=== PATIENT | male | born 1940 | race Caucasian/White ===

== ENCOUNTER 2023-10-26 13:21 | Inpatient (IN) | payer MEDICARE ==
[~2023-10-26] VITALS: Ht 175.3 cm; Wt 83.9 kg
[2023-10-26] MEDS ORDERED: ASPI81CH33 PO (14:01)
[2023-10-26 14:33] LABS: BASO # 0.1 10^3/uL (0.0-0.2); BASO % 0.4 % (0.0-1.0); EOS # 0.1 10^3/uL (0.0-0.5); EOS % 0.2 % (0.0-3.0); HEMATOCRIT 41.9 % (42.0-52.0); HEMOGLOBIN 12.4 g/dl (13.5-17.5); LYMPH # 0.6 10^3/uL (1.5-5.0); LYMPH % 1.9 % (24.0-44.0); MEAN CORPUSCULAR HEMOGLOBIN 26.9 pg (27.0-33.0); MEAN CORPUSCULAR HGB CONC 29.6 g/dl (32.0-36.5); MEAN CORPUSCULAR VOLUME 90.9 fl (80.0-96.0); MONO # 1.2 10^3/uL (0.0-0.8); MONO % 4.1 % (2.0-8.0); NEUTROPHILS # 26.3 10^3/uL (1.5-8.5); NEUTROPHILS % 92.3 % (36.0-66.0); PLATELET COUNT, AUTOMATED 371 10^3/uL (150-450); RED BLOOD COUNT 4.61 10^6/uL (4.30-6.10); WHITE BLOOD COUNT 28.5 10^3/uL (4.0-10.0)
[2023-10-26] MEDS ORDERED: methylPREDNISolone 125MG 2ML VIAL IV ONE (14:35)
[2023-10-26] MEDS ORDERED: NS 1,000 ML IV ONE (14:35)
[2023-10-26] MEDS: COMBIVENT RESPIMAT 100-20MCG INHALER 4GM INH SCH ×3 (14:35→16:05)
[2023-10-26 15:01] LABS: VENOUS BASE EXCESS 5.6 (-2.0-2.0); VENOUS HCO3 32.9 MMOL/L (23.0-27.0); VENOUS O2 SATURATION 74.2 % (60.0-80.0); VENOUS PARTIAL PRESSURE CO2 60.6 mmHg (38.0-50.0); VENOUS PARTIAL PRESSURE O2 41.1 mmHg (30.0-50.0); VENOUS PH 7.353 UNITS (7.330-7.430); VENOUS TOTAL CO2 34.8 MMOL/L (24.0-28.0)
[2023-10-26 15:04] LABS: ALBUMIN 2.5 G/DL (3.2-5.2); ALKALINE PHOSPHATASE 107 U/L (46-116); ALT/SGPT < 9 U/L (7.0-40); AST/SGOT 14 U/L (<34); BILIRUBIN,DIRECT 0.1 MG/DL (<0.4); BILIRUBIN,TOTAL 0.3 MG/DL (0.3-1.2); BLOOD UREA NITROGEN 36 MG/DL (9-23); CALCIUM LEVEL 8.6 MG/DL (8.3-10.6); CARBON DIOXIDE LEVEL 32 MMOL/L (20-31); CHLORIDE LEVEL 99 MMOL/L (98-107); CREATININE FOR GFR 1.87 MG/DL (0.70-1.30); GLUCOSE, FASTING 173 MG/DL (74-106); POTASSIUM SERUM 5.4 MMOL/L (3.5-5.1); SODIUM LEVEL 135 MMOL/L (136-145); TOTAL PROTEIN 6.7 G/DL (5.7-8.2)
[2023-10-26 15:05] LABS: RSV AMPLIFICATION NEGATIVE (NEGATIVE)
[2023-10-26 15:28] LABS: CK-MB VALUE MASS < 1.0 NG/ML (<3.6)
[2023-10-26 15:29] LABS: CPK CREATINE PHOSPHOKINASE 19 U/L (46-171); MB/CK RELATIVE INDEX 5.26 (< OR =4)
[2023-10-26] MEDS ORDERED: cefTRIAXone SOD 1 GM in D5W MINI-BAG PLUS 50 ML IV ONE (16:00)
[2023-10-26] MEDS ORDERED: TORS20TA2 PO (17:11)
[2023-10-26] MEDS ORDERED: GABA-1171 PO (17:15)
[2023-10-26] MEDS ORDERED: FLOM0.4C39 PO (17:15)
[2023-10-26] MEDS ORDERED: METO1TAB32 PO (17:15)
[2023-10-26] MEDS ORDERED: med rec comment (17:22)
[2023-10-26] MEDS ORDERED: HOME MED LIST COMPLETE! XX SCH (17:25)
[2023-10-26] MEDS ORDERED: SODIUM CHLORIDE 0.9% 1000ML IV STA (17:47)
[2023-10-26] MEDS: DOXYCYCLINE HYCLATE 100 MG in D5W MINI-BAG PLUS 100 ML IV SCH (18:56)
[2023-10-26] MEDS: PIPERACILLIN/TAZOBACTAM SOD 3.375 GM in D5W MINI-BAG PLUS 50 ML IV SCH (19:53)
[2023-10-26] MEDS ORDERED: DEXTROSE 50% 50ML SYRINGE IV PRN (20:15)
[2023-10-26] MEDS ORDERED: GLUCOSE 4GM CHEW TABLET PO PRN (20:15)
[2023-10-26] MEDS ORDERED: GLUCAGON INJ 1MG VIAL SC PRN (20:15)
[2023-10-26] MEDS: INSULIN LISPRO (NovoLOG) PER UNIT SC SCH (20:33)
[2023-10-26 21:57] VITALS: BP 139/58; TEMP 97.5; O2SAT 91
[2023-10-27] MEDS: ACETAMINOPHEN 500 MG TAB PO PRN ×3 (00:54→18:35)
[2023-10-27] MEDS ORDERED: GABAPENTIN 400MG CAP PO ONE ×2 (01:00→20:35)
[2023-10-27] MEDS: PIPERACILLIN/TAZOBACTAM SOD 3.375 GM in D5W MINI-BAG PLUS 50 ML IV SCH ×4 (01:08→20:11)
[2023-10-27 06:00] VITALS: BP 153/61; TEMP 97.2; O2SAT 96
[2023-10-27] MEDS: DOXYCYCLINE HYCLATE 100 MG in D5W MINI-BAG PLUS 100 ML IV SCH ×2 (06:07→18:35)
[2023-10-27 06:09] LABS: HEMATOCRIT 36.5 % (42.0-52.0); MEAN CORPUSCULAR HEMOGLOBIN 27.1 pg (27.0-33.0); MEAN CORPUSCULAR HGB CONC 30.1 g/dl (32.0-36.5); MEAN CORPUSCULAR VOLUME 89.9 fl (80.0-96.0); PLATELET COUNT, AUTOMATED 356 10^3/uL (150-450); RED BLOOD COUNT 4.06 10^6/uL (4.30-6.10); WHITE BLOOD COUNT 21.1 10^3/uL (4.0-10.0)
[2023-10-27 06:44] LABS: CALCIUM LEVEL 8.1 MG/DL (8.3-10.6); CREATININE FOR GFR 1.66 MG/DL (0.70-1.30); GLOMERULAR FILTRATION RATE 42.4 (>35); MAGNESIUM LEVEL 2.4 MG/DL (1.8-2.4); POTASSIUM SERUM 5.1 MMOL/L (3.5-5.1)
[2023-10-27] MEDS ORDERED: BISACODYL 5MG TAB PO PRN (09:15)
[2023-10-27] MEDS: ASPIRIN 81MG CHEW TABLET PO SCH (09:29)
[2023-10-27] MEDS: TAMSULOSIN 0.4 MG CAP PO SCH (09:29)
[2023-10-27] MEDS: GABAPENTIN 100 MG CAP PO SCH (09:29)
[2023-10-27] MEDS: METOPROLOL SUCC *XL* 25MG TAB (TopROL *XL*) PO SCH (09:29)
[2023-10-27] MEDS: ENOXAPARIN 40MG/0.4ML SYRINGE (J1650 PER 10MG) SC SCH (09:30)
[2023-10-27] MEDS: INSULIN LISPRO (NovoLOG) PER UNIT SC SCH ×5 (09:41→21:25)
[2023-10-27] MEDS: MIRALAX *UNIT DOSE* 17GM PACKET PO SCH (09:48)
[2023-10-27] MEDS: SENOKOT S TAB PO SCH ×2 (09:48→20:14)
[2023-10-27] MEDS ORDERED: PILL CUTTER 1 EACH XX ONE (10:48)
[2023-10-27] MEDS: MORPHINE 30 MG TAB **MSIR PO PRN ×2 (10:54→20:12)
[2023-10-27 12:37] LABS: IMMUNOGLOBULIN A 344.8 MG/DL (40-350); IMMUNOGLOBULIN G 1697 MG/DL (650-1600)
[2023-10-27 12:51] LABS: IMMUNOGLOBULIN E 12.9 IU/ML (0-378)
[2023-10-27 14:00] VITALS: BP 126/54; TEMP 97.7; O2SAT 97
[2023-10-27] MEDS ORDERED: FINASTERIDE 5MG TAB PO SCH (21:00)
[2023-10-27 22:00] VITALS: BP 148/89; TEMP 97.5; O2SAT 93
[2023-10-27 22:05] VITALS: BP 148/89; TEMP 97.5; O2SAT 93
[2023-10-27] MEDS ORDERED: RAMELTEON 8 MG TAB (ROZEREM) PO PRN (23:15)
[2023-10-28] MEDS: PIPERACILLIN/TAZOBACTAM SOD 3.375 GM in D5W MINI-BAG PLUS 50 ML IV SCH ×3 (02:47→14:11)
[2023-10-28 06:00] VITALS: BP 147/66; TEMP 97.7; O2SAT 96
[2023-10-28] MEDS: DOXYCYCLINE HYCLATE 100 MG in D5W MINI-BAG PLUS 100 ML IV SCH (06:10)
[2023-10-28 06:38] LABS: BASO # 0.1 10^3/uL (0.0-0.2); BASO % 0.3 % (0.0-1.0); EOS # 0.3 10^3/uL (0.0-0.5); EOS % 1.9 % (0.0-3.0); HEMATOCRIT 35.5 % (42.0-52.0); HEMOGLOBIN 10.6 g/dl (13.5-17.5); LYMPH # 1.6 10^3/uL (1.5-5.0); LYMPH % 9.3 % (24.0-44.0); MEAN CORPUSCULAR HEMOGLOBIN 27.2 pg (27.0-33.0); MEAN CORPUSCULAR HGB CONC 29.9 g/dl (32.0-36.5); MEAN CORPUSCULAR VOLUME 91.3 fl (80.0-96.0); MONO # 1.1 10^3/uL (0.0-0.8); MONO % 6.3 % (2.0-8.0); NEUTROPHILS # 13.5 10^3/uL (1.5-8.5); NEUTROPHILS % 81.7 % (36.0-66.0); PLATELET COUNT, AUTOMATED 366 10^3/uL (150-450); RED BLOOD COUNT 3.89 10^6/uL (4.30-6.10); WHITE BLOOD COUNT 16.6 10^3/uL (4.0-10.0)
[2023-10-28 07:03] LABS: C REACTIVE PROTEIN QUANTITATIV 9.7 MG/DL (<1.0)
[2023-10-28 07:05] LABS: CALCIUM LEVEL 8.4 MG/DL (8.3-10.6); CREATININE FOR GFR 1.55 MG/DL (0.70-1.30); GLOMERULAR FILTRATION RATE 45.9 (>35); MAGNESIUM LEVEL 2.3 MG/DL (1.8-2.4)
[2023-10-28] MEDS ORDERED: METR-265 PO (08:35)
[2023-10-28] MEDS ORDERED: DOXY100C3 PO (08:35)
[2023-10-28] MEDS ORDERED: LEVO1TAB40 PO (08:35)
[2023-10-28] MEDS ORDERED: PROBCAP2 PO (08:35)
[2023-10-28] MEDS: ENOXAPARIN 40MG/0.4ML SYRINGE (J1650 PER 10MG) SC SCH (09:00)
[2023-10-28] MEDS: MIRALAX *UNIT DOSE* 17GM PACKET PO SCH (09:10)
[2023-10-28] MEDS: GABAPENTIN 100 MG CAP PO SCH (09:11)
[2023-10-28] MEDS: SENOKOT S TAB PO SCH (09:11)
[2023-10-28] MEDS: ASPIRIN 81MG CHEW TABLET PO SCH (09:11)
[2023-10-28] MEDS: TAMSULOSIN 0.4 MG CAP PO SCH (09:11)
[2023-10-28 09:17] VITALS: BP 154/60
[2023-10-28] MEDS: METOPROLOL SUCC *XL* 25MG TAB (TopROL *XL*) PO SCH (09:17)
[2023-10-28] MEDS: INSULIN LISPRO (NovoLOG) PER UNIT SC SCH ×2 (09:20→13:06)
[2023-10-28] MEDS ORDERED: LACT20EL PO (10:12)
[2023-10-28] MEDS ORDERED: DOCU8.6T PO (10:12)
[2023-10-28] MEDS ORDERED: POLY17PO18 PO (10:12)
[2023-10-28] MEDS: ACETAMINOPHEN 500 MG TAB PO PRN (11:29)
[2023-10-28 14:00] VITALS: BP 150/58; TEMP 97.5; O2SAT 92
[2023-10-28] MEDS ORDERED: DOXYCYCLINE HYCLATE 100MG TABLET PO SCH (21:00)
[2023-10-29 15:12] LABS: BODY FLUID CULTURE Not indicated. (.); LEGIONELLA ANTIGEN URINE Negative (Negative); ORGANISM ID Not indicated. (.); SPECIMEN SOURCE Urine (.); URINE STREP PNEUMONIAE ANTIGEN Negative (Negative)
== END 2023-10-28 15:58 | disposition home or self-care (01) | DRG 871 ==
LOC: EDBD 13:21 → EDSEX 13:21 → M ED 13:21 → M ED INP 17:39 → M MSPAV 21:56
PROVIDERS: ADMIT Internal Medicine; ATTEND Internal Medicine
DX: A41.9 Sepsis, unspecified organism (principal); J18.9 Pneumonia, unspecified organism; J96.01 Acute respiratory failure with hypoxia; N17.0 Acute kidney failure with tubular necrosis; I50.32 Chronic diastolic (congestive) heart failure; I13.0 Hypertensive heart and chronic kidney disease with heart failure and stage 1 through stage 4 chronic kidney disease, or unspecified chronic kidney disease; E78.5 Hyperlipidemia, unspecified; I25.10 Atherosclerotic heart disease of native coronary artery without angina pectoris; G89.29 Other chronic pain; E11.40 Type 2 diabetes mellitus with diabetic neuropathy, unspecified; N40.1 Benign prostatic hyperplasia with lower urinary tract symptoms; R33.9 Retention of urine, unspecified; E11.51 Type 2 diabetes mellitus with diabetic peripheral angiopathy without gangrene; J47.9 Bronchiectasis, uncomplicated; K59.09 Other constipation; K21.9 Gastro-esophageal reflux disease without esophagitis; I44.7 Left bundle-branch block, unspecified; E11.22 Type 2 diabetes mellitus with diabetic chronic kidney disease; N18.30 Chronic kidney disease, stage 3 unspecified; K55.20 Angiodysplasia of colon without hemorrhage; Z95.5 Presence of coronary angioplasty implant and graft; Z89.422 Acquired absence of other left toe(s); Z99.81 Dependence on supplemental oxygen; Z79.82 Long term (current) use of aspirin; Z79.899 Other long term (current) drug therapy; E11.65 Type 2 diabetes mellitus with hyperglycemia

== ENCOUNTER 2023-10-31 18:24 | Emergency (ER) | payer MEDICARE ==
[~2023-10-31] VITALS: Ht 175.3 cm; Wt 83.9 kg
[~2023-10-31 18:24] MED LIST: ASPI81CH33 PO; DOCU8.6T PO; DOXY100C3 PO; FLOM0.4C39 PO; GABA-1171 PO; LACT20EL PO; LEVO1TAB40 PO; METO1TAB32 PO; METR-265 PO; POLY17PO18 PO; PROBCAP2 PO; TORS20TA2 PO; med rec comment
[2023-10-31 18:38] VITALS: TEMP 97.5
[2023-10-31] MEDS ORDERED: NS 500 ML IV ONE (18:40)
[2023-10-31 19:03] LABS: BASO # 0.1 10^3/uL (0.0-0.2); BASO % 0.8 % (0.0-1.0); EOS # 0.4 10^3/uL (0.0-0.5); EOS % 3.7 % (0.0-3.0); HEMOGLOBIN 12.4 g/dl (13.5-17.5); LYMPH # 1.1 10^3/uL (1.5-5.0); LYMPH % 10.4 % (24.0-44.0); MEAN CORPUSCULAR HEMOGLOBIN 27.1 pg (27.0-33.0); MEAN CORPUSCULAR HGB CONC 30.2 g/dl (32.0-36.5); MEAN CORPUSCULAR VOLUME 89.7 fl (80.0-96.0); MONO # 0.7 10^3/uL (0.0-0.8); MONO % 6.4 % (2.0-8.0); NEUTROPHILS # 7.9 10^3/uL (1.5-8.5); NEUTROPHILS % 77.5 % (36.0-66.0); PLATELET COUNT, AUTOMATED 416 10^3/uL (150-450); RED BLOOD COUNT 4.57 10^6/uL (4.30-6.10); WHITE BLOOD COUNT 10.1 10^3/uL (4.0-10.0)
[2023-10-31 19:32] LABS: ALBUMIN 2.4 G/DL (3.2-5.2); ALKALINE PHOSPHATASE 86 U/L (46-116); ALT/SGPT < 9 U/L (7.0-40); AST/SGOT < 8 U/L (<34); BILIRUBIN,DIRECT 0.2 MG/DL (<0.4); BILIRUBIN,TOTAL 0.3 MG/DL (0.3-1.2); BLOOD UREA NITROGEN 21 MG/DL (9-23); CALCIUM LEVEL 8.9 MG/DL (8.3-10.6); CARBON DIOXIDE LEVEL 28 MMOL/L (20-31); CHLORIDE LEVEL 105 MMOL/L (98-107); CK-MB VALUE MASS < 1.0 NG/ML (<3.6); CPK CREATINE PHOSPHOKINASE 25 U/L (46-171); CREATININE FOR GFR 1.06 MG/DL (0.70-1.30); GLOMERULAR FILTRATION RATE > 60.0 (>35); GLUCOSE, FASTING 152 MG/DL (74-106); POTASSIUM SERUM 5.2 MMOL/L (3.5-5.1); SODIUM LEVEL 135 MMOL/L (136-145); TOTAL PROTEIN 6.3 G/DL (5.7-8.2)
[2023-10-31 19:34] LABS: THYROXINE (T4) 7.9 UG/DL (4.5-10.9)
[2023-10-31 19:35] LABS: THYROID STIMULATING HORMONE 0.973 uIU/ML (0.55-4.78)
[2023-10-31 20:12] LABS: PROCALCITONIN 0.11 ng/ml
[2023-10-31 20:21] LABS: CK-MB VALUE MASS < 1.0 NG/ML (<3.6)
[2023-10-31 20:24] LABS: CPK CREATINE PHOSPHOKINASE 18 U/L (46-171); MB/CK RELATIVE INDEX 5.55 (< OR =4)
[2023-10-31 21:20] VITALS: O2SAT 92
[2023-10-31 22:31] VITALS: BP 169/95; O2SAT 94
== END 2023-10-31 22:38 | disposition home or self-care (01) ==
LOC: EDBD 18:24 → M ED 18:24
DX: I50.9 Heart failure, unspecified (principal); R53.1 Weakness; I25.10 Atherosclerotic heart disease of native coronary artery without angina pectoris; E11.9 Type 2 diabetes mellitus without complications; I10 Essential (primary) hypertension; K21.9 Gastro-esophageal reflux disease without esophagitis; F17.200 Nicotine dependence, unspecified, uncomplicated; Z79.82 Long term (current) use of aspirin; Z79.899 Other long term (current) drug therapy

== ENCOUNTER 2023-11-05 12:04 | Inpatient (IN) | payer MEDICARE ==
[~2023-11-05] VITALS: Ht 175.3 cm; Wt 84.1 kg
[2023-11-05 12:56] LABS: BASO # 0.1 10^3/uL (0.0-0.2); BASO % 0.4 % (0.0-1.0); EOS # 0.2 10^3/uL (0.0-0.5); EOS % 1.1 % (0.0-3.0); HEMATOCRIT 40.9 % (42.0-52.0); HEMOGLOBIN 12.2 g/dl (13.5-17.5); LYMPH # 0.7 10^3/uL (1.5-5.0); LYMPH % 3.8 % (24.0-44.0); MEAN CORPUSCULAR HEMOGLOBIN 26.9 pg (27.0-33.0); MEAN CORPUSCULAR HGB CONC 29.8 g/dl (32.0-36.5); MEAN CORPUSCULAR VOLUME 90.3 fl (80.0-96.0); MONO # 1.2 10^3/uL (0.0-0.8); MONO % 6.7 % (2.0-8.0); NEUTROPHILS % 87.2 % (36.0-66.0); PLATELET COUNT, AUTOMATED 346 10^3/uL (150-450); RED BLOOD COUNT 4.53 10^6/uL (4.30-6.10); WHITE BLOOD COUNT 18.4 10^3/uL (4.0-10.0)
[2023-11-05] MEDS ORDERED: NS 1,000 ML IV SCH (13:05)
[2023-11-05] MEDS ORDERED: NS 500 ML IV ONE (13:05)
[2023-11-05 13:24] LABS: BLOOD UREA NITROGEN 39 MG/DL (9-23); CALCIUM LEVEL 8.5 MG/DL (8.3-10.6); CARBON DIOXIDE LEVEL 30 MMOL/L (20-31); CHLORIDE LEVEL 98 MMOL/L (98-107); CK-MB VALUE MASS < 1.0 NG/ML (<3.6); CPK CREATINE PHOSPHOKINASE < 15 U/L (46-171); CREATININE FOR GFR 2.19 MG/DL (0.70-1.30); GLOMERULAR FILTRATION RATE 30.8 (>35); GLUCOSE, FASTING 141 MG/DL (74-106); POTASSIUM SERUM 4.1 MMOL/L (3.5-5.1); SODIUM LEVEL 133 MMOL/L (136-145)
[2023-11-05 13:26] LABS: THYROID STIMULATING HORMONE 1.375 uIU/ML (0.55-4.78)
[2023-11-05 13:27] LABS: FREE T4 1.14 NG/DL (0.89-1.76)
[2023-11-05 13:45] LABS: RSV AMPLIFICATION NEGATIVE (NEGATIVE)
[2023-11-05] MEDS ORDERED: cefTRIAXone SOD 2 GM in D5W MINI-BAG PLUS 50 ML IV ONE (14:05)
[2023-11-05] MEDS ORDERED: AZITHROMYCIN INJ 500 MG, VIAL MATE ADAPTER 1 EACH in D5W 250 ML IV ONE (14:05)
[2023-11-05 14:25] LABS: CK-MB VALUE MASS < 1.0 NG/ML (<3.6)
[2023-11-05 14:29] LABS: CPK CREATINE PHOSPHOKINASE < 15 U/L (46-171)
[2023-11-05] MEDS ORDERED: GOOD8.6T2 PO (14:41)
[2023-11-05] MEDS ORDERED: METR-265 PO (14:41)
[2023-11-05] MEDS ORDERED: GABA-284 PO (14:41)
[2023-11-05] MEDS ORDERED: BACI1CAP PO (14:41)
[2023-11-05] MEDS ORDERED: LEVO750T14 PO (14:41)
[2023-11-05] MEDS ORDERED: DOXY100T PO (14:41)
[2023-11-05] MEDS ORDERED: HOME MED LIST COMPLETE! XX SCH (14:45)
[2023-11-05] MEDS ORDERED: IPRATROPIUM 0.5MG/ALBUTEROL 2.5MG INH SOL UD 3ML (DUONEB) NEB PRN (14:50)
[2023-11-05 16:06] LABS: COMPLEMENT C3 89.4 MG/DL (90.0-170.0); COMPLEMENT C4 17.1 MG/DL (12-36); IMMUNOGLOBULIN A 305.3 MG/DL (40-350); IMMUNOGLOBULIN G 1384 MG/DL (650-1600)
[2023-11-05] MEDS: IPRATROPIUM 0.5MG/ALBUTEROL 2.5MG INH SOL UD 3ML (DUONEB) NEB SCH ×2 (16:19→19:49)
[2023-11-05] MEDS ORDERED: SENOKOT S TAB PO PRN (17:00)
[2023-11-05] MEDS: PANTOPRAZOLE 40MG TAB (PROTONIX) PO SCH (18:33)
[2023-11-05] MEDS: LACTOBACILLUS ACIDOPHILUS CAP (BACID) PO SCH ×2 (18:34→20:10)
[2023-11-05] MEDS ORDERED: D5W/0.9% SODIUM CHLORIDE 1,000 ML IV SCH (19:25)
[2023-11-05 19:35] LABS: CK-MB VALUE MASS < 1.0 NG/ML (<3.6)
[2023-11-05 19:38] LABS: CPK CREATINE PHOSPHOKINASE 17 U/L (46-171); MB/CK RELATIVE INDEX 5.88 (< OR =4)
[2023-11-05 20:04] LABS: HIV 1&2 SCREEN NEGATIVE (NEGATIVE)
[2023-11-05 20:13] LABS: HEPATITIS C VIRUS ABY INDEX 0.32 INDEX (<0.8)
[2023-11-05] MEDS: PIPERACILLIN/TAZOBACTAM SOD 3.375 GM in D5W MINI-BAG PLUS 50 ML IV SCH (20:15)
[2023-11-05] MEDS ORDERED: DOXYCYCLINE HYCLATE 100 MG in D5W MINI-BAG PLUS 100 ML IV SCH (21:00)
[2023-11-06 01:00] LABS: CK-MB VALUE MASS < 1.0 NG/ML (<3.6)
[2023-11-06 01:02] LABS: CPK CREATINE PHOSPHOKINASE 15 U/L (46-171); MB/CK RELATIVE INDEX 6.66 (< OR =4)
[2023-11-06] MEDS: PIPERACILLIN/TAZOBACTAM SOD 3.375 GM in D5W MINI-BAG PLUS 50 ML IV SCH ×4 (03:03→20:19)
[2023-11-06 06:14] LABS: BASO # 0.1 10^3/uL (0.0-0.2); BASO % 0.4 % (0.0-1.0); EOS # 0.6 10^3/uL (0.0-0.5); HEMATOCRIT 34.8 % (42.0-52.0); HEMOGLOBIN 10.6 g/dl (13.5-17.5); LYMPH % 8.4 % (24.0-44.0); MEAN CORPUSCULAR HEMOGLOBIN 27.1 pg (27.0-33.0); MEAN CORPUSCULAR HGB CONC 30.5 g/dl (32.0-36.5); MONO # 1.2 10^3/uL (0.0-0.8); MONO % 10.1 % (2.0-8.0); NEUTROPHILS % 75.6 % (36.0-66.0); PLATELET COUNT, AUTOMATED 320 10^3/uL (150-450); RED BLOOD COUNT 3.91 10^6/uL (4.30-6.10); WHITE BLOOD COUNT 11.8 10^3/uL (4.0-10.0)
[2023-11-06 06:37] LABS: CK-MB VALUE MASS < 1.0 NG/ML (<3.6)
[2023-11-06 06:39] LABS: BLOOD UREA NITROGEN 34 MG/DL (9-23); CALCIUM LEVEL 7.8 MG/DL (8.3-10.6); CARBON DIOXIDE LEVEL 29 MMOL/L (20-31); CHLORIDE LEVEL 104 MMOL/L (98-107); CPK CREATINE PHOSPHOKINASE 18 U/L (46-171); GLOMERULAR FILTRATION RATE 38.6 (>35); GLUCOSE, FASTING 158 MG/DL (74-106); MAGNESIUM LEVEL 1.8 MG/DL (1.8-2.4); MB/CK RELATIVE INDEX 5.55 (< OR =4); POTASSIUM SERUM 4.2 MMOL/L (3.5-5.1); SODIUM LEVEL 139 MMOL/L (136-145)
[2023-11-06] MEDS: LACTOBACILLUS ACIDOPHILUS CAP (BACID) PO SCH ×4 (08:00→20:14)
[2023-11-06] MEDS: IPRATROPIUM 0.5MG/ALBUTEROL 2.5MG INH SOL UD 3ML (DUONEB) NEB SCH ×4 (08:29→19:04)
[2023-11-06] MEDS: PANTOPRAZOLE 40MG TAB (PROTONIX) PO SCH (08:51)
[2023-11-06] MEDS: ASPIRIN 81MG CHEW TABLET PO SCH (08:51)
[2023-11-06] MEDS: GABAPENTIN 400MG CAP PO SCH (08:51)
[2023-11-06] MEDS: TAMSULOSIN 0.4 MG CAP PO SCH (08:52)
[2023-11-06] MEDS: METOPROLOL SUCC *XL* 25MG TAB (TopROL *XL*) PO SCH (08:52)
[2023-11-06 09:00] VITALS: BP 168/71; O2SAT 99
[2023-11-06 09:30] VITALS: TEMP 97.3
[2023-11-06] MEDS ORDERED: ACETAMINOPHEN *IV* 1,000 MG in IV 1 EA IV ONE (10:15)
[2023-11-06] MEDS ORDERED: CETACAINE SPRAY 5GM As Ordered ONE (12:50)
[2023-11-06] MEDS ORDERED: SUGAMMADEX SODIUM 500 MG/5 ML VIAL (BRIDION) As Ordered ONE (13:23)
[2023-11-06] MEDS ORDERED: fentaNYL 100 MCG/2 ML INJECTION As Ordered ONE (13:23)
[2023-11-06] MEDS ORDERED: MIDAZOLAM INJ 2MG/2ML VIAL As Ordered ONE (13:23)
[2023-11-06] MEDS ORDERED: ROCURONIUM BROMIDE 50MG/5ML VIAL As Ordered ONE (13:23)
[2023-11-06] MEDS ORDERED: ONDANSETRON 4MG 2ML VIAL As Ordered ONE (13:23)
[2023-11-06] MEDS ORDERED: LIDOCAINE 2% 100MG/5ML SDV (FOR ANES.) As Ordered ONE (13:23)
[2023-11-06] MEDS ORDERED: propofoL 200 MG/20 ML VIAL As Ordered ONE (13:23)
[2023-11-06] MEDS ORDERED: ePHEDrine SULFATE 25 MG/5 ML(5MG/ML) SYRINGE As Ordered ONE (13:28)
[2023-11-06] MEDS ORDERED: cefTRIAXone SOD 2 GM in D5W MINI-BAG PLUS 50 ML IV SCH (14:00)
[2023-11-06 14:42] VITALS: BP 130/73; TEMP 97.3; O2SAT 96
[2023-11-06] MEDS ORDERED: MORPHINE 30 MG TAB **MSIR PO SCH (17:35)
[2023-11-06] MEDS ORDERED: PILL CUTTER 1 EACH XX PRN (17:45)
[2023-11-06] MEDS: INSULIN LISPRO (NovoLOG) PER UNIT SC SCH ×2 (18:12→21:18)
[2023-11-06] MEDS: MORPHINE 30 MG TAB **MSIR PO SCH (20:14)
[2023-11-06] MEDS: RAMELTEON 8 MG TAB (ROZEREM) PO SCH (21:00)
[2023-11-06 21:31] VITALS: BP 138/60; TEMP 97.4; O2SAT 99
[2023-11-06] MEDS ORDERED: MAALOX 30 ML SUSP *UDC PO PRN (21:50)
[2023-11-07] MEDS: PIPERACILLIN/TAZOBACTAM SOD 3.375 GM in D5W MINI-BAG PLUS 50 ML IV SCH ×4 (02:43→20:14)
[2023-11-07 05:33] VITALS: BP 154/69; TEMP 97.3; O2SAT 96
[2023-11-07 06:22] LABS: BASO % 0.3 % (0.0-1.0); EOS % 0.2 % (0.0-3.0); HEMATOCRIT 34.6 % (42.0-52.0); HEMOGLOBIN 10.7 g/dl (13.5-17.5); LYMPH # 0.5 10^3/uL (1.5-5.0); LYMPH % 4.5 % (24.0-44.0); MEAN CORPUSCULAR HEMOGLOBIN 27.6 pg (27.0-33.0); MEAN CORPUSCULAR HGB CONC 30.9 g/dl (32.0-36.5); MEAN CORPUSCULAR VOLUME 89.2 fl (80.0-96.0); MONO # 0.6 10^3/uL (0.0-0.8); MONO % 5.7 % (2.0-8.0); NEUTROPHILS # 10.1 10^3/uL (1.5-8.5); NEUTROPHILS % 88.8 % (36.0-66.0); PLATELET COUNT, AUTOMATED 342 10^3/uL (150-450); RED BLOOD COUNT 3.88 10^6/uL (4.30-6.10); WHITE BLOOD COUNT 11.3 10^3/uL (4.0-10.0)
[2023-11-07 06:50] LABS: CALCIUM LEVEL 8.6 MG/DL (8.3-10.6); CREATININE FOR GFR 1.53 MG/DL (0.70-1.30); GLOMERULAR FILTRATION RATE 46.6 (>35); MAGNESIUM LEVEL 2.1 MG/DL (1.8-2.4); POTASSIUM SERUM 4.6 MMOL/L (3.5-5.1)
[2023-11-07] MEDS: IPRATROPIUM 0.5MG/ALBUTEROL 2.5MG INH SOL UD 3ML (DUONEB) NEB SCH ×4 (07:04→20:00)
[2023-11-07] MEDS: GABAPENTIN 400MG CAP PO SCH (08:08)
[2023-11-07] MEDS: INSULIN LISPRO (NovoLOG) PER UNIT SC SCH ×4 (08:08→20:19)
[2023-11-07] MEDS: ASPIRIN 81MG CHEW TABLET PO SCH (08:09)
[2023-11-07] MEDS: LACTOBACILLUS ACIDOPHILUS CAP (BACID) PO SCH ×4 (08:09→20:14)
[2023-11-07] MEDS: PANTOPRAZOLE 40MG TAB (PROTONIX) PO SCH (08:09)
[2023-11-07] MEDS: TAMSULOSIN 0.4 MG CAP PO SCH (08:09)
[2023-11-07] MEDS: METOPROLOL SUCC *XL* 25MG TAB (TopROL *XL*) PO SCH (08:13)
[2023-11-07] MEDS: MORPHINE 30 MG TAB **MSIR PO SCH ×2 (08:15→20:15)
[2023-11-07] MEDS: SENOKOT S TAB PO SCH ×2 (09:00→20:16)
[2023-11-07] MEDS: NS 0.45% 1,000 ML IV SCH (10:54)
[2023-11-07 13:44] VITALS: BP 149/69; TEMP 97.5; O2SAT 10; O2SAT 100
[2023-11-07] MEDS: RAMELTEON 8 MG TAB (ROZEREM) PO SCH (20:19)
[2023-11-07 21:03] VITALS: BP 164/68; TEMP 97.6; O2SAT 99
[2023-11-07] MEDS ORDERED: TIMO0.5S39 OU (21:38)
[2023-11-07] MEDS ORDERED: INSU100V19 SC (21:38)
[2023-11-07] MEDS ORDERED: BRIM0.2S13 OU (21:38)
[2023-11-07] MEDS ORDERED: HUMU1INJ2 SC (21:38)
[2023-11-07] MEDS: LEVEMIR (INSULIN DETEMIR) 1 UNITS/0.01ML SC SCH (22:23)
[2023-11-08] MEDS: PIPERACILLIN/TAZOBACTAM SOD 3.375 GM in D5W MINI-BAG PLUS 50 ML IV SCH ×4 (03:36→22:06)
[2023-11-08] MEDS: NS 0.45% 1,000 ML IV SCH ×2 (03:36→11:21)
[2023-11-08 05:34] VITALS: BP 159/66; TEMP 98.3; O2SAT 91
[2023-11-08 06:14] LABS: BASO # 0.1 10^3/uL (0.0-0.2); BASO % 0.7 % (0.0-1.0); EOS # 0.7 10^3/uL (0.0-0.5); EOS % 6.8 % (0.0-3.0); HEMATOCRIT 34.6 % (42.0-52.0); HEMOGLOBIN 10.5 g/dl (13.5-17.5); LYMPH # 1.9 10^3/uL (1.5-5.0); LYMPH % 18.7 % (24.0-44.0); MEAN CORPUSCULAR HEMOGLOBIN 27.4 pg (27.0-33.0); MEAN CORPUSCULAR HGB CONC 30.3 g/dl (32.0-36.5); MEAN CORPUSCULAR VOLUME 90.3 fl (80.0-96.0); MONO # 0.9 10^3/uL (0.0-0.8); NEUTROPHILS # 6.5 10^3/uL (1.5-8.5); NEUTROPHILS % 64.5 % (36.0-66.0); PLATELET COUNT, AUTOMATED 369 10^3/uL (150-450); RED BLOOD COUNT 3.83 10^6/uL (4.30-6.10); WHITE BLOOD COUNT 10.1 10^3/uL (4.0-10.0)
[2023-11-08 06:43] LABS: CALCIUM LEVEL 8.9 MG/DL (8.3-10.6); CREATININE FOR GFR 1.47 MG/DL (0.70-1.30); GLOMERULAR FILTRATION RATE 48.8 (>35); POTASSIUM SERUM 4.6 MMOL/L (3.5-5.1)
[2023-11-08] MEDS: IPRATROPIUM 0.5MG/ALBUTEROL 2.5MG INH SOL UD 3ML (DUONEB) NEB SCH ×4 (07:09→21:05)
[2023-11-08] MEDS: HumuLIN N INSULIN (NovoLIN N) PER UNIT SC SCH ×2 (08:00→18:00)
[2023-11-08] MEDS ORDERED: BRIMONIDINE TARTRATE 0.2% OU SCH (09:00)
[2023-11-08] MEDS ORDERED: TIMOLOL MALEATE 0.5% OPHTH SOLN 5 ML OU SCH (09:00)
[2023-11-08] MEDS: LEVEMIR (INSULIN DETEMIR) 1 UNITS/0.01ML SC SCH (09:00)
[2023-11-08] MEDS: INSULIN LISPRO (NovoLOG) PER UNIT SC SCH ×4 (09:28→20:29)
[2023-11-08] MEDS: ASPIRIN 81MG CHEW TABLET PO SCH (09:28)
[2023-11-08] MEDS: PANTOPRAZOLE 40MG TAB (PROTONIX) PO SCH (09:29)
[2023-11-08] MEDS: LACTOBACILLUS ACIDOPHILUS CAP (BACID) PO SCH ×4 (09:29→22:02)
[2023-11-08] MEDS: TAMSULOSIN 0.4 MG CAP PO SCH (09:29)
[2023-11-08] MEDS: SENOKOT S TAB PO SCH ×2 (09:29→22:02)
[2023-11-08] MEDS: GABAPENTIN 400MG CAP PO SCH (09:29)
[2023-11-08] MEDS: MORPHINE 30 MG TAB **MSIR PO SCH ×2 (09:31→22:05)
[2023-11-08] MEDS: METOPROLOL SUCC *XL* 25MG TAB (TopROL *XL*) PO SCH (09:33)
[2023-11-08] MEDS ORDERED: TORS20TA2 PO (10:09)
[2023-11-08] MEDS: TIMOLOL MALEATE 0.5% OPHTH SOLN 5 ML OU SCH ×2 (10:53→22:06)
[2023-11-08] MEDS: BRIMONIDINE 0.1% OPHTH SOLN 5ML OU SCH ×2 (10:54→22:06)
[2023-11-08] MEDS: ACETAMINOPHEN TAB 650MG DOSE (2X325MG) PO PRN (11:29)
[2023-11-08 14:00] VITALS: BP 161/66; TEMP 97.5; O2SAT 100
[2023-11-08 19:53] LABS: BLOOD UREA NITROGEN 19 MG/DL (9-23); CALCIUM LEVEL 8.7 MG/DL (8.3-10.6); CARBON DIOXIDE LEVEL 29 MMOL/L (20-31); CHLORIDE LEVEL 105 MMOL/L (98-107); CREATININE FOR GFR 1.22 MG/DL (0.70-1.30); GLOMERULAR FILTRATION RATE > 60.0 (>35); GLUCOSE, FASTING 207 MG/DL (74-106); POTASSIUM SERUM 4.4 MMOL/L (3.5-5.1); SODIUM LEVEL 137 MMOL/L (136-145)
[2023-11-08 20:06] VITALS: BP 165/72; TEMP 97.5; O2SAT 93
[2023-11-08] MEDS: RAMELTEON 8 MG TAB (ROZEREM) PO SCH (22:03)
[2023-11-09] MEDS: PIPERACILLIN/TAZOBACTAM SOD 3.375 GM in D5W MINI-BAG PLUS 50 ML IV SCH ×4 (03:02→20:51)
[2023-11-09] MEDS: ACETAMINOPHEN TAB 650MG DOSE (2X325MG) PO PRN (03:33)
[2023-11-09 05:06] VITALS: BP 160/66; TEMP 97.3; O2SAT 97
[2023-11-09 06:24] LABS: BASO # 0.1 10^3/uL (0.0-0.2); EOS # 0.8 10^3/uL (0.0-0.5); EOS % 8.4 % (0.0-3.0); HEMATOCRIT 35.1 % (42.0-52.0); HEMOGLOBIN 10.4 g/dl (13.5-17.5); LYMPH # 1.6 10^3/uL (1.5-5.0); LYMPH % 17.3 % (24.0-44.0); MEAN CORPUSCULAR HEMOGLOBIN 26.9 pg (27.0-33.0); MEAN CORPUSCULAR HGB CONC 29.6 g/dl (32.0-36.5); MEAN CORPUSCULAR VOLUME 90.7 fl (80.0-96.0); MONO % 10.6 % (2.0-8.0); NEUTROPHILS # 5.9 10^3/uL (1.5-8.5); NEUTROPHILS % 62.4 % (36.0-66.0); PLATELET COUNT, AUTOMATED 323 10^3/uL (150-450); RED BLOOD COUNT 3.87 10^6/uL (4.30-6.10); WHITE BLOOD COUNT 9.5 10^3/uL (4.0-10.0)
[2023-11-09 06:58] LABS: BLOOD UREA NITROGEN 17 MG/DL (9-23); CALCIUM LEVEL 9.3 MG/DL (8.3-10.6); CARBON DIOXIDE LEVEL 30 MMOL/L (20-31); CHLORIDE LEVEL 104 MMOL/L (98-107); CREATININE FOR GFR 1.16 MG/DL (0.70-1.30); GLOMERULAR FILTRATION RATE > 60.0 (>35); GLUCOSE, FASTING 202 MG/DL (74-106); MAGNESIUM LEVEL 1.9 MG/DL (1.8-2.4); POTASSIUM SERUM 4.4 MMOL/L (3.5-5.1); SODIUM LEVEL 137 MMOL/L (136-145)
[2023-11-09] MEDS: IPRATROPIUM 0.5MG/ALBUTEROL 2.5MG INH SOL UD 3ML (DUONEB) NEB SCH ×4 (07:32→19:17)
[2023-11-09] MEDS: LACTOBACILLUS ACIDOPHILUS CAP (BACID) PO SCH ×4 (07:34→20:51)
[2023-11-09] MEDS: INSULIN LISPRO (NovoLOG) PER UNIT SC SCH ×4 (07:35→20:55)
[2023-11-09] MEDS: HumuLIN N INSULIN (NovoLIN N) PER UNIT SC SCH ×2 (08:00→18:00)
[2023-11-09] MEDS: METOPROLOL SUCC *XL* 25MG TAB (TopROL *XL*) PO SCH (09:00)
[2023-11-09] MEDS ORDERED: LEVEMIR (INSULIN DETEMIR) 1 UNITS/0.01ML SC SCH (09:00)
[2023-11-09] MEDS: PANTOPRAZOLE 40MG TAB (PROTONIX) PO SCH (09:28)
[2023-11-09] MEDS: GABAPENTIN 400MG CAP PO SCH (09:28)
[2023-11-09] MEDS: ASPIRIN 81MG CHEW TABLET PO SCH (09:28)
[2023-11-09] MEDS: SENOKOT S TAB PO SCH ×2 (09:28→20:51)
[2023-11-09] MEDS: TAMSULOSIN 0.4 MG CAP PO SCH (09:29)
[2023-11-09] MEDS: TIMOLOL MALEATE 0.5% OPHTH SOLN 5 ML OU SCH ×2 (09:32→20:57)
[2023-11-09] MEDS: BRIMONIDINE 0.1% OPHTH SOLN 5ML OU SCH ×2 (09:32→20:58)
[2023-11-09] MEDS: MORPHINE 30 MG TAB **MSIR PO SCH ×2 (09:58→20:55)
[2023-11-09] MEDS: NS 0.45% 1,000 ML IV SCH (11:00)
[2023-11-09 14:00] VITALS: BP 166/72; TEMP 97.3; O2SAT 91
[2023-11-09 20:14] VITALS: BP 142/119; TEMP 97.5; O2SAT 99
[2023-11-09 20:24] VITALS: BP 146/52
[2023-11-09] MEDS: RAMELTEON 8 MG TAB (ROZEREM) PO SCH (20:51)
[2023-11-09] MEDS ORDERED: DEXTROSE 50% 50ML SYRINGE IV PRN (22:00)
[2023-11-09] MEDS ORDERED: GLUCAGON INJ 1MG VIAL SC PRN (22:00)
[2023-11-09] MEDS ORDERED: GLUCOSE 4GM CHEW TABLET PO PRN (22:00)
[2023-11-10] MEDS ORDERED: LIDOCAINE 5% (LIDODERM) PATCH TD ONE
[2023-11-10] MEDS: PIPERACILLIN/TAZOBACTAM SOD 3.375 GM in D5W MINI-BAG PLUS 50 ML IV SCH ×3 (03:56→14:37)
[2023-11-10 05:14] VITALS: BP 185/60; TEMP 97.5; O2SAT 95
[2023-11-10 06:32] LABS: BASO # 0.1 10^3/uL (0.0-0.2); EOS # 0.7 10^3/uL (0.0-0.5); EOS % 7.5 % (0.0-3.0); HEMATOCRIT 38.1 % (42.0-52.0); HEMOGLOBIN 11.5 g/dl (13.5-17.5); LYMPH # 1.3 10^3/uL (1.5-5.0); LYMPH % 13.8 % (24.0-44.0); MEAN CORPUSCULAR HEMOGLOBIN 27.4 pg (27.0-33.0); MEAN CORPUSCULAR HGB CONC 30.2 g/dl (32.0-36.5); MEAN CORPUSCULAR VOLUME 90.9 fl (80.0-96.0); MONO # 0.9 10^3/uL (0.0-0.8); MONO % 9.1 % (2.0-8.0); NEUTROPHILS # 6.6 10^3/uL (1.5-8.5); PLATELET COUNT, AUTOMATED 344 10^3/uL (150-450); RED BLOOD COUNT 4.19 10^6/uL (4.30-6.10); WHITE BLOOD COUNT 9.7 10^3/uL (4.0-10.0)
[2023-11-10 06:49] LABS: BLOOD UREA NITROGEN 15 MG/DL (9-23); CALCIUM LEVEL 9.5 MG/DL (8.3-10.6); CARBON DIOXIDE LEVEL 29 MMOL/L (20-31); CHLORIDE LEVEL 104 MMOL/L (98-107); CREATININE FOR GFR 1.13 MG/DL (0.70-1.30); GLOMERULAR FILTRATION RATE > 60.0 (>35); GLUCOSE, FASTING 192 MG/DL (74-106); MAGNESIUM LEVEL 1.9 MG/DL (1.8-2.4); POTASSIUM SERUM 4.5 MMOL/L (3.5-5.1); SODIUM LEVEL 135 MMOL/L (136-145)
[2023-11-10 07:04] VITALS: BP 152/78
[2023-11-10] MEDS: IPRATROPIUM 0.5MG/ALBUTEROL 2.5MG INH SOL UD 3ML (DUONEB) NEB SCH ×3 (07:36→16:00)
[2023-11-10] MEDS: INSULIN LISPRO (NovoLOG) PER UNIT SC SCH ×4 (08:05→17:30)
[2023-11-10] MEDS: ASPIRIN 81MG CHEW TABLET PO SCH (08:08)
[2023-11-10] MEDS: GABAPENTIN 400MG CAP PO SCH (08:08)
[2023-11-10] MEDS: HumuLIN N INSULIN (NovoLIN N) PER UNIT SC SCH ×2 (08:08→17:30)
[2023-11-10] MEDS: MORPHINE 30 MG TAB **MSIR PO SCH (08:09)
[2023-11-10] MEDS: METOPROLOL SUCC *XL* 25MG TAB (TopROL *XL*) PO SCH (08:11)
[2023-11-10] MEDS: SENOKOT S TAB PO SCH (08:11)
[2023-11-10] MEDS: LACTOBACILLUS ACIDOPHILUS CAP (BACID) PO SCH ×3 (08:11→17:25)
[2023-11-10] MEDS: PANTOPRAZOLE 40MG TAB (PROTONIX) PO SCH (08:11)
[2023-11-10] MEDS: BRIMONIDINE 0.1% OPHTH SOLN 5ML OU SCH (08:12)
[2023-11-10] MEDS: TAMSULOSIN 0.4 MG CAP PO SCH (08:12)
[2023-11-10] MEDS: TIMOLOL MALEATE 0.5% OPHTH SOLN 5 ML OU SCH (08:16)
[2023-11-10 13:23] VITALS: BP 162/71; TEMP 98.1; O2SAT 95
[2023-11-10] MEDS ORDERED: amLODIPine 5 MG TAB PO ONE (16:10)
[2023-11-10] MEDS ORDERED: FUROSEMIDE 40MG/4ML VIAL IV ONE (16:10)
[2023-11-10] MEDS ORDERED: TORS20TA2 PO (16:22)
[2023-11-10 17:29] VITALS: BP 168/54
[2023-11-11] MEDS ORDERED: TORSEMIDE 20 MG TAB PO SCH (09:00)
[2023-11-11 18:09] LABS: ASPERGILLUS FLAVUS ABY Negative (Neg:<1:1); ASPERGILLUS FUMIGATUS ABY Negative (Neg:<1:1); ASPERGILLUS GALACTOMANNAN AG 0.07 Index (0.00-0.49); ASPERGILLUS NIGER ABY Negative (Neg:<1:1); CRYPTOCOCCUS ANTIBODY SERUM Negative (Neg:<1:2); CRYPTOCOCCUS ANTIGEN SER Negative (Negative); HEPATITIS B CORE ANTIBODY IGG Negative (Negative)
[2023-11-13 20:08] LABS: COMPLEMENT C5 16 mg/dL (7-20); COMPLEMENT TOTAL (CH50) > 60 U/mL (>41)
== END 2023-11-10 18:20 | disposition home or self-care (01) | DRG 194 ==
LOC: EDBD 12:04 → M ED 12:04 → M ED INP 14:47 → M MS5PR 11-06 14:35
PROVIDERS: ADMIT General Practice; ATTEND General Practice
PROC: 0B9C8ZX Drainage of Right Upper Lung Lobe, Via Natural or Artificial Opening Endoscopic, Diagnostic (ICD-10-PCS; principal; 2023-11-06 16:00)
PROC: B246ZZZ Ultrasonography of Right and Left Heart (ICD-10-PCS; 2023-11-07)
DX: J18.9 Pneumonia, unspecified organism (principal); I50.32 Chronic diastolic (congestive) heart failure; N17.9 Acute kidney failure, unspecified; I25.10 Atherosclerotic heart disease of native coronary artery without angina pectoris; I44.7 Left bundle-branch block, unspecified; N40.1 Benign prostatic hyperplasia with lower urinary tract symptoms; E11.51 Type 2 diabetes mellitus with diabetic peripheral angiopathy without gangrene; E11.22 Type 2 diabetes mellitus with diabetic chronic kidney disease; N39.8 Other specified disorders of urinary system; R29.6 Repeated falls; R53.1 Weakness; I95.9 Hypotension, unspecified; N18.30 Chronic kidney disease, stage 3 unspecified; K59.09 Other constipation; K21.9 Gastro-esophageal reflux disease without esophagitis; Z89.422 Acquired absence of other left toe(s); Z98.49 Cataract extraction status, unspecified eye; Z95.5 Presence of coronary angioplasty implant and graft; Z90.49 Acquired absence of other specified parts of digestive tract; Z79.82 Long term (current) use of aspirin; Z79.899 Other long term (current) drug therapy

== ENCOUNTER 2023-11-13 10:14 | Inpatient (IN) | payer MEDICARE ==
[2023-11-13] VITALS (13 sets, daily range): BP systolic 86–153; BP diastolic 43–67; TEMP 97.9–98.8; O2SAT 93–98
[~2023-11-13] VITALS: Ht 175.3 cm; Wt 83.1 kg
[~2023-11-13 10:14] MED LIST changes: +BACI1CAP PO; +BRIM0.2S13 OU; +DOXY100T PO; +GABA-284 PO; +GOOD8.6T2 PO; +HUMU1INJ2 SC; +INSU100V19 SC; +LEVO750T14 PO; +TIMO0.5S39 OU
[2023-11-13 12:00] LABS: VENOUS BASE EXCESS 3.3 (-2.0-2.0); VENOUS HCO3 28.8 MMOL/L (23.0-27.0); VENOUS O2 SATURATION 89.2 % (60.0-80.0); VENOUS PARTIAL PRESSURE CO2 47.2 mmHg (38.0-50.0); VENOUS PARTIAL PRESSURE O2 54.4 mmHg (30.0-50.0); VENOUS PH 7.403 UNITS (7.330-7.430); VENOUS STANDARD HCO3 27.2 MMOL/L; VENOUS TOTAL CO2 30.2 MMOL/L (24.0-28.0)
[2023-11-13 12:02] LABS: BASO # 0.1 10^3/uL (0.0-0.2); BASO % 0.4 % (0.0-1.0); EOS # 0.4 10^3/uL (0.0-0.5); EOS % 2.1 % (0.0-3.0); HEMATOCRIT 38.3 % (42.0-52.0); HEMOGLOBIN 11.8 g/dl (13.5-17.5); LYMPH # 0.5 10^3/uL (1.5-5.0); LYMPH % 2.6 % (24.0-44.0); MEAN CORPUSCULAR HEMOGLOBIN 27.3 pg (27.0-33.0); MEAN CORPUSCULAR HGB CONC 30.8 g/dl (32.0-36.5); MEAN CORPUSCULAR VOLUME 88.5 fl (80.0-96.0); MONO # 0.8 10^3/uL (0.0-0.8); MONO % 4.4 % (2.0-8.0); NEUTROPHILS # 16.1 10^3/uL (1.5-8.5); NEUTROPHILS % 89.8 % (36.0-66.0); PLATELET COUNT, AUTOMATED 329 10^3/uL (150-450); RED BLOOD COUNT 4.33 10^6/uL (4.30-6.10); WHITE BLOOD COUNT 17.9 10^3/uL (4.0-10.0)
[2023-11-13 12:23] LABS: INR 1.21; PROTHROMBIN TIME 14.9 SECONDS (12.5-14.5)
[2023-11-13 12:33] LABS: ALBUMIN 2.2 G/DL (3.2-5.2); ALKALINE PHOSPHATASE 70 U/L (46-116); ALT/SGPT < 9 U/L (7.0-40); AST/SGOT 12 U/L (<34); BILIRUBIN,DIRECT 0.2 MG/DL (<0.4); BILIRUBIN,TOTAL 0.4 MG/DL (0.3-1.2); BLOOD UREA NITROGEN 23 MG/DL (9-23); CALCIUM LEVEL 8.8 MG/DL (8.3-10.6); CARBON DIOXIDE LEVEL 31 MMOL/L (20-31); CHLORIDE LEVEL 104 MMOL/L (98-107); CREATININE FOR GFR 1.48 MG/DL (0.70-1.30); GLOMERULAR FILTRATION RATE 48.4 (>35); GLUCOSE, FASTING 156 MG/DL (74-106); MAGNESIUM LEVEL 1.6 MG/DL (1.8-2.4); POTASSIUM SERUM 4.3 MMOL/L (3.5-5.1); SODIUM LEVEL 141 MMOL/L (136-145); TOTAL PROTEIN 5.6 G/DL (5.7-8.2)
[2023-11-13 12:35] LABS: THYROID STIMULATING HORMONE 0.841 uIU/ML (0.55-4.78)
[2023-11-13] MEDS ORDERED: ISOVUE-370 76% 100ML VIAL As Ordered ONE (13:07)
[2023-11-13] MEDS ORDERED: DOXYCYCLINE HYCLATE 100MG TABLET PO ONE (14:10)
[2023-11-13] MEDS ORDERED: PIPERACILLIN/TAZOBACTAM SOD 4.5 GM in D5W MINI-BAG PLUS 50 ML IV ONE (14:10)
[2023-11-13] MEDS ORDERED: MED REC IN PROGRESS XX SCH (14:20)
[2023-11-13] MEDS ORDERED: GLUCAGON INJ 1MG VIAL SC PRN (15:10)
[2023-11-13] MEDS ORDERED: GLUCOSE 4GM CHEW TABLET PO PRN (15:10)
[2023-11-13] MEDS ORDERED: DEXTROSE 50% 50ML SYRINGE IV PRN (15:10)
[2023-11-13] MEDS: guaiFENesin 200 MG TAB PO SCH ×3 (15:30→20:04)
[2023-11-13] MEDS: MAG SULF 1GM/100ML (MAG RUN) 100 ML IV SCH ×2 (16:13→17:20)
[2023-11-13 16:33] LABS: ERYTHROCYTE SEDIMENTATION RATE 56 mm/hr (0-20)
[2023-11-13 16:42] LABS: PROCALCITONIN 0.29 ng/ml
[2023-11-13] MEDS: INSULIN LISPRO (NovoLOG) PER UNIT SC SCH ×2 (17:20→20:05)
[2023-11-13] MEDS: LACTOBACILLUS ACIDOPHILUS CAP (BACID) PO SCH ×2 (17:20→20:04)
[2023-11-13] MEDS: NS 1,000 ML IV SCH (17:59)
[2023-11-13] MEDS ORDERED: SIMV20TA22 PO (18:26)
[2023-11-13] MEDS ORDERED: PANT40TA29 PO (18:26)
[2023-11-13] MEDS ORDERED: RA C PO (18:28)
[2023-11-13] MEDS ORDERED: NALO25TA PO (18:29)
[2023-11-13] MEDS ORDERED: TORS20TA2 PO (18:29)
[2023-11-13] MEDS ORDERED: DOCU100C16 PO (18:33)
[2023-11-13] MEDS ORDERED: FINA5TAB2 PO (18:33)
[2023-11-13] MEDS ORDERED: MORP15TA2 PO (18:33)
[2023-11-13] MEDS ORDERED: HOME MED LIST COMPLETE! XX SCH (18:35)
[2023-11-13] MEDS ORDERED: PILL CUTTER 1 EACH XX PRN (19:15)
[2023-11-13] MEDS: SIMVASTATIN 20 MG TAB PO SCH (20:04)
[2023-11-13] MEDS: GABAPENTIN 400MG CAP PO SCH (20:04)
[2023-11-13] MEDS: MORPHINE 30 MG TAB **MSIR PO SCH (20:05)
[2023-11-13] MEDS: SENOKOT S TAB PO SCH (20:05)
[2023-11-13] MEDS ORDERED: CEFEPIME HCL 2 GM in D5W MINI-BAG PLUS 50 ML IV SCH (21:00)
[2023-11-13] MEDS ORDERED: AZITHROMYCIN 250MG TABLET PO SCH (21:00)
[2023-11-13] MEDS: HEPARIN SOD (PORCINE) 5000UNITS/ML 1ML VIAL/SYRINGE SC SCH (21:21)
[2023-11-14] VITALS (32 sets, daily range): BP systolic 127–186; BP diastolic 63–77; TEMP 96.8–97.9; O2SAT 91–100
[2023-11-14 06:15] LABS: BASO # 0.1 10^3/uL (0.0-0.2); BASO % 0.4 % (0.0-1.0); EOS # 0.7 10^3/uL (0.0-0.5); EOS % 3.6 % (0.0-3.0); HEMATOCRIT 31.4 % (42.0-52.0); HEMOGLOBIN 9.9 g/dl (13.5-17.5); LYMPH # 1.6 10^3/uL (1.5-5.0); LYMPH % 8.5 % (24.0-44.0); MEAN CORPUSCULAR HEMOGLOBIN 27.7 pg (27.0-33.0); MEAN CORPUSCULAR HGB CONC 31.5 g/dl (32.0-36.5); MEAN CORPUSCULAR VOLUME 87.7 fl (80.0-96.0); MONO % 5.6 % (2.0-8.0); NEUTROPHILS # 14.8 10^3/uL (1.5-8.5); NEUTROPHILS % 81.2 % (36.0-66.0); PLATELET COUNT, AUTOMATED 307 10^3/uL (150-450); RED BLOOD COUNT 3.58 10^6/uL (4.30-6.10); WHITE BLOOD COUNT 18.3 10^3/uL (4.0-10.0)
[2023-11-14 06:43] LABS: CALCIUM LEVEL 8.2 MG/DL (8.3-10.6); CREATININE FOR GFR 1.43 MG/DL (0.70-1.30); GLOMERULAR FILTRATION RATE 50.4 (>35); MAGNESIUM LEVEL 2.2 MG/DL (1.8-2.4); POTASSIUM SERUM 4.4 MMOL/L (3.5-5.1)
[2023-11-14 08:11] LABS: C REACTIVE PROTEIN QUANTITATIV 11.9 MG/DL (<1.0)
[2023-11-14] MEDS: METOPROLOL SUCC *XL* 25MG TAB (TopROL *XL*) PO SCH (08:28)
[2023-11-14] MEDS: INSULIN LISPRO (NovoLOG) PER UNIT SC SCH ×4 (08:40→20:13)
[2023-11-14] MEDS: guaiFENesin 200 MG TAB PO SCH ×3 (08:40→20:14)
[2023-11-14] MEDS: MORPHINE 30 MG TAB **MSIR PO SCH ×2 (08:40→20:15)
[2023-11-14] MEDS: LACTOBACILLUS ACIDOPHILUS CAP (BACID) PO SCH ×4 (08:41→20:14)
[2023-11-14] MEDS: predniSONE 20 MG TAB PO SCH (08:41)
[2023-11-14] MEDS: ASPIRIN 81MG CHEW TABLET PO SCH (08:41)
[2023-11-14] MEDS: FINASTERIDE 5MG TAB PO SCH (08:41)
[2023-11-14] MEDS: SENOKOT S TAB PO SCH ×2 (08:41→20:14)
[2023-11-14] MEDS: PANTOPRAZOLE 40MG TAB (PROTONIX) PO SCH (08:41)
[2023-11-14] MEDS ORDERED: DOXYCYCLINE HYCLATE 100MG TABLET PO SCH (09:00)
[2023-11-14] MEDS: MOVANTIK 25 MG PO SCH (09:00)
[2023-11-14] MEDS ORDERED: PIPERACILLIN/TAZOBACTAM SOD 3.375 GM in D5W MINI-BAG PLUS 50 ML IV SCH (09:10)
[2023-11-14] MEDS: NS 1,000 ML IV SCH (10:23)
[2023-11-14] MEDS: HEPARIN SOD (PORCINE) 5000UNITS/ML 1ML VIAL/SYRINGE SC SCH ×2 (10:26→21:00)
[2023-11-14] MEDS: ACETAMINOPHEN TAB 650MG DOSE (2X325MG) PO PRN (10:26)
[2023-11-14] MEDS: CO-ENZYME Q10 50 MG CAP PO SCH ×2 (12:50→20:14)
[2023-11-14] MEDS: TIMOLOL MALEATE 0.5% OPHTH SOLN 5 ML OU SCH ×3 (13:00→20:15)
[2023-11-14] MEDS: BRIMONIDINE 0.1% OPHTH SOLN 5ML OU SCH ×3 (13:00→20:15)
[2023-11-14] MEDS: SIMVASTATIN 20 MG TAB PO SCH (20:15)
[2023-11-14] MEDS: GABAPENTIN 400MG CAP PO SCH (20:15)
[2023-11-14] MEDS ORDERED: LEVEMIR (INSULIN DETEMIR) 1 UNITS/0.01ML SC SCH (21:00)
[2023-11-14] MEDS: RAMELTEON 8 MG TAB (ROZEREM) PO PRN (23:49)
[2023-11-15] VITALS (33 sets, daily range): BP systolic 125–190; BP diastolic 50–92; TEMP 96.5–97.8; O2SAT 92–100
[2023-11-15 05:23] LABS: BASO % 0.1 % (0.0-1.0); HEMATOCRIT 31.7 % (42.0-52.0); HEMOGLOBIN 9.9 g/dl (13.5-17.5); LYMPH # 0.6 10^3/uL (1.5-5.0); LYMPH % 4.1 % (24.0-44.0); MEAN CORPUSCULAR HGB CONC 31.2 g/dl (32.0-36.5); MEAN CORPUSCULAR VOLUME 89.5 fl (80.0-96.0); MONO # 0.9 10^3/uL (0.0-0.8); MONO % 6.2 % (2.0-8.0); NEUTROPHILS # 12.7 10^3/uL (1.5-8.5); NEUTROPHILS % 88.8 % (36.0-66.0); PLATELET COUNT, AUTOMATED 304 10^3/uL (150-450); RED BLOOD COUNT 3.54 10^6/uL (4.30-6.10); WHITE BLOOD COUNT 14.3 10^3/uL (4.0-10.0)
[2023-11-15 05:49] LABS: CALCIUM LEVEL 8.6 MG/DL (8.3-10.6); CREATININE FOR GFR 1.25 MG/DL (0.70-1.30); GLOMERULAR FILTRATION RATE 58.9 (>35); MAGNESIUM LEVEL 2.4 MG/DL (1.8-2.4); POTASSIUM SERUM 4.5 MMOL/L (3.5-5.1)
[2023-11-15 06:01] LABS: PROCALCITONIN 0.89 ng/ml
[2023-11-15 07:29] LABS: C REACTIVE PROTEIN QUANTITATIV 12.3 MG/DL (<1.0)
[2023-11-15] MEDS ORDERED: hydrALAZINE 20MG/ML 1ML VIAL IV PRN (07:55)
[2023-11-15] MEDS: METOPROLOL SUCC *XL* 25MG TAB (TopROL *XL*) PO SCH (09:00)
[2023-11-15] MEDS: SENOKOT S TAB PO SCH ×2 (09:00→20:48)
[2023-11-15] MEDS: guaiFENesin 200 MG TAB PO SCH ×3 (09:09→20:47)
[2023-11-15] MEDS: CO-ENZYME Q10 50 MG CAP PO SCH ×2 (09:09→20:47)
[2023-11-15] MEDS: HEPARIN SOD (PORCINE) 5000UNITS/ML 1ML VIAL/SYRINGE SC SCH ×2 (09:09→21:29)
[2023-11-15] MEDS: ASPIRIN 81MG CHEW TABLET PO SCH (09:10)
[2023-11-15] MEDS: LACTOBACILLUS ACIDOPHILUS CAP (BACID) PO SCH ×4 (09:10→20:48)
[2023-11-15] MEDS: PANTOPRAZOLE 40MG TAB (PROTONIX) PO SCH (09:10)
[2023-11-15] MEDS: predniSONE 20 MG TAB PO SCH (09:10)
[2023-11-15] MEDS: FINASTERIDE 5MG TAB PO SCH (09:10)
[2023-11-15] MEDS: INSULIN LISPRO (NovoLOG) PER UNIT SC SCH ×4 (09:11→20:48)
[2023-11-15] MEDS: LEVEMIR (INSULIN DETEMIR) 1 UNITS/0.01ML SC SCH ×2 (09:11→20:49)
[2023-11-15] MEDS: TIMOLOL MALEATE 0.5% OPHTH SOLN 5 ML OU SCH ×2 (09:11→20:47)
[2023-11-15] MEDS: BRIMONIDINE 0.1% OPHTH SOLN 5ML OU SCH ×2 (09:12→20:47)
[2023-11-15] MEDS: MORPHINE 30 MG TAB **MSIR PO SCH ×2 (09:18→20:48)
[2023-11-15] MEDS: MOVANTIK 25 MG PO SCH (11:17)
[2023-11-15] MEDS: ACETAMINOPHEN TAB 650MG DOSE (2X325MG) PO PRN (13:33)
[2023-11-15] MEDS: amLODIPine 5 MG TAB PO SCH (16:11)
[2023-11-15] MEDS: GABAPENTIN 400MG CAP PO SCH (20:48)
[2023-11-15] MEDS: SIMVASTATIN 20 MG TAB PO SCH (20:48)
[2023-11-15] MEDS: RAMELTEON 8 MG TAB (ROZEREM) PO PRN (21:29)
[2023-11-16] VITALS (12 sets, daily range): BP systolic 120–172; BP diastolic 60–74; TEMP 97.2–97.9; O2SAT 90–100
[2023-11-16 05:00] LABS: BASO % 0.1 % (0.0-1.0); HEMATOCRIT 31.3 % (42.0-52.0); HEMOGLOBIN 9.6 g/dl (13.5-17.5); LYMPH # 0.6 10^3/uL (1.5-5.0); LYMPH % 4.4 % (24.0-44.0); MEAN CORPUSCULAR HEMOGLOBIN 27.3 pg (27.0-33.0); MEAN CORPUSCULAR HGB CONC 30.7 g/dl (32.0-36.5); MEAN CORPUSCULAR VOLUME 88.9 fl (80.0-96.0); MONO # 0.8 10^3/uL (0.0-0.8); MONO % 5.8 % (2.0-8.0); NEUTROPHILS # 12.4 10^3/uL (1.5-8.5); PLATELET COUNT, AUTOMATED 335 10^3/uL (150-450); RED BLOOD COUNT 3.52 10^6/uL (4.30-6.10); WHITE BLOOD COUNT 13.9 10^3/uL (4.0-10.0)
[2023-11-16 05:25] LABS: BLOOD UREA NITROGEN 33 MG/DL (9-23); CALCIUM LEVEL 8.6 MG/DL (8.3-10.6); CARBON DIOXIDE LEVEL 28 MMOL/L (20-31); CHLORIDE LEVEL 102 MMOL/L (98-107); CREATININE FOR GFR 1.15 MG/DL (0.70-1.30); GLOMERULAR FILTRATION RATE > 60.0 (>35); GLUCOSE, FASTING 221 MG/DL (74-106); MAGNESIUM LEVEL 2.4 MG/DL (1.8-2.4); POTASSIUM SERUM 4.5 MMOL/L (3.5-5.1); SODIUM LEVEL 135 MMOL/L (136-145)
[2023-11-16] MEDS: LEVEMIR (INSULIN DETEMIR) 1 UNITS/0.01ML SC SCH (08:22)
[2023-11-16] MEDS: BRIMONIDINE 0.1% OPHTH SOLN 5ML OU SCH (08:22)
[2023-11-16] MEDS: HEPARIN SOD (PORCINE) 5000UNITS/ML 1ML VIAL/SYRINGE SC SCH (08:22)
[2023-11-16] MEDS: TIMOLOL MALEATE 0.5% OPHTH SOLN 5 ML OU SCH (08:22)
[2023-11-16] MEDS: ASPIRIN 81MG CHEW TABLET PO SCH (08:23)
[2023-11-16] MEDS: guaiFENesin 200 MG TAB PO SCH ×2 (08:23→16:21)
[2023-11-16] MEDS: CO-ENZYME Q10 50 MG CAP PO SCH (08:23)
[2023-11-16] MEDS: MORPHINE 30 MG TAB **MSIR PO SCH (08:23)
[2023-11-16] MEDS: amLODIPine 5 MG TAB PO SCH (08:24)
[2023-11-16] MEDS: PANTOPRAZOLE 40MG TAB (PROTONIX) PO SCH (08:24)
[2023-11-16] MEDS: SENOKOT S TAB PO SCH (08:24)
[2023-11-16] MEDS: predniSONE 20 MG TAB PO SCH (08:24)
[2023-11-16] MEDS: LACTOBACILLUS ACIDOPHILUS CAP (BACID) PO SCH ×2 (08:24→12:30)
[2023-11-16] MEDS: FINASTERIDE 5MG TAB PO SCH (08:24)
[2023-11-16] MEDS: MOVANTIK 25 MG PO SCH (08:25)
[2023-11-16] MEDS: METOPROLOL SUCC *XL* 25MG TAB (TopROL *XL*) PO SCH (08:30)
[2023-11-16] MEDS: INSULIN LISPRO (NovoLOG) PER UNIT SC SCH ×2 (10:47→12:52)
[2023-11-16] MEDS ORDERED: AMLO1TAB24 PO (11:52)
[2023-11-16] MEDS ORDERED: INSU100I48 SQ (14:51)
[2023-11-16] MEDS ORDERED: PRED20TA PO (14:51)
[2023-11-16] MEDS ORDERED: BACT800T5 PO (14:51)
== END 2023-11-16 18:00 | disposition home health service (06) | DRG 196 ==
LOC: M ED 10:14 → M ED INP 14:54 → ENRESERV 15:58 → M PCU 16:25
PROVIDERS: ADMIT Internal Medicine; ATTEND Internal Medicine
DX: J84.89 Other specified interstitial pulmonary diseases (principal); J96.21 Acute and chronic respiratory failure with hypoxia; I50.32 Chronic diastolic (congestive) heart failure; I13.0 Hypertensive heart and chronic kidney disease with heart failure and stage 1 through stage 4 chronic kidney disease, or unspecified chronic kidney disease; I25.10 Atherosclerotic heart disease of native coronary artery without angina pectoris; E11.22 Type 2 diabetes mellitus with diabetic chronic kidney disease; N40.1 Benign prostatic hyperplasia with lower urinary tract symptoms; E11.40 Type 2 diabetes mellitus with diabetic neuropathy, unspecified; K21.9 Gastro-esophageal reflux disease without esophagitis; E11.51 Type 2 diabetes mellitus with diabetic peripheral angiopathy without gangrene; N18.30 Chronic kidney disease, stage 3 unspecified; K59.09 Other constipation; G31.84 Mild cognitive impairment of uncertain or unknown etiology; E78.5 Hyperlipidemia, unspecified; I44.7 Left bundle-branch block, unspecified; I95.1 Orthostatic hypotension; E83.42 Hypomagnesemia; E11.65 Type 2 diabetes mellitus with hyperglycemia; R53.1 Weakness; R00.1 Bradycardia, unspecified; Z99.81 Dependence on supplemental oxygen; Z95.5 Presence of coronary angioplasty implant and graft; Z89.422 Acquired absence of other left toe(s); Z98.49 Cataract extraction status, unspecified eye; Z90.49 Acquired absence of other specified parts of digestive tract; Z79.82 Long term (current) use of aspirin; Z79.4 Long term (current) use of insulin; Z79.899 Other long term (current) drug therapy

== ENCOUNTER 2023-11-26 16:55 | Inpatient (IN) | payer MEDICARE ==
[~2023-11-26] VITALS: Ht 175.3 cm; Wt 84.8 kg
[~2023-11-26 16:55] MED LIST changes: +AMLO1TAB24 PO; +BACT800T5 PO; +DOCU100C16 PO; +FINA5TAB2 PO; +INSU100I48 SQ; +MORP15TA2 PO; +NALO25TA PO; +PANT40TA29 PO; +PRED20TA PO; +RA C PO; +SIMV20TA22 PO
[2023-11-26] MEDS ORDERED: RA M500C PO (17:17)
[2023-11-26] MEDS ORDERED: FLOM0.4C39 PO (17:17)
[2023-11-26] MEDS ORDERED: DULC5TAB PO (17:17)
[2023-11-26] MEDS ORDERED: NOXI1TAB PO (17:17)
[2023-11-26] MEDS ORDERED: PRED20TA PO ×2 (17:17→22:38)
[2023-11-26 17:54] LABS: BASO % 0.2 % (0.0-1.0); EOS # 0.1 10^3/uL (0.0-0.5); EOS % 0.3 % (0.0-3.0); HEMOGLOBIN 11.5 g/dl (13.5-17.5); LYMPH # 0.8 10^3/uL (1.5-5.0); MEAN CORPUSCULAR HEMOGLOBIN 28.4 pg (27.0-33.0); MEAN CORPUSCULAR HGB CONC 31.1 g/dl (32.0-36.5); MEAN CORPUSCULAR VOLUME 91.4 fl (80.0-96.0); MONO # 1.5 10^3/uL (0.0-0.8); MONO % 5.9 % (2.0-8.0); NEUTROPHILS # 22.3 10^3/uL (1.5-8.5); NEUTROPHILS % 89.2 % (36.0-66.0); PLATELET COUNT, AUTOMATED 358 10^3/uL (150-450); RED BLOOD COUNT 4.05 10^6/uL (4.30-6.10)
[2023-11-26 18:18] LABS: LIPASE 17 U/L (12-53)
[2023-11-26 18:22] LABS: THYROID STIMULATING HORMONE 2.036 uIU/ML (0.55-4.78)
[2023-11-26 18:29] LABS: RSV AMPLIFICATION NEGATIVE (NEGATIVE)
[2023-11-26 18:36] LABS: ALBUMIN 2.3 G/DL (3.2-5.2); ALKALINE PHOSPHATASE 90 U/L (46-116); ALT/SGPT 81 U/L (7.0-40); AST/SGOT 44 U/L (<34); BILIRUBIN,DIRECT 0.2 MG/DL (<0.4); BILIRUBIN,TOTAL 0.3 MG/DL (0.3-1.2); BLOOD UREA NITROGEN 31 MG/DL (9-23); CALCIUM LEVEL 7.9 MG/DL (8.3-10.6); CARBON DIOXIDE LEVEL 29 MMOL/L (20-31); CHLORIDE LEVEL 105 MMOL/L (98-107); CREATININE FOR GFR 1.05 MG/DL (0.70-1.30); GLOMERULAR FILTRATION RATE > 60.0 (>35); GLUCOSE, FASTING 148 MG/DL (74-106); MAGNESIUM LEVEL 2.5 MG/DL (1.8-2.4); POTASSIUM SERUM 6.2 MMOL/L (3.5-5.1); SODIUM LEVEL 135 MMOL/L (136-145); TOTAL PROTEIN 5.6 G/DL (5.7-8.2)
[2023-11-26] MEDS ORDERED: VANCOMYCIN HCL IV ONE (19:05)
[2023-11-26] MEDS ORDERED: FLUID PLACE HOLDER IV ONE (19:05)
[2023-11-26] MEDS: DEXTROSE 50% 50ML SYRINGE IV ONE (19:39)
[2023-11-26] MEDS: CALCIUM CHLORIDE 10% 1 GM/10 ML SYR IV ONE (19:39)
[2023-11-26] MEDS: PATIROMER SORBITEX CALCIUM 8.4 GM POWDER PACKET (VELTASSA) PO ONE (19:39)
[2023-11-26] MEDS: HumuLIN R (REGULAR) INSULIN (NovoLIN R) **100U/ML** PER UNIT IV ONE (19:40)
[2023-11-26] MEDS: cefTRIAXone SOD 2 GM in D5W MINI-BAG PLUS 50 ML IV ONE (19:40)
[2023-11-26] MEDS: FUROSEMIDE 40MG/4ML VIAL IV ONE ×2 (19:41→23:09)
[2023-11-26] MEDS: VANCOMYCIN HCL 1,000 MG, VIAL MATE ADAPTER 1 EACH in D5W 250 ML IV ONE ×2 (19:57→20:59)
[2023-11-26 19:59] LABS: CK-MB VALUE MASS 1.2 NG/ML (<3.6)
[2023-11-26 20:09] LABS: PROCALCITONIN 0.14 ng/ml
[2023-11-26 20:16] LABS: CPK CREATINE PHOSPHOKINASE 26 U/L (46-171); MB/CK RELATIVE INDEX 4.61 (< OR =4)
[2023-11-26] MEDS: DOCUSATE SODIUM 100MG CAPSULE PO SCH (21:00)
[2023-11-26 21:11] LABS: CK-MB VALUE MASS 1.2 NG/ML (<3.6)
[2023-11-26 21:13] LABS: CPK CREATINE PHOSPHOKINASE 25 U/L (46-171)
[2023-11-26] MEDS: NITROGLYCERIN 0.4MG SUBL TABLET SL STA (21:20)
[2023-11-26] MEDS ORDERED: MORP15TA2 PO ×2 (22:34)
[2023-11-26] MEDS ORDERED: GLUCOSE 4GM CHEW TABLET PO PRN (22:35)
[2023-11-26] MEDS ORDERED: DEXTROSE 50% 50ML SYRINGE IV PRN (22:35)
[2023-11-26] MEDS ORDERED: GLUCAGON INJ 1MG VIAL SC PRN (22:35)
[2023-11-26] MEDS ORDERED: HOME MED LIST COMPLETE! XX SCH (22:45)
[2023-11-26] MEDS ORDERED: ISOVUE-370 76% 100ML VIAL As Ordered ONE (23:10)
[2023-11-26] MEDS ORDERED: PILL CUTTER 1 EACH XX PRN (23:35)
[2023-11-26 23:44] LABS: BLOOD UREA NITROGEN 30 MG/DL (9-23); CALCIUM LEVEL 8.4 MG/DL (8.3-10.6); CARBON DIOXIDE LEVEL 29 MMOL/L (20-31); CHLORIDE LEVEL 105 MMOL/L (98-107); CREATININE FOR GFR 1.05 MG/DL (0.70-1.30); GLOMERULAR FILTRATION RATE > 60.0 (>35); GLUCOSE, FASTING 65 MG/DL (74-106); POTASSIUM SERUM 5.7 MMOL/L (3.5-5.1); SODIUM LEVEL 136 MMOL/L (136-145)
[2023-11-27] VITALS (19 sets, daily range): BP systolic 141–188; BP diastolic 63–78; TEMP 97.4–97.9; O2SAT 88–97
[2023-11-27] MEDS: AZITHROMYCIN 250MG TABLET PO ONE (00:01)
[2023-11-27] MEDS: ALBUTEROL SULFATE 2.5MG/0.5ML INH NEB SOLN NEB ONE ×2 (00:03→09:25)
[2023-11-27] MEDS: MORPHINE 30 MG TAB **MSIR PO SCH (00:13)
[2023-11-27] MEDS: SENOKOT S TAB PO SCH ×2 (00:37→21:24)
[2023-11-27] MEDS: GABAPENTIN 400MG CAP PO SCH (00:37)
[2023-11-27] MEDS: SIMVASTATIN 20 MG TAB PO SCH (00:38)
[2023-11-27] MEDS: ACETAMINOPHEN TAB 650MG DOSE (2X325MG) PO ONE (01:51)
[2023-11-27] MEDS: amLODIPine 5 MG TAB PO ONE (01:52)
[2023-11-27] MEDS: hydrALAZINE 20MG/ML 1ML VIAL IV PRN (01:52)
[2023-11-27] MEDS: GABAPENTIN 300 MG CAP PO ONE (04:26)
[2023-11-27 07:07] LABS: HEMATOCRIT 38.7 % (42.0-52.0); HEMOGLOBIN 12.2 g/dl (13.5-17.5); MEAN CORPUSCULAR HEMOGLOBIN 28.4 pg (27.0-33.0); MEAN CORPUSCULAR HGB CONC 31.5 g/dl (32.0-36.5); PLATELET COUNT, AUTOMATED 340 10^3/uL (150-450); WHITE BLOOD COUNT 28.9 10^3/uL (4.0-10.0)
[2023-11-27 07:36] LABS: BLOOD UREA NITROGEN 32 MG/DL (9-23); CALCIUM LEVEL 8.2 MG/DL (8.3-10.6); CARBON DIOXIDE LEVEL 30 MMOL/L (20-31); CHLORIDE LEVEL 102 MMOL/L (98-107); CREATININE FOR GFR 1.18 MG/DL (0.70-1.30); GLOMERULAR FILTRATION RATE > 60.0 (>35); GLUCOSE, FASTING 119 MG/DL (74-106); MAGNESIUM LEVEL 2.2 MG/DL (1.8-2.4); POTASSIUM SERUM 6.1 MMOL/L (3.5-5.1); SODIUM LEVEL 136 MMOL/L (136-145)
[2023-11-27] MEDS: INSULIN LISPRO (NovoLOG) PER UNIT SC SCH ×3 (07:45→21:00)
[2023-11-27] MEDS: TIMOLOL MALEATE 0.5% OPHTH SOLN 5 ML OU SCH (08:31)
[2023-11-27] MEDS: FUROSEMIDE 40MG/4ML VIAL IV SCH ×2 (08:31→15:34)
[2023-11-27] MEDS: ENOXAPARIN 40MG/0.4ML SYRINGE (J1650 PER 10MG) SC SCH (08:31)
[2023-11-27] MEDS: ASPIRIN 81MG CHEW TABLET PO SCH (08:32)
[2023-11-27] MEDS: predniSONE 20 MG TAB PO SCH (08:32)
[2023-11-27] MEDS: BISACODYL 5MG TAB PO SCH (08:33)
[2023-11-27] MEDS: FINASTERIDE 5MG TAB PO SCH (08:33)
[2023-11-27] MEDS: amLODIPine 5 MG TAB PO SCH (08:33)
[2023-11-27] MEDS: PANTOPRAZOLE 40MG TAB (PROTONIX) PO SCH (08:33)
[2023-11-27] MEDS ORDERED: BACTRIM 160MG/800MG DS TAB PO SCH (09:00)
[2023-11-27] MEDS: CALCIUM GLUCONATE 1,000 MG in D5W MINI-BAG PLUS 100 ML IV ONE (09:12)
[2023-11-27] MEDS: HumuLIN R (REGULAR) INSULIN (NovoLIN R) **100U/ML** PER UNIT IV STA (09:12)
[2023-11-27] MEDS: DEXTROSE 50% 50ML SYRINGE IV STA (09:13)
[2023-11-27] MEDS: KETOROLAC 30 MG/ML 1ML VIAL IV ONE (13:02)
[2023-11-27] MEDS: GABAPENTIN 300 MG CAP PO SCH (15:34)
[2023-11-27] MEDS: ALPRAZolam 0.5 MG TAB PO ONE (15:34)
[2023-11-27] MEDS: PATIROMER SORBITEX CALCIUM 8.4 GM POWDER PACKET (VELTASSA) PO ONE (17:26)
[2023-11-27] MEDS ORDERED: LEVEMIR (INSULIN DETEMIR) 1 UNITS/0.01ML SC SCH (21:00)
[2023-11-27] MEDS ORDERED: INSULIN LISPRO (NovoLOG) PER UNIT SC SCH (21:00)
[2023-11-27] MEDS: QUEtiapine FUMARATE 25 MG TAB PO SCH (21:24)
[2023-11-27] MEDS: LEVEMIR (INSULIN DETEMIR) 1 UNITS/0.01ML SC SCH (21:25)
[2023-11-27] MEDS: MORPHINE 30 MG TAB **MSIR PO PRN ×2 (23:42)
[2023-11-28] VITALS (16 sets, daily range): BP systolic 141–190; BP diastolic 62–74; TEMP 96.8–97.9; O2SAT 89–98
[2023-11-28 05:41] LABS: BASO % 0.1 % (0.0-1.0); EOS # 0.1 10^3/uL (0.0-0.5); EOS % 0.3 % (0.0-3.0); HEMATOCRIT 33.6 % (42.0-52.0); HEMOGLOBIN 10.7 g/dl (13.5-17.5); LYMPH # 0.8 10^3/uL (1.5-5.0); MEAN CORPUSCULAR HEMOGLOBIN 28.2 pg (27.0-33.0); MEAN CORPUSCULAR HGB CONC 31.8 g/dl (32.0-36.5); MEAN CORPUSCULAR VOLUME 88.4 fl (80.0-96.0); MONO % 6.8 % (2.0-8.0); NEUTROPHILS # 13.3 10^3/uL (1.5-8.5); NEUTROPHILS % 86.8 % (36.0-66.0); PLATELET COUNT, AUTOMATED 274 10^3/uL (150-450); WHITE BLOOD COUNT 15.3 10^3/uL (4.0-10.0)
[2023-11-28 06:02] LABS: CALCIUM LEVEL 8.1 MG/DL (8.3-10.6); CREATININE FOR GFR 1.35 MG/DL (0.70-1.30); GLOMERULAR FILTRATION RATE 53.9 (>35); POTASSIUM SERUM 5.5 MMOL/L (3.5-5.1)
[2023-11-28 07:25] LABS: ERYTHROCYTE SEDIMENTATION RATE 36 mm/hr (0-20)
[2023-11-28] MEDS: TORSEMIDE 20 MG TAB PO SCH (08:10)
[2023-11-28] MEDS: LEVEMIR (INSULIN DETEMIR) 1 UNITS/0.01ML SC SCH ×2 (08:12→20:36)
[2023-11-28] MEDS: UNRESOLVED PATIENT OWN MED ORDER XX SCH (09:56)
[2023-11-28] MEDS: PATIROMER SORBITEX CALCIUM 8.4 GM POWDER PACKET (VELTASSA) PO SCH (12:42)
[2023-11-28] MEDS: INSULIN LISPRO (NovoLOG) PER UNIT SC SCH (18:06)
[2023-11-28] MEDS: MOVANTIK 25MG PO SCH (18:19)
[2023-11-28] MEDS: MORPHINE 30 MG TAB **MSIR PO PRN (20:38)
[2023-11-28] MEDS: ALPRAZolam 0.5 MG TAB PO PRN (21:50)
[2023-11-29] VITALS: O2SAT 98
[2023-11-29] MEDS: hydrALAZINE 20MG/ML 1ML VIAL IV PRN
[2023-11-29 04:16] VITALS: BP 174/62; TEMP 97.4; O2SAT 95
[2023-11-29] MEDS: hydrALAZINE 20MG/ML 1ML VIAL IV ONE (05:07)
[2023-11-29 07:19] LABS: BASO % 0.1 % (0.0-1.0); EOS # 0.1 10^3/uL (0.0-0.5); EOS % 0.9 % (0.0-3.0); HEMATOCRIT 33.9 % (42.0-52.0); HEMOGLOBIN 10.8 g/dl (13.5-17.5); LYMPH # 1.3 10^3/uL (1.5-5.0); LYMPH % 10.4 % (24.0-44.0); MEAN CORPUSCULAR HGB CONC 31.9 g/dl (32.0-36.5); MEAN CORPUSCULAR VOLUME 87.8 fl (80.0-96.0); MONO # 1.1 10^3/uL (0.0-0.8); MONO % 8.4 % (2.0-8.0); NEUTROPHILS % 79.4 % (36.0-66.0); PLATELET COUNT, AUTOMATED 295 10^3/uL (150-450); RED BLOOD COUNT 3.86 10^6/uL (4.30-6.10); WHITE BLOOD COUNT 12.6 10^3/uL (4.0-10.0)
[2023-11-29 07:27] VITALS: BP 145/64; TEMP 98; O2SAT 91
[2023-11-29] MEDS: INSULIN LISPRO (NovoLOG) PER UNIT SC SCH (07:30)
[2023-11-29 07:36] LABS: CALCIUM LEVEL 8.4 MG/DL (8.3-10.6); CREATININE FOR GFR 1.29 MG/DL (0.70-1.30); GLOMERULAR FILTRATION RATE 56.8 (>35); POTASSIUM SERUM 4.5 MMOL/L (3.5-5.1)
[2023-11-29] MEDS: BRIMONIDINE 0.15% OPHTH SOLN 5 ML OU SCH (09:16)
[2023-11-29] MEDS: LEVEMIR (INSULIN DETEMIR) 1 UNITS/0.01ML SC SCH (09:17)
[2023-11-29 11:41] VITALS: BP 159/73; TEMP 97.2; O2SAT 90
[2023-11-29] MEDS ORDERED: AMLO1TAB24 PO (12:02)
[2023-11-29] MEDS ORDERED: TORS20TA2 PO (12:02)
[2023-11-29] MEDS ORDERED: XANA0.25 PO (12:08)
[2023-11-29 13:12] VITALS: BP 140/68
[2023-11-29] MEDS: **hydrALAZINE HCL** 25 MG TAB PO SCH (13:12)
== END 2023-11-29 15:09 | disposition home or self-care (01) | DRG 291 ==
LOC: M ED 16:55 → M ED INP 22:35 → M PCU 11-27 01:27
PROVIDERS: ADMIT Internal Medicine; ATTEND Internal Medicine Nephrology
DX: I13.0 Hypertensive heart and chronic kidney disease with heart failure and stage 1 through stage 4 chronic kidney disease, or unspecified chronic kidney disease (principal); J96.21 Acute and chronic respiratory failure with hypoxia; I50.33 Acute on chronic diastolic (congestive) heart failure; J82.81 Chronic eosinophilic pneumonia; J84.116 Cryptogenic organizing pneumonia; J84.113 Idiopathic non-specific interstitial pneumonitis; E87.5 Hyperkalemia; I25.10 Atherosclerotic heart disease of native coronary artery without angina pectoris; I44.7 Left bundle-branch block, unspecified; I16.0 Hypertensive urgency; E78.5 Hyperlipidemia, unspecified; E11.51 Type 2 diabetes mellitus with diabetic peripheral angiopathy without gangrene; N40.1 Benign prostatic hyperplasia with lower urinary tract symptoms; G89.29 Other chronic pain; N18.30 Chronic kidney disease, stage 3 unspecified; I95.1 Orthostatic hypotension; E11.22 Type 2 diabetes mellitus with diabetic chronic kidney disease; M54.9 Dorsalgia, unspecified; E11.40 Type 2 diabetes mellitus with diabetic neuropathy, unspecified; G31.84 Mild cognitive impairment of uncertain or unknown etiology; E11.65 Type 2 diabetes mellitus with hyperglycemia; K21.9 Gastro-esophageal reflux disease without esophagitis; K59.09 Other constipation; E83.41 Hypermagnesemia; Z95.5 Presence of coronary angioplasty implant and graft; Z79.4 Long term (current) use of insulin; Z79.82 Long term (current) use of aspirin; Z79.891 Long term (current) use of opiate analgesic; Z79.52 Long term (current) use of systemic steroids; Z79.899 Other long term (current) drug therapy; Z99.81 Dependence on supplemental oxygen; Z89.422 Acquired absence of other left toe(s); Z87.891 Personal history of nicotine dependence

== ENCOUNTER → 2023-12-01 | Outpatient (CLI) | payer MEDICARE ==
[~2023-12-01] MED LIST changes: +DULC5TAB PO; +NOXI1TAB PO; +RA M500C PO; +XANA0.25 PO
== END ==
LOC: M RAD 12:37
PROVIDERS: ATTEND Internal Medicine Cardiovascular Disease
DX: J18.9 Pneumonia, unspecified organism (principal)

== ENCOUNTER → 2023-12-14 | Outpatient (CLI) | payer MEDICARE ==
[~2023-12-14] MED LIST changes: +ASPI-615 PO; +ATOV5SUS PO; +CHOL62.52 PO; +INSUDET SC; +MAGN500T12 PO; +RISATAB3 PO
[2023-12-14 12:57] LABS: BASO % 0.3 % (0.0-1.0); EOS # 0.2 10^3/uL (0.0-0.5); EOS % 0.9 % (0.0-3.0); HEMATOCRIT 38.3 % (42.0-52.0); HEMOGLOBIN 11.5 g/dl (13.5-17.5); LYMPH # 0.4 10^3/uL (1.5-5.0); LYMPH % 2.3 % (24.0-44.0); MEAN CORPUSCULAR HEMOGLOBIN 28.5 pg (27.0-33.0); MEAN CORPUSCULAR VOLUME 94.8 fl (80.0-96.0); MONO # 0.7 10^3/uL (0.0-0.8); MONO % 4.5 % (2.0-8.0); NEUTROPHILS # 14.2 10^3/uL (1.5-8.5); NEUTROPHILS % 89.7 % (36.0-66.0); PLATELET COUNT, AUTOMATED 282 10^3/uL (150-450); RED BLOOD COUNT 4.04 10^6/uL (4.30-6.10); WHITE BLOOD COUNT 15.8 10^3/uL (4.0-10.0)
== END ==
LOC: M WUC 10:52
PROVIDERS: ATTEND Physician Assistant
DX: D64.9 Anemia, unspecified (principal)

== ENCOUNTER → 2023-12-14 | Outpatient (CLI) | payer MEDICARE ==
[2023-12-14 13:40] LABS: CALCIUM LEVEL 7.7 MG/DL (8.3-10.6); CREATININE FOR GFR 1.31 MG/DL (0.70-1.30); GLOMERULAR FILTRATION RATE 55.8 (>35); POTASSIUM SERUM 4.5 MMOL/L (3.5-5.1)
== END ==
LOC: M WUC 10:54
PROVIDERS: ATTEND Internal Medicine Cardiovascular Disease
DX: I50.23 Acute on chronic systolic (congestive) heart failure (principal)

== ENCOUNTER 2023-12-15 16:28 | Emergency (ER) | payer MEDICARE ==
[~2023-12-15] VITALS: Ht 175.3 cm; Wt 84.0 kg
[~2023-12-15 16:28] MED LIST changes: -ASPI-615 PO; -ATOV5SUS PO; -CHOL62.52 PO; -INSUDET SC; -MAGN500T12 PO; -RISATAB3 PO
[2023-12-15 17:46] LABS: RSV AMPLIFICATION NEGATIVE (NEGATIVE)
[2023-12-15 20:19] LABS: BASO % 0.2 % (0.0-1.0); EOS # 0.1 10^3/uL (0.0-0.5); EOS % 0.6 % (0.0-3.0); HEMATOCRIT 38.4 % (42.0-52.0); LYMPH # 0.3 10^3/uL (1.5-5.0); LYMPH % 2.3 % (24.0-44.0); MEAN CORPUSCULAR HEMOGLOBIN 29.3 pg (27.0-33.0); MEAN CORPUSCULAR HGB CONC 31.3 g/dl (32.0-36.5); MEAN CORPUSCULAR VOLUME 93.9 fl (80.0-96.0); MONO # 0.5 10^3/uL (0.0-0.8); MONO % 3.7 % (2.0-8.0); NEUTROPHILS % 89.5 % (36.0-66.0); PLATELET COUNT, AUTOMATED 255 10^3/uL (150-450); RED BLOOD COUNT 4.09 10^6/uL (4.30-6.10); WHITE BLOOD COUNT 13.4 10^3/uL (4.0-10.0)
[2023-12-15 20:52] LABS: ALBUMIN 2.3 G/DL (3.2-5.2); ALKALINE PHOSPHATASE 87 U/L (46-116); ALT/SGPT 44 U/L (7.0-40); AST/SGOT 27 U/L (<34); BILIRUBIN,DIRECT < 0.1 MG/DL (<0.4); BILIRUBIN,TOTAL 0.2 MG/DL (0.3-1.2); BLOOD UREA NITROGEN 41 MG/DL (9-23); CALCIUM LEVEL 7.6 MG/DL (8.3-10.6); CARBON DIOXIDE LEVEL 34 MMOL/L (20-31); CHLORIDE LEVEL 106 MMOL/L (98-107); CREATININE FOR GFR 1.12 MG/DL (0.70-1.30); GLOMERULAR FILTRATION RATE > 60.0 (>35); GLUCOSE, FASTING 124 MG/DL (74-106); POTASSIUM SERUM 4.7 MMOL/L (3.5-5.1); SODIUM LEVEL 142 MMOL/L (136-145); TOTAL PROTEIN 5.5 G/DL (5.7-8.2)
[2023-12-15 21:17] LABS: INR 0.99; PROTHROMBIN TIME 12.8 SECONDS (12.5-14.5)
[2023-12-15] MEDS: FUROSEMIDE 40MG/4ML VIAL IV ONE (21:24)
[2023-12-15 21:30] LABS: CK-MB VALUE MASS 1.5 NG/ML (<3.6)
[2023-12-15 21:34] LABS: FREE T4 0.88 NG/DL (0.89-1.76); THYROID STIMULATING HORMONE 0.444 uIU/ML (0.55-4.78)
[2023-12-15 21:40] LABS: MB/CK RELATIVE INDEX 5.17 (< OR =4)
[2023-12-15 22:25] LABS: CK-MB VALUE MASS 1.8 NG/ML (<3.6)
[2023-12-15 22:29] LABS: MB/CK RELATIVE INDEX 5.8 (< OR =4)
[2023-12-15] MEDS ORDERED: ISOVUE-370 76% 100ML VIAL As Ordered ONE (23:29)
[2023-12-15] MEDS ORDERED: ATOV5SUS PO (23:33)
[2023-12-15] MEDS ORDERED: MAGN500T12 PO (23:33)
[2023-12-15] MEDS ORDERED: ASPI-615 PO (23:33)
[2023-12-15] MEDS ORDERED: RISATAB3 PO (23:33)
[2023-12-15] MEDS ORDERED: AMLO1TAB24 PO ×2 (23:33)
[2023-12-15] MEDS ORDERED: INSUDET SC (23:33)
[2023-12-15] MEDS ORDERED: CHOL62.52 PO (23:33)
[2023-12-15] MEDS ORDERED: TORS20TA2 PO (23:33)
[2023-12-15] MEDS ORDERED: HOME MED LIST COMPLETE! XX SCH (23:35)
[2023-12-16 00:15] LABS: CK-MB VALUE MASS 1.5 NG/ML (<3.6)
[2023-12-16 00:19] LABS: MB/CK RELATIVE INDEX 4.16 (< OR =4)
[2023-12-16 01:50] VITALS: BP 146/68; TEMP 98; O2SAT 95
== END 2023-12-16 01:52 | disposition home or self-care (01) ==
LOC: M ED 16:28
DX: J84.111 Idiopathic interstitial pneumonia, not otherwise specified (principal); E11.9 Type 2 diabetes mellitus without complications; I11.0 Hypertensive heart disease with heart failure; I50.22 Chronic systolic (congestive) heart failure; I44.7 Left bundle-branch block, unspecified; Z79.899 Other long term (current) drug therapy; Z79.4 Long term (current) use of insulin; Z79.52 Long term (current) use of systemic steroids
CPT/HCPCS: 71046; 71275; 80048; 80076; 82550; 82553; 83605; 83690; 83880; 84439; 84443; 84484; 85025; 85610; 85730; 87486; 87581; 87631; 87633; 87798; 93005; 96374; 99284; J1940; Q9967

== ENCOUNTER 2023-12-20 17:43 | Emergency (ER) | payer MEDICARE ==
[~2023-12-20] VITALS: Ht 175.3 cm; Wt 83.0 kg
[~2023-12-20 17:43] MED LIST changes: +ASPI-615 PO; +ATOV5SUS PO; +CHOL62.52 PO; +INSUDET SC; +MAGN500T12 PO; +RISATAB3 PO
[2023-12-20 18:47] LABS: BASO % 0.2 % (0.0-1.0); EOS # 0.1 10^3/uL (0.0-0.5); EOS % 0.6 % (0.0-3.0); HEMATOCRIT 40.4 % (42.0-52.0); HEMOGLOBIN 12.7 g/dl (13.5-17.5); LYMPH # 0.5 10^3/uL (1.5-5.0); LYMPH % 3.6 % (24.0-44.0); MEAN CORPUSCULAR HEMOGLOBIN 29.1 pg (27.0-33.0); MEAN CORPUSCULAR HGB CONC 31.4 g/dl (32.0-36.5); MEAN CORPUSCULAR VOLUME 92.7 fl (80.0-96.0); MONO # 0.3 10^3/uL (0.0-0.8); MONO % 1.8 % (2.0-8.0); NEUTROPHILS # 12.7 10^3/uL (1.5-8.5); NEUTROPHILS % 91.3 % (36.0-66.0); PLATELET COUNT, AUTOMATED 258 10^3/uL (150-450); RED BLOOD COUNT 4.36 10^6/uL (4.30-6.10); WHITE BLOOD COUNT 13.9 10^3/uL (4.0-10.0)
[2023-12-20 18:56] LABS: ALBUMIN 2.2 G/DL (3.2-5.2); ALKALINE PHOSPHATASE 104 U/L (46-116); ALT/SGPT 33 U/L (7.0-40); AST/SGOT 18 U/L (<34); BILIRUBIN,DIRECT 0.1 MG/DL (<0.4); BILIRUBIN,TOTAL 0.4 MG/DL (0.3-1.2); BLOOD UREA NITROGEN 40 MG/DL (9-23); CALCIUM LEVEL 7.5 MG/DL (8.3-10.6); CARBON DIOXIDE LEVEL 35 MMOL/L (20-31); CHLORIDE LEVEL 99 MMOL/L (98-107); CREATININE FOR GFR 1.12 MG/DL (0.70-1.30); GLOMERULAR FILTRATION RATE > 60.0 (>35); GLUCOSE, FASTING 322 MG/DL (74-106); POTASSIUM SERUM 4.4 MMOL/L (3.5-5.1); SODIUM LEVEL 138 MMOL/L (136-145); TOTAL PROTEIN 5.8 G/DL (5.7-8.2)
[2023-12-20 19:04] LABS: RSV AMPLIFICATION NEGATIVE (NEGATIVE)
[2023-12-20] MEDS: FUROSEMIDE 40MG/4ML VIAL IV ONE (19:45)
[2023-12-20 19:58] LABS: CK-MB VALUE MASS 2.2 NG/ML (<3.6)
[2023-12-20 20:07] LABS: PROCALCITONIN 0.15 ng/ml
[2023-12-20 20:11] LABS: CPK CREATINE PHOSPHOKINASE 26 U/L (46-171); MB/CK RELATIVE INDEX 8.46 (< OR =4)
[2023-12-20 20:59] LABS: CK-MB VALUE MASS 2.3 NG/ML (<3.6)
[2023-12-20 21:01] LABS: MB/CK RELATIVE INDEX 8.21 (< OR =4)
[2023-12-20] MEDS: MORPHINE 4 MG/ML 1ML VIAL IV ONE (21:26)
[2023-12-20 22:06] LABS: CK-MB VALUE MASS 2.3 NG/ML (<3.6)
[2023-12-20 22:09] LABS: MB/CK RELATIVE INDEX 8.51 (< OR =4)
[2023-12-20] MEDS: NITROGLYCERIN 0.4MG SUBL TABLET SL PRN (22:32)
[2023-12-20 23:16] VITALS: BP 189/81; TEMP 97.6; O2SAT 94
== END 2023-12-21 00:07 | disposition home or self-care (01) ==
LOC: M ED 17:43 → EDBD 17:43 → M ED 12-21 00:07
DX: I50.22 Chronic systolic (congestive) heart failure (principal); I44.4 Left anterior fascicular block; E11.9 Type 2 diabetes mellitus without complications; I10 Essential (primary) hypertension; E78.5 Hyperlipidemia, unspecified; K21.9 Gastro-esophageal reflux disease without esophagitis; N18.30 Chronic kidney disease, stage 3 unspecified; Z79.82 Long term (current) use of aspirin; Z79.891 Long term (current) use of opiate analgesic; Z79.4 Long term (current) use of insulin; Z79.52 Long term (current) use of systemic steroids; Z79.899 Other long term (current) drug therapy

== ENCOUNTER 2023-12-22 19:58 | Inpatient (IN) | payer MEDICARE ==
[~2023-12-22] VITALS: Ht 175.3 cm; Wt 79.7 kg
[2023-12-22 21:24] LABS: BASO # 0.1 10^3/uL (0.0-0.2); BASO % 0.2 % (0.0-1.0); EOS # 0.1 10^3/uL (0.0-0.5); EOS % 0.4 % (0.0-3.0); HEMATOCRIT 39.2 % (42.0-52.0); HEMOGLOBIN 12.2 g/dl (13.5-17.5); LYMPH # 0.4 10^3/uL (1.5-5.0); LYMPH % 1.4 % (24.0-44.0); MEAN CORPUSCULAR HEMOGLOBIN 29.6 pg (27.0-33.0); MEAN CORPUSCULAR HGB CONC 31.1 g/dl (32.0-36.5); MEAN CORPUSCULAR VOLUME 95.1 fl (80.0-96.0); MONO # 0.7 10^3/uL (0.0-0.8); MONO % 2.4 % (2.0-8.0); NEUTROPHILS # 26.9 10^3/uL (1.5-8.5); NEUTROPHILS % 94.9 % (36.0-66.0); PLATELET COUNT, AUTOMATED 239 10^3/uL (150-450); RED BLOOD COUNT 4.12 10^6/uL (4.30-6.10); WHITE BLOOD COUNT 28.3 10^3/uL (4.0-10.0)
[2023-12-22 21:50] LABS: C REACTIVE PROTEIN QUANTITATIV 11.7 MG/DL (<1.0)
[2023-12-22 21:58] LABS: PROCALCITONIN 2.79 ng/ml
[2023-12-22 22:00] LABS: BILIRUBIN,DIRECT 0.2 MG/DL (<0.4); BILIRUBIN,TOTAL 0.4 MG/DL (0.3-1.2); CALCIUM LEVEL 7.5 MG/DL (8.3-10.6); CREATININE FOR GFR 1.67 MG/DL (0.70-1.30); GLOMERULAR FILTRATION RATE 42.1 (>35); POTASSIUM SERUM 5.2 MMOL/L (3.5-5.1); TOTAL PROTEIN 5.2 G/DL (5.7-8.2)
[2023-12-22 22:01] LABS: RSV AMPLIFICATION NEGATIVE (NEGATIVE)
[2023-12-22] MEDS ORDERED: VANCOMYCIN HCL 1,000 MG in IV FLUID PLACE HOLDER 1 EA IV ONE (22:55)
[2023-12-22 23:05] LABS: CK-MB VALUE MASS 1.1 NG/ML (<3.6)
[2023-12-22 23:18] LABS: MB/CK RELATIVE INDEX 6.87 (< OR =4)
[2023-12-22] MEDS: AZITHROMYCIN 250MG TABLET PO ONE (23:31)
[2023-12-22] MEDS: NS 500 ML IV ONE (23:33)
[2023-12-22] MEDS ORDERED: HOME MED LIST COMPLETE! XX SCH (23:45)
[2023-12-22] MEDS: PIPERACILLIN/TAZOBACTAM SOD 4.5 GM in D5W MINI-BAG PLUS 50 ML IV ONE (23:52)
[2023-12-23] VITALS (23 sets, daily range): BP systolic 130–169; BP diastolic 68–79; TEMP 97.1–98.4; O2SAT 85–99
[2023-12-23] MEDS ORDERED: PIPERACILLIN/TAZOBACTAM SOD 4.5 GM in D5W MINI-BAG PLUS 50 ML IV SCH (00:50)
[2023-12-23] MEDS ORDERED: VANCOMYCIN HCL 1,230 MG in IV FLUID PLACE HOLDER 1 EA IV SCH (00:50)
[2023-12-23] MEDS ORDERED: GLUCOSE 4GM CHEW TABLET PO PRN (01:20)
[2023-12-23] MEDS ORDERED: GLUCAGON INJ 1MG VIAL SC PRN (01:20)
[2023-12-23] MEDS ORDERED: DEXTROSE 50% 50ML SYRINGE IV PRN (01:20)
[2023-12-23] MEDS: VANCOMYCIN HCL 1,000 MG, VIAL MATE ADAPTER 1 EACH in D5W 250 ML IV ONE (01:29)
[2023-12-23] MEDS ORDERED: PILL CUTTER 1 EACH XX PRN (01:55)
[2023-12-23] MEDS: LEVEMIR (INSULIN DETEMIR) 1 UNITS/0.01ML SC SCH (03:48)
[2023-12-23] MEDS: INSULIN LISPRO (NovoLOG) PER UNIT SC ONE (04:03)
[2023-12-23] MEDS: amLODIPine 5 MG TAB PO ONE (04:04)
[2023-12-23] MEDS: PIPERACILLIN/TAZOBACTAM SOD 3.375 GM in D5W MINI-BAG PLUS 50 ML IV SCH (06:45)
[2023-12-23 08:16] LABS: BASO % 0.2 % (0.0-1.0); HEMATOCRIT 39.2 % (42.0-52.0); HEMOGLOBIN 12.2 g/dl (13.5-17.5); LYMPH # 0.5 10^3/uL (1.5-5.0); LYMPH % 2.7 % (24.0-44.0); MEAN CORPUSCULAR HEMOGLOBIN 29.5 pg (27.0-33.0); MEAN CORPUSCULAR HGB CONC 31.1 g/dl (32.0-36.5); MEAN CORPUSCULAR VOLUME 94.9 fl (80.0-96.0); MONO # 0.5 10^3/uL (0.0-0.8); MONO % 2.5 % (2.0-8.0); NEUTROPHILS # 19.1 10^3/uL (1.5-8.5); PLATELET COUNT, AUTOMATED 234 10^3/uL (150-450); RED BLOOD COUNT 4.13 10^6/uL (4.30-6.10); WHITE BLOOD COUNT 20.3 10^3/uL (4.0-10.0)
[2023-12-23 08:30] LABS: ERYTHROCYTE SEDIMENTATION RATE 55 mm/hr (0-20)
[2023-12-23 08:34] LABS: C REACTIVE PROTEIN QUANTITATIV 19.5 MG/DL (<1.0)
[2023-12-23] MEDS: ENOXAPARIN 40MG/0.4ML SYRINGE (J1650 PER 10MG) SC SCH (08:34)
[2023-12-23 08:35] LABS: CALCIUM LEVEL 7.7 MG/DL (8.3-10.6); CREATININE FOR GFR 1.65 MG/DL (0.70-1.30); GLOMERULAR FILTRATION RATE 42.7 (>35); POTASSIUM SERUM 4.6 MMOL/L (3.5-5.1)
[2023-12-23] MEDS: INSULIN LISPRO (NovoLOG) PER UNIT SC SCH ×2 (08:35→20:36)
[2023-12-23] MEDS: BRIMONIDINE 0.15% OPHTH SOLN 5 ML OU SCH (08:35)
[2023-12-23] MEDS: VANCOMYCIN HCL 1,000 MG, VIAL MATE ADAPTER 1 EACH in D5W 250 ML IV SCH (08:35)
[2023-12-23] MEDS: TIMOLOL MALEATE 0.5% OPHTH SOLN 5 ML OU SCH (08:36)
[2023-12-23] MEDS: VITAMIN D 1,000 INTERNATIONAL UNITS TABLET PO SCH (08:36)
[2023-12-23] MEDS: predniSONE 20 MG TAB PO SCH (08:36)
[2023-12-23] MEDS: MAGNESIUM OXIDE 400MG TAB (MAG-OX) PO SCH (08:36)
[2023-12-23] MEDS: ASPIRIN 81MG ENTERIC TABLET PO SCH (08:36)
[2023-12-23] MEDS: ISOSORBIDE DIN. (ISORDIL) 20 MG TAB PO SCH (08:37)
[2023-12-23] MEDS: PANTOPRAZOLE 40MG TAB (PROTONIX) PO SCH (08:37)
[2023-12-23] MEDS: BISACODYL 5MG TAB PO SCH (08:37)
[2023-12-23] MEDS: FINASTERIDE 5MG TAB PO SCH (08:37)
[2023-12-23] MEDS: LACTOBACILLUS ACIDOPHILUS CAP (BACID) PO SCH (08:37)
[2023-12-23] MEDS: DOCUSATE SODIUM 100MG CAPSULE PO SCH (08:38)
[2023-12-23] MEDS: TORSEMIDE 20 MG TAB PO SCH (08:38)
[2023-12-23] MEDS: SENOKOT S TAB PO SCH (08:39)
[2023-12-23 08:40] LABS: PROCALCITONIN 2.3 ng/ml
[2023-12-23] MEDS ORDERED: LEVEMIR (INSULIN DETEMIR) 1 UNITS/0.01ML SC SCH (09:00)
[2023-12-23] MEDS: NALOXEGOL 25 MG PO SCH (09:00)
[2023-12-23] MEDS ORDERED: amLODIPine 5 MG TAB PO SCH (09:00)
[2023-12-23] MEDS ORDERED: BRIMONIDINE 0.1% OPHTH SOLN 5ML OU SCH (09:00)
[2023-12-23] MEDS: MORPHINE 30 MG TAB **MSIR PO PRN ×2 (09:08→20:15)
[2023-12-23 09:17] LABS: VANCOMYCIN RANDOM 11.5 UG/ML
[2023-12-23 15:22] LABS: COMPLEMENT C4 28.3 MG/DL (12-36); IMMUNOGLOBULIN G 950 MG/DL (650-1600)
[2023-12-23] MEDS: ACETAMINOPHEN TAB 650MG DOSE (2X325MG) PO PRN (17:22)
[2023-12-23] MEDS: SIMVASTATIN 20 MG TAB PO SCH (20:12)
[2023-12-23] MEDS: GABAPENTIN 400MG CAP PO SCH (20:13)
[2023-12-23] MEDS: AZITHROMYCIN 250MG TABLET PO SCH (20:14)
[2023-12-23] MEDS: RAMELTEON 8 MG TAB (ROZEREM) PO PRN (23:19)
[2023-12-24] VITALS (13 sets, daily range): BP systolic 120–173; BP diastolic 57–77; TEMP 97.4–97.9; O2SAT 89–99
[2023-12-24] MEDS ORDERED: UNRESOLVED PATIENT OWN MED ORDER XX SCH (00:01)
[2023-12-24 05:52] LABS: HEMOGLOBIN 10.4 g/dl (13.5-17.5); MEAN CORPUSCULAR HEMOGLOBIN 29.3 pg (27.0-33.0); MEAN CORPUSCULAR HGB CONC 31.5 g/dl (32.0-36.5); PLATELET COUNT, AUTOMATED 213 10^3/uL (150-450); RED BLOOD COUNT 3.55 10^6/uL (4.30-6.10)
[2023-12-24 06:18] LABS: ALBUMIN 1.8 G/DL (3.2-5.2); BILIRUBIN,TOTAL 0.5 MG/DL (0.3-1.2); CALCIUM LEVEL 7.5 MG/DL (8.3-10.6); CREATININE FOR GFR 1.59 MG/DL (0.70-1.30); GLOMERULAR FILTRATION RATE 44.6 (>35); MAGNESIUM LEVEL 2.3 MG/DL (1.8-2.4); POTASSIUM SERUM 4.5 MMOL/L (3.5-5.1); TOTAL PROTEIN 4.9 G/DL (5.7-8.2)
[2023-12-24 11:59] LABS: HEMOGLOBIN A1c 8.1 % (4.0-6.0)
[2023-12-24] MEDS: INSULIN LISPRO (NovoLOG) PER UNIT SC SCH (14:42)
[2023-12-24] MEDS: LEVEMIR (INSULIN DETEMIR) 1 UNITS/0.01ML SC SCH (21:00)
[2023-12-24] MEDS ORDERED: LEVEMIR (INSULIN DETEMIR) 1 UNITS/0.01ML SC SCH (21:00)
[2023-12-25 04:03] VITALS: BP 175/89; TEMP 98.1; O2SAT 95
[2023-12-25] MEDS: METOPROLOL TART 25 MG TABLET PO ONE (08:00)
[2023-12-25 08:18] LABS: BASO % 0.1 % (0.0-1.0); EOS % 0.1 % (0.0-3.0); HEMATOCRIT 37.9 % (42.0-52.0); LYMPH % 7.4 % (24.0-44.0); MEAN CORPUSCULAR HEMOGLOBIN 29.5 pg (27.0-33.0); MEAN CORPUSCULAR HGB CONC 31.7 g/dl (32.0-36.5); MEAN CORPUSCULAR VOLUME 93.1 fl (80.0-96.0); MONO # 0.5 10^3/uL (0.0-0.8); MONO % 3.9 % (2.0-8.0); NEUTROPHILS % 87.4 % (36.0-66.0); PLATELET COUNT, AUTOMATED 282 10^3/uL (150-450); RED BLOOD COUNT 4.07 10^6/uL (4.30-6.10); WHITE BLOOD COUNT 13.7 10^3/uL (4.0-10.0)
[2023-12-25] MEDS ORDERED: E-Z-PAQUE 96% w/w SUSP 176GM BTL As Ordered ONE (08:20)
[2023-12-25] MEDS ORDERED: E-Z-GAS II EFFERVESCENT PACKET (SODIUM BICARB./CITRIC ACID/SIMETHICONE) As Ordered ONE (08:21)
[2023-12-25] MEDS ORDERED: E-Z-HD 98% w/w 340GM SUSP BTL As Ordered ONE (08:21)
[2023-12-25 08:28] LABS: INR 1.05; PARTIAL THROMBOPLASTIN TIME 24.4 SECONDS (24.8-34.2); PROTHROMBIN TIME 13.4 SECONDS (12.5-14.5)
[2023-12-25 08:50] LABS: CALCIUM LEVEL 8.2 MG/DL (8.3-10.6); CREATININE FOR GFR 1.6 MG/DL (0.70-1.30); GLOMERULAR FILTRATION RATE 44.3 (>35); MAGNESIUM LEVEL 2.4 MG/DL (1.8-2.4); POTASSIUM SERUM 4.8 MMOL/L (3.5-5.1)
[2023-12-25 08:58] LABS: PROCALCITONIN 0.47 ng/ml
[2023-12-25] MEDS ORDERED: LIDOCAINE 1% SDV 30ML VIAL As Ordered ONE (09:26)
[2023-12-25] MEDS ORDERED: THROMBIN 5,000 UNITS VIAL As Ordered ONE (09:26)
[2023-12-25] MEDS ORDERED: CETACAINE SPRAY 5GM As Ordered ONE (09:26)
[2023-12-25] MEDS ORDERED: EPINEPHrine INJ 1 MG/ML 1ML AMP As Ordered ONE (09:27)
[2023-12-25] MEDS ORDERED: LIDOCAINE 4% TOPICAL SOLN 50 ML BTL As Ordered ONE (09:27)
[2023-12-25] MEDS ORDERED: EPINEPHrine 1MG/10ML SYRINGE 1.5IN As Ordered ONE (09:31)
[2023-12-25] MEDS ORDERED: DEXTROSE 50% 50ML SYRINGE IV PRN (10:20)
[2023-12-25] MEDS ORDERED: LR 1,000 ML IV SCH (10:20)
[2023-12-25] MEDS ORDERED: GLUCOSE 4GM CHEW TABLET PO PRN (10:20)
[2023-12-25] MEDS ORDERED: INSULIN LISPRO (NovoLOG) PER UNIT SC PRN (10:20)
[2023-12-25] MEDS ORDERED: GLUCAGON INJ 1MG VIAL SC PRN (10:20)
[2023-12-25] MEDS ORDERED: INSULIN LISPRO (NovoLOG) PER UNIT As Ordered ONE (10:24)
[2023-12-25] MEDS ORDERED: NITROGLYCERIN 2% OINT 1 GM *U/D* PKT TOP ONE (11:00)
[2023-12-25] MEDS ORDERED: PHENYLephrine 500MCG 5ML (100MCG/ML) SYRINGE As Ordered ONE (11:09)
[2023-12-25] MEDS ORDERED: ONDANSETRON 4MG 2ML VIAL As Ordered ONE (11:09)
[2023-12-25] MEDS ORDERED: ROCURONIUM BROMIDE 50MG/5ML VIAL As Ordered ONE (11:09)
[2023-12-25] MEDS ORDERED: MIDAZOLAM INJ 2MG/2ML VIAL As Ordered ONE (11:09)
[2023-12-25] MEDS ORDERED: LIDOCAINE 2% 100MG/5ML SDV (FOR ANES.) As Ordered ONE (11:09)
[2023-12-25] MEDS ORDERED: fentaNYL 100 MCG/2 ML INJECTION As Ordered ONE (11:09)
[2023-12-25] MEDS ORDERED: SUGAMMADEX SODIUM 500 MG/5 ML VIAL (BRIDION) As Ordered ONE (11:09)
[2023-12-25] MEDS ORDERED: diphenhydrAMINE 50MG/ML VIAL IV PRN (11:30)
[2023-12-25] MEDS ORDERED: ALBUTEROL SULFATE 2.5MG/0.5ML INH NEB SOLN INH PRN (11:30)
[2023-12-25] MEDS ORDERED: MEPERIDINE 25 MG/ML 1ML VIAL IV PRN (11:30)
[2023-12-25] MEDS ORDERED: METOCLOPRAMIDE INJ 10MG/2ML VIAL IV PRN (11:30)
[2023-12-25] MEDS ORDERED: ONDANSETRON 4MG 2ML VIAL IV PRN ×2 (11:30→21:55)
[2023-12-25 12:19] VITALS: BP 179/83; TEMP 97.1; O2SAT 98
[2023-12-25] MEDS: TORSEMIDE 20 MG TAB PO SCH (13:18)
[2023-12-25] MEDS: predniSONE 20 MG TAB PO SCH (13:18)
[2023-12-25] MEDS: LEVEMIR (INSULIN DETEMIR) 1 UNITS/0.01ML SC SCH (13:29)
[2023-12-25] MEDS: ALBUTEROL SULFATE 2.5MG/0.5ML INH NEB SOLN NEB SCH (13:40)
[2023-12-25] MEDS: SODIUM CHLORIDE HYPERTONIC 3% 4ML NEB SOL INH SCH (13:40)
[2023-12-25 15:11] VITALS: BP 152/68
[2023-12-25 15:30] VITALS: BP 111/63; TEMP 97.7; O2SAT 88
[2023-12-25] MEDS: LR 1,000 ML IV SCH (15:41)
[2023-12-25] MEDS: ISOSORBIDE MONONITRATE 10MG TABLET PO SCH (15:42)
[2023-12-25 16:08] LABS: ANTINUCLEAR ANTIBODIES DIRECT Negative (Negative); COMPLEMENT TOTAL (CH50) > 60 U/mL (>41)
[2023-12-25] MEDS ORDERED: AMLO1TAB25 PO (17:10)
[2023-12-25] MEDS ORDERED: LEVO1TAB40 PO (17:11)
[2023-12-25 20:00] VITALS: BP 142/65; TEMP 98.4; O2SAT 97
[2023-12-25] MEDS: METOPROLOL TART 25 MG TABLET PO SCH (20:31)
[2023-12-25] MEDS ORDERED: ISOSORBIDE DIN. (ISORDIL) 20 MG TAB PO SCH (21:00)
[2023-12-25] MEDS: PINK BISMUTH SUSP 524MG/30ML ORAL SYRINGE PO PRN (21:25)
[2023-12-26 06:00] VITALS: BP 153/71; TEMP 98; O2SAT 98
[2023-12-26] MEDS ORDERED: ISOS1TAB36 PO (07:04)
[2023-12-26 08:54] VITALS: BP 123/60
[2023-12-26] MEDS: ISOSORBIDE MON. (IMDUR) 60MG XR TAB PO ONE (08:54)
[2023-12-26] MEDS ORDERED: PRED10TA2 PO (10:12)
[2023-12-27] MEDS ORDERED: ISOSORBIDE MON. (IMDUR) 60MG XR TAB PO SCH (09:00)
[2023-12-28 16:08] LABS: BODY FLUID CULTURE Not indicated. (.); LEGIONELLA ANTIGEN URINE Negative (Negative); ORGANISM ID Not indicated. (.); SPECIMEN SOURCE Urine (.); URINE STREP PNEUMONIAE ANTIGEN Negative (Negative)
== END 2023-12-26 13:34 | disposition home or self-care (01) | DRG 166 ==
LOC: M ED 19:58 → M ED INP 12-23 00:48 → ENRESERV 12-23 02:02 → M PCU 12-23 02:55 → M MSPAV 12-25 15:16
PROVIDERS: ADMIT Internal Medicine; ATTEND General Practice
PROC: 0BBD8ZX Excision of Right Middle Lung Lobe, Via Natural or Artificial Opening Endoscopic, Diagnostic (ICD-10-PCS; 2023-12-25)
PROC: 0BC38ZZ Extirpation of Matter from Right Main Bronchus, Via Natural or Artificial Opening Endoscopic (ICD-10-PCS; 2023-12-25)
PROC: 0BBF8ZX Excision of Right Lower Lung Lobe, Via Natural or Artificial Opening Endoscopic, Diagnostic (ICD-10-PCS; principal; 2023-12-25 09:30)
DX: J15.69 Pneumonia due to other Gram-negative bacteria (principal); J96.21 Acute and chronic respiratory failure with hypoxia; I50.32 Chronic diastolic (congestive) heart failure; N17.9 Acute kidney failure, unspecified; I13.0 Hypertensive heart and chronic kidney disease with heart failure and stage 1 through stage 4 chronic kidney disease, or unspecified chronic kidney disease; I25.10 Atherosclerotic heart disease of native coronary artery without angina pectoris; E11.51 Type 2 diabetes mellitus with diabetic peripheral angiopathy without gangrene; E78.5 Hyperlipidemia, unspecified; E11.40 Type 2 diabetes mellitus with diabetic neuropathy, unspecified; K21.9 Gastro-esophageal reflux disease without esophagitis; I44.7 Left bundle-branch block, unspecified; I16.0 Hypertensive urgency; E11.65 Type 2 diabetes mellitus with hyperglycemia; E87.5 Hyperkalemia; G89.29 Other chronic pain; E11.22 Type 2 diabetes mellitus with diabetic chronic kidney disease; K59.09 Other constipation; H91.93 Unspecified hearing loss, bilateral; N18.30 Chronic kidney disease, stage 3 unspecified; N40.0 Benign prostatic hyperplasia without lower urinary tract symptoms; M10.9 Gout, unspecified; M54.9 Dorsalgia, unspecified; Z99.81 Dependence on supplemental oxygen; Z95.5 Presence of coronary angioplasty implant and graft; Z79.82 Long term (current) use of aspirin; Z79.4 Long term (current) use of insulin; Z79.899 Other long term (current) drug therapy; Z79.52 Long term (current) use of systemic steroids; Z89.422 Acquired absence of other left toe(s); Z96.659 Presence of unspecified artificial knee joint

== ENCOUNTER → 2023-12-31 | Outpatient (REF) | payer MEDICARE ==
[~2023-12-31] MED LIST changes: +AMLO1TAB25 PO; +ISOS1TAB36 PO; +PRED10TA2 PO
[2023-12-31 17:02] LABS: HEMATOCRIT 36.9 % (42.0-52.0); HEMOGLOBIN 11.4 g/dl (13.5-17.5); MEAN CORPUSCULAR HEMOGLOBIN 29.9 pg (27.0-33.0); MEAN CORPUSCULAR HGB CONC 30.9 g/dl (32.0-36.5); MEAN CORPUSCULAR VOLUME 96.9 fl (80.0-96.0); PLATELET COUNT, AUTOMATED 337 10^3/uL (150-450); RED BLOOD COUNT 3.81 10^6/uL (4.30-6.10); WHITE BLOOD COUNT 18.2 10^3/uL (4.0-10.0)
[2023-12-31 17:27] LABS: ALBUMIN 2.2 G/DL (3.2-5.2); ALKALINE PHOSPHATASE 71 U/L (46-116); ALT/SGPT < 9 U/L (7.0-40); AST/SGOT 17 U/L (<34); BILIRUBIN,TOTAL 0.3 MG/DL (0.3-1.2); BLOOD UREA NITROGEN 48 MG/DL (9-23); CARBON DIOXIDE LEVEL 34 MMOL/L (20-31); CHLORIDE LEVEL 98 MMOL/L (98-107); CREATININE FOR GFR 1.68 MG/DL (0.70-1.30); GLOMERULAR FILTRATION RATE 41.9 (>35); GLUCOSE, FASTING 216 MG/DL (74-106); POTASSIUM SERUM 4.6 MMOL/L (3.5-5.1); SODIUM LEVEL 135 MMOL/L (136-145); TOTAL PROTEIN 5.3 G/DL (5.7-8.2)
== END ==
LOC: M LABWUC 16:20 → M LAB REF 16:20
PROVIDERS: ATTEND Physician Assistant
DX: I50.9 Heart failure, unspecified (principal); I25.10 Atherosclerotic heart disease of native coronary artery without angina pectoris

== ENCOUNTER → 2024-01-21 | Outpatient (REF) | payer MEDICARE ==
[2024-01-21 20:21] LABS: HEMOGLOBIN 11.5 g/dl (13.5-17.5); MEAN CORPUSCULAR HEMOGLOBIN 30.8 pg (27.0-33.0); MEAN CORPUSCULAR HGB CONC 31.1 g/dl (32.0-36.5); MEAN CORPUSCULAR VOLUME 99.2 fl (80.0-96.0); PLATELET COUNT, AUTOMATED 356 10^3/uL (150-450); RED BLOOD COUNT 3.73 10^6/uL (4.30-6.10)
[2024-01-21 20:42] LABS: CALCIUM LEVEL 8.2 MG/DL (8.3-10.6); CREATININE FOR GFR 1.47 MG/DL (0.70-1.30); GLOMERULAR FILTRATION RATE 48.8 (>35); POTASSIUM SERUM 4.9 MMOL/L (3.5-5.1)
== END ==
LOC: M LAB REF 19:45
PROVIDERS: ATTEND Physician Assistant
DX: R10.9 Unspecified abdominal pain (principal)

== ENCOUNTER → 2024-01-26 | Outpatient (CLI) | payer MEDICARE ==
[~2024-01-26] MED LIST changes: +ISOVUE-370 76% 100ML VIAL As Ordered ONE
[2024-01-26 12:24] LABS: ALBUMIN 2.4 G/DL (3.2-5.2); CALCIUM LEVEL 8.6 MG/DL (8.3-10.6); CREATININE FOR GFR 1.33 MG/DL (0.70-1.30); GLOMERULAR FILTRATION RATE 54.8 (>35); PHOSPHORUS LEVEL 3.7 MG/DL (2.4-5.1); POTASSIUM SERUM 4.6 MMOL/L (3.5-5.1)
== END ==
LOC: M RAD 11:12
PROVIDERS: ATTEND Physician Assistant
DX: R10.9 Unspecified abdominal pain (principal)
CPT/HCPCS: 36415; 74177; 80069; Q9967

== ENCOUNTER → 2024-01-28 | Outpatient (CLI) | payer MEDICARE ==
[~2024-01-28] MED LIST changes: -ISOVUE-370 76% 100ML VIAL As Ordered ONE
== END ==
LOC: M RAD 10:05
PROVIDERS: ATTEND Internal Medicine Pulmonary Disease
DX: R91.8 Other nonspecific abnormal finding of lung field (principal)

== ENCOUNTER 2024-02-02 16:22 | Inpatient (IN) | payer MEDICARE ==
[~2024-02-02] VITALS: Ht 175.3 cm; Wt 78.1 kg
[2024-02-02] MEDS ORDERED: OCUV1CHW PO (16:42)
[2024-02-02 17:58] LABS: BASO # 0.2 10^3/uL (0.0-0.2); BASO % 0.9 % (0.0-1.0); EOS # 0.2 10^3/uL (0.0-0.5); EOS % 1.1 % (0.0-3.0); HEMATOCRIT 39.3 % (42.0-52.0); HEMOGLOBIN 12.2 g/dl (13.5-17.5); LYMPH # 1.1 10^3/uL (1.5-5.0); LYMPH % 6.6 % (24.0-44.0); MEAN CORPUSCULAR HEMOGLOBIN 30.3 pg (27.0-33.0); MEAN CORPUSCULAR VOLUME 97.8 fl (80.0-96.0); MONO # 1.1 10^3/uL (0.0-0.8); MONO % 6.7 % (2.0-8.0); NEUTROPHILS % 82.3 % (36.0-66.0); PLATELET COUNT, AUTOMATED 607 10^3/uL (150-450); RED BLOOD COUNT 4.02 10^6/uL (4.30-6.10)
[2024-02-02 18:22] LABS: ALBUMIN 2.2 G/DL (3.2-5.2); BILIRUBIN,DIRECT 0.1 MG/DL (<0.4); BILIRUBIN,TOTAL 0.3 MG/DL (0.3-1.2); CREATININE FOR GFR 1.43 MG/DL (0.70-1.30); GLOMERULAR FILTRATION RATE 50.4 (>35); POTASSIUM SERUM 4.3 MMOL/L (3.5-5.1); TOTAL PROTEIN 6.1 G/DL (5.7-8.2)
[2024-02-02] MEDS ORDERED: ISOVUE-370 76% 100ML VIAL As Ordered ONE (19:41)
[2024-02-02] MEDS: PIPERACILLIN/TAZOBACTAM SOD 4.5 GM in D5W MINI-BAG PLUS 50 ML IV ONE (21:56)
[2024-02-02] MEDS ORDERED: HOME MED LIST COMPLETE! XX SCH (22:10)
[2024-02-02] MEDS ORDERED: ACET-897 PO (22:13)
[2024-02-03] MEDS ORDERED: GLUCOSE 4GM CHEW TABLET PO PRN (00:50)
[2024-02-03] MEDS ORDERED: GLUCAGON INJ 1MG VIAL SC PRN (00:50)
[2024-02-03] MEDS ORDERED: DEXTROSE 50% 50ML SYRINGE IV PRN (00:50)
[2024-02-03] MEDS ORDERED: ACETAMINOPHEN TAB 650MG DOSE (2X325MG) PO PRN (00:50)
[2024-02-03] MEDS ORDERED: ALBUTEROL SULFATE 2.5MG/0.5ML INH NEB SOLN INH PRN (00:50)
[2024-02-03] MEDS ORDERED: ONDANSETRON 4MG 2ML VIAL IV PRN (00:50)
[2024-02-03] MEDS: GABAPENTIN 400MG CAP PO SCH (02:16)
[2024-02-03 02:39] VITALS: BP 130/62; TEMP 97.9; O2SAT 89
[2024-02-03] MEDS: metroNIDAZOLE 500 MG in IV 1 EA IV SCH (02:47)
[2024-02-03] MEDS: HYDROMORPHONE HCL 0.5 MG/ 0.5 ML SYRINGE IV PRN (03:15)
[2024-02-03] MEDS: cefTRIAXone SOD 1 GM in D5W MINI-BAG PLUS 50 ML IV SCH (03:55)
[2024-02-03] MEDS: AZITHROMYCIN INJ 500 MG, VIAL MATE ADAPTER 1 EACH in D5W 250 ML IV SCH (04:45)
[2024-02-03] MEDS: INSULIN LISPRO (NovoLOG) PER UNIT SC SCH (06:00)
[2024-02-03 06:14] VITALS: BP 130/68; TEMP 97.5; O2SAT 95
[2024-02-03] MEDS: LR 1,000 ML IV SCH (06:53)
[2024-02-03 08:52] LABS: CALCIUM LEVEL 8.2 MG/DL (8.3-10.6); CREATININE FOR GFR 1.35 MG/DL (0.70-1.30); GLOMERULAR FILTRATION RATE 53.9 (>35); POTASSIUM SERUM 4.4 MMOL/L (3.5-5.1)
[2024-02-03] MEDS: ASPIRIN 300 MG SUPP PR SCH (09:00)
[2024-02-03] MEDS: FINASTERIDE 5MG TAB PO SCH (10:07)
[2024-02-03] MEDS: PANTOPRAZOLE 40MG VIAL IV SCH (10:07)
[2024-02-03] MEDS: TAMSULOSIN 0.4 MG CAP PO SCH (10:07)
[2024-02-03] MEDS: ISOSORBIDE MON. (IMDUR) 60MG XR TAB PO SCH (10:07)
[2024-02-03] MEDS: HEPARIN SOD (PORCINE) 5000UNITS/ML 1ML VIAL/SYRINGE SC SCH (10:08)
[2024-02-03] MEDS ORDERED: VARIBAR PUDDING 40% w/v 230ML TUBE As Ordered ONE (10:26)
[2024-02-03] MEDS ORDERED: E-Z-PAQUE 96% w/w SUSP 176GM BTL As Ordered ONE (10:26)
[2024-02-03] MEDS ORDERED: VARIBAR NECTAR 40% w/v 240ML SUSP BTL As Ordered ONE (10:26)
[2024-02-03] MEDS ORDERED: BARIUM SULFATE 700 MG TABLET (E-Z-DISK) As Ordered ONE (10:26)
[2024-02-03] MEDS: AMPICILLIN SOD/SULBACTAM SOD 3 GM in D5W MINI-BAG PLUS 100 ML IV SCH (12:58)
[2024-02-03 13:36] VITALS: BP 111/50; TEMP 98.4; O2SAT 90
[2024-02-03 14:34] LABS: THYROID STIMULATING HORMONE 1.555 uIU/ML (0.55-4.78)
[2024-02-03 14:35] LABS: FREE T4 0.89 NG/DL (0.89-1.76)
[2024-02-03] MEDS: MORPHINE 30 MG TAB **MSIR PO PRN (15:24)
[2024-02-03] MEDS: MORPHINE 30 MG TAB **MSIR PO SCH (20:23)
[2024-02-03 21:21] VITALS: BP 115/51; TEMP 97.9; O2SAT 94
[2024-02-04 05:38] VITALS: BP 126/42; TEMP 97.5; O2SAT 97
[2024-02-04 07:07] LABS: BASO # 0.2 10^3/uL (0.0-0.2); BASO % 1.6 % (0.0-1.0); EOS # 0.4 10^3/uL (0.0-0.5); EOS % 4.2 % (0.0-3.0); HEMATOCRIT 30.4 % (42.0-52.0); LYMPH # 1.6 10^3/uL (1.5-5.0); LYMPH % 15.4 % (24.0-44.0); MEAN CORPUSCULAR HGB CONC 30.6 g/dl (32.0-36.5); MEAN CORPUSCULAR VOLUME 98.1 fl (80.0-96.0); MONO # 1.2 10^3/uL (0.0-0.8); MONO % 11.7 % (2.0-8.0); NEUTROPHILS # 6.3 10^3/uL (1.5-8.5); NEUTROPHILS % 62.4 % (36.0-66.0); PLATELET COUNT, AUTOMATED 451 10^3/uL (150-450); WHITE BLOOD COUNT 10.1 10^3/uL (4.0-10.0)
[2024-02-04 07:14] LABS: HEMOGLOBIN 9.3 g/dl (13.5-17.5)
[2024-02-04 07:25] LABS: CALCIUM LEVEL 7.8 MG/DL (8.3-10.6); CREATININE FOR GFR 1.39 MG/DL (0.70-1.30); GLOMERULAR FILTRATION RATE 52.1 (>35); POTASSIUM SERUM 4.1 MMOL/L (3.5-5.1)
[2024-02-04 09:35] VITALS: BP 126/42
[2024-02-04] MEDS ORDERED: CIPR500T39 PO (12:08)
[2024-02-04] MEDS ORDERED: METR-265 PO (12:08)
[2024-02-04] MEDS: CIPROFLOXACIN 500MG TABLET PO SCH (13:20)
[2024-02-04 14:58] VITALS: BP 108/51; TEMP 97.7; O2SAT 93
[2024-02-04] MEDS ORDERED: metroNIDAZOLE (FLAGYL) 500MG TABLET PO SCH (16:00)
== END 2024-02-04 15:25 | disposition home or self-care (01) | DRG 391 ==
LOC: M ED 16:22 → M ED INP 02-03 00:48 → ENRESERV 02-03 01:29 → CANRESERV 02-03 01:29 → ENRESERV 02-03 01:39 → M MS5PR 02-03 02:25
PROVIDERS: ADMIT Internal Medicine; ATTEND Internal Medicine
DX: K57.32 Diverticulitis of large intestine without perforation or abscess without bleeding (principal); J69.0 Pneumonitis due to inhalation of food and vomit; I12.9 Hypertensive chronic kidney disease with stage 1 through stage 4 chronic kidney disease, or unspecified chronic kidney disease; E11.22 Type 2 diabetes mellitus with diabetic chronic kidney disease; I25.10 Atherosclerotic heart disease of native coronary artery without angina pectoris; N18.9 Chronic kidney disease, unspecified; D64.9 Anemia, unspecified; Z96.659 Presence of unspecified artificial knee joint; K21.9 Gastro-esophageal reflux disease without esophagitis; Z79.82 Long term (current) use of aspirin; Z79.4 Long term (current) use of insulin; Z79.891 Long term (current) use of opiate analgesic; Z79.899 Other long term (current) drug therapy

== ENCOUNTER 2024-02-06 14:27 | Emergency (ER) | payer MEDICARE ==
[~2024-02-06] VITALS: Ht 175.3 cm; Wt 83.0 kg
[~2024-02-06 14:27] MED LIST changes: +ACET-897 PO; +CIPR500T39 PO; +OCUV1CHW PO
[2024-02-06 15:30] LABS: BASO # 0.1 10^3/uL (0.0-0.2); BASO % 1.4 % (0.0-1.0); EOS # 0.2 10^3/uL (0.0-0.5); EOS % 2.3 % (0.0-3.0); HEMATOCRIT 36.4 % (42.0-52.0); HEMOGLOBIN 11.3 g/dl (13.5-17.5); LYMPH # 1.2 10^3/uL (1.5-5.0); LYMPH % 12.3 % (24.0-44.0); MEAN CORPUSCULAR HEMOGLOBIN 30.2 pg (27.0-33.0); MEAN CORPUSCULAR VOLUME 97.3 fl (80.0-96.0); MONO # 0.8 10^3/uL (0.0-0.8); MONO % 8.8 % (2.0-8.0); NEUTROPHILS # 6.7 10^3/uL (1.5-8.5); PLATELET COUNT, AUTOMATED 481 10^3/uL (150-450); RED BLOOD COUNT 3.74 10^6/uL (4.30-6.10); WHITE BLOOD COUNT 9.4 10^3/uL (4.0-10.0)
[2024-02-06] MEDS: PERCOCET 5MG/325MG TAB PO ONE (15:48)
[2024-02-06 15:58] LABS: LIPASE 14 U/L (12-53)
[2024-02-06 16:01] LABS: ALBUMIN 2.1 G/DL (3.2-5.2); ALKALINE PHOSPHATASE 84 U/L (46-116); ALT/SGPT 13 U/L (7.0-40); AST/SGOT 28 U/L (<34); BILIRUBIN,DIRECT < 0.1 MG/DL (<0.4); BILIRUBIN,TOTAL 0.3 MG/DL (0.3-1.2); BLOOD UREA NITROGEN 9 MG/DL (9-23); CALCIUM LEVEL 8.9 MG/DL (8.3-10.6); CARBON DIOXIDE LEVEL 32 MMOL/L (20-31); CHLORIDE LEVEL 101 MMOL/L (98-107); CREATININE FOR GFR 1.31 MG/DL (0.70-1.30); GLOMERULAR FILTRATION RATE 55.8 (>35); GLUCOSE, FASTING 165 MG/DL (74-106); POTASSIUM SERUM 4.7 MMOL/L (3.5-5.1); SODIUM LEVEL 138 MMOL/L (136-145); TOTAL PROTEIN 5.7 G/DL (5.7-8.2)
[2024-02-06] MEDS ORDERED: ISOVUE-370 76% 100ML VIAL As Ordered ONE (16:14)
[2024-02-06] MEDS ORDERED: PERC5TAB12 PO (17:14)
[2024-02-06 17:15] VITALS: BP 160/67; TEMP 98.1; O2SAT 98
[2024-02-07] MEDS ORDERED: OXYC1TAB23 PO (23:54)
== END 2024-02-06 17:37 | disposition home or self-care (01) ==
LOC: M ED 14:27
DX: K57.92 Diverticulitis of intestine, part unspecified, without perforation or abscess without bleeding (principal); I50.22 Chronic systolic (congestive) heart failure; I25.119 Atherosclerotic heart disease of native coronary artery with unspecified angina pectoris; E11.9 Type 2 diabetes mellitus without complications; I11.0 Hypertensive heart disease with heart failure; K21.9 Gastro-esophageal reflux disease without esophagitis; Z79.1 Long term (current) use of non-steroidal anti-inflammatories (NSAID); Z79.84 Long term (current) use of oral hypoglycemic drugs; Z79.4 Long term (current) use of insulin; Z79.899 Other long term (current) drug therapy

== ENCOUNTER 2024-02-07 16:16 | Inpatient (IN) | payer MEDICARE ==
[~2024-02-07] VITALS: Ht 175.3 cm; Wt 81.3 kg
[~2024-02-07 16:16] MED LIST changes: +PERC5TAB12 PO
[2024-02-07 18:25] LABS: BASO # 0.2 10^3/uL (0.0-0.2); BASO % 1.5 % (0.0-1.0); EOS # 0.2 10^3/uL (0.0-0.5); EOS % 1.7 % (0.0-3.0); HEMOGLOBIN 12.4 g/dl (13.5-17.5); LYMPH # 1.3 10^3/uL (1.5-5.0); LYMPH % 12.1 % (24.0-44.0); MEAN CORPUSCULAR HEMOGLOBIN 29.9 pg (27.0-33.0); MEAN CORPUSCULAR VOLUME 96.4 fl (80.0-96.0); MONO # 0.9 10^3/uL (0.0-0.8); MONO % 8.3 % (2.0-8.0); NEUTROPHILS # 8.1 10^3/uL (1.5-8.5); NEUTROPHILS % 73.8 % (36.0-66.0); PLATELET COUNT, AUTOMATED 484 10^3/uL (150-450); RED BLOOD COUNT 4.15 10^6/uL (4.30-6.10)
[2024-02-07 18:51] LABS: ALBUMIN 2.3 G/DL (3.2-5.2); BILIRUBIN,DIRECT 0.1 MG/DL (<0.4); BILIRUBIN,TOTAL 0.3 MG/DL (0.3-1.2); CREATININE FOR GFR 1.38 MG/DL (0.70-1.30); GLOMERULAR FILTRATION RATE 52.5 (>35); POTASSIUM SERUM 4.8 MMOL/L (3.5-5.1)
[2024-02-07] MEDS: MORPHINE 2 MG/ML 1ML VIAL IV ONE (20:18)
[2024-02-07] MEDS: LEVEMIR (INSULIN DETEMIR) 1 UNITS/0.01ML SC SCH (21:00)
[2024-02-07] MEDS ORDERED: GLUCAGON INJ 1MG VIAL SC PRN (22:30)
[2024-02-07] MEDS ORDERED: GLUCOSE 4GM CHEW TABLET PO PRN (22:30)
[2024-02-07] MEDS ORDERED: DEXTROSE 50% 50ML SYRINGE IV PRN (22:30)
[2024-02-07] MEDS ORDERED: MED REC IN PROGRESS XX SCH (22:35)
[2024-02-07] MEDS ORDERED: OXYC1TAB23 PO (23:54)
[2024-02-07] MEDS ORDERED: HOME MED LIST COMPLETE! XX SCH (23:55)
[2024-02-08 00:10] VITALS: BP 152/90; TEMP 97.5; O2SAT 93
[2024-02-08] MEDS: NS 1,000 ML IV SCH (00:13)
[2024-02-08] MEDS: metroNIDAZOLE 500 MG in IV 1 EA IV SCH (00:14)
[2024-02-08] MEDS: DOCUSATE SODIUM 100MG CAPSULE PO SCH (02:04)
[2024-02-08] MEDS: GABAPENTIN 400MG CAP PO SCH (02:04)
[2024-02-08] MEDS: HYDROMORPHONE HCL 0.5 MG/ 0.5 ML SYRINGE IV PRN (02:32)
[2024-02-08 06:00] VITALS: BP 167/81; TEMP 97.9; O2SAT 94
[2024-02-08 06:48] LABS: HEMATOCRIT 35.5 % (42.0-52.0); MEAN CORPUSCULAR VOLUME 96.7 fl (80.0-96.0); PLATELET COUNT, AUTOMATED 447 10^3/uL (150-450); RED BLOOD COUNT 3.67 10^6/uL (4.30-6.10); WHITE BLOOD COUNT 9.7 10^3/uL (4.0-10.0)
[2024-02-08 07:25] LABS: ALBUMIN 1.9 G/DL (3.2-5.2); BILIRUBIN,TOTAL 0.3 MG/DL (0.3-1.2); CREATININE FOR GFR 1.29 MG/DL (0.70-1.30); GLOMERULAR FILTRATION RATE 56.8 (>35); TOTAL PROTEIN 5.1 G/DL (5.7-8.2)
[2024-02-08] MEDS: FINASTERIDE 5MG TAB PO SCH (08:15)
[2024-02-08] MEDS: TAMSULOSIN 0.4 MG CAP PO SCH (08:16)
[2024-02-08] MEDS: ASPIRIN 300 MG SUPP PR SCH (08:20)
[2024-02-08] MEDS: BISACODYL 5MG TAB PO SCH (09:00)
[2024-02-08] MEDS ORDERED: CIPROFLOXACIN 200 MG in IV 1 EA IV SCH (09:00)
[2024-02-08] MEDS ORDERED: LIDOCAINE 5% (LIDODERM) PATCH TD PRN (09:35)
[2024-02-08] MEDS: AUGMENTIN 875 MG TAB PO SCH (10:04)
[2024-02-08] MEDS ORDERED: ACETAMINOPHEN 500 MG TAB PO PRN (10:30)
[2024-02-08] MEDS: ISOSORBIDE MON. (IMDUR) 60MG XR TAB PO SCH (11:13)
[2024-02-08] MEDS: INSULIN LISPRO (NovoLOG) PER UNIT SC SCH ×3 (11:47→20:35)
[2024-02-08] MEDS: ONDANSETRON 4MG TAB PO ONE (12:42)
[2024-02-08 14:00] VITALS: BP 117/56; TEMP 97.9; O2SAT 89
[2024-02-08] MEDS: MORPHINE 30 MG TAB **MSIR PO PRN (15:08)
[2024-02-08 21:16] VITALS: BP 117/56; TEMP 97.9; O2SAT 91
[2024-02-08] MEDS: MORPHINE 30 MG TAB **MSIR PO SCH (21:54)
[2024-02-08] MEDS: SIMVASTATIN 20 MG TAB PO SCH (21:54)
[2024-02-09 06:00] VITALS: BP 130/53; TEMP 97.9; O2SAT 92
[2024-02-09 08:00] VITALS: BP 107/58; TEMP 97.7; O2SAT 91
[2024-02-09 10:09] VITALS: BP 107/58
[2024-02-09] MEDS ORDERED: MIRA3350 PO (10:56)
[2024-02-09] MEDS ORDERED: SENO8.6T5 PO (10:56)
[2024-02-09] MEDS ORDERED: AMOX875T2 PO (10:56)
[2024-02-09] MEDS ORDERED: OXYC1TAB23 PO (11:08)
[2024-02-09 14:30] VITALS: BP 112/55; TEMP 97.7; O2SAT 87
== END 2024-02-09 16:16 | disposition home or self-care (01) | DRG 392 ==
LOC: M ED 16:16 → M ED INP 22:27 → ENRESERV 23:03 → M MSPAV 23:58
PROVIDERS: ADMIT Internal Medicine; ATTEND Student in an Organized Health Care Education/Training Program
DX: K57.92 Diverticulitis of intestine, part unspecified, without perforation or abscess without bleeding (principal); I50.32 Chronic diastolic (congestive) heart failure; I13.0 Hypertensive heart and chronic kidney disease with heart failure and stage 1 through stage 4 chronic kidney disease, or unspecified chronic kidney disease; J96.11 Chronic respiratory failure with hypoxia; I25.10 Atherosclerotic heart disease of native coronary artery without angina pectoris; E11.22 Type 2 diabetes mellitus with diabetic chronic kidney disease; E11.51 Type 2 diabetes mellitus with diabetic peripheral angiopathy without gangrene; N40.1 Benign prostatic hyperplasia with lower urinary tract symptoms; K21.9 Gastro-esophageal reflux disease without esophagitis; E78.5 Hyperlipidemia, unspecified; G89.4 Chronic pain syndrome; E11.40 Type 2 diabetes mellitus with diabetic neuropathy, unspecified; R39.11 Hesitancy of micturition; M54.9 Dorsalgia, unspecified; N18.9 Chronic kidney disease, unspecified; Z79.82 Long term (current) use of aspirin; Z79.84 Long term (current) use of oral hypoglycemic drugs; Z79.4 Long term (current) use of insulin; Z79.899 Other long term (current) drug therapy; Z95.5 Presence of coronary angioplasty implant and graft; Z89.422 Acquired absence of other left toe(s); Z99.81 Dependence on supplemental oxygen; Z79.891 Long term (current) use of opiate analgesic; Z90.49 Acquired absence of other specified parts of digestive tract; Z96.659 Presence of unspecified artificial knee joint

== ENCOUNTER → 2024-02-23 | Outpatient (CLI) | payer MEDICARE ==
[~2024-02-23] MED LIST changes: +AMOX875T2 PO; +MIRA3350 PO; +OXYC1TAB23 PO; +SENO8.6T5 PO
== END ==
LOC: M WUC 10:53
PROVIDERS: ATTEND Physician Assistant
DX: M17.12 Unilateral primary osteoarthritis, left knee (principal)

== ENCOUNTER → 2024-04-06 | Outpatient (CLI) | payer MEDICARE ==
[2024-04-06 18:41] LABS: BASO # 0.1 10^3/uL (0.0-0.2); BASO % 0.9 % (0.0-1.0); EOS # 0.6 10^3/uL (0.0-0.5); EOS % 5.1 % (0.0-3.0); HEMATOCRIT 42.1 % (42.0-52.0); HEMOGLOBIN 12.7 g/dl (13.5-17.5); LYMPH # 1.3 10^3/uL (1.5-5.0); LYMPH % 12.2 % (24.0-44.0); MEAN CORPUSCULAR HEMOGLOBIN 29.3 pg (27.0-33.0); MEAN CORPUSCULAR HGB CONC 30.2 g/dl (32.0-36.5); MONO # 0.9 10^3/uL (0.0-0.8); MONO % 8.6 % (2.0-8.0); NEUTROPHILS # 7.9 10^3/uL (1.5-8.5); NEUTROPHILS % 72.7 % (36.0-66.0); PLATELET COUNT, AUTOMATED 378 10^3/uL (150-450); RED BLOOD COUNT 4.34 10^6/uL (4.30-6.10); WHITE BLOOD COUNT 10.9 10^3/uL (4.0-10.0)
[2024-04-06 18:57] LABS: HEMOGLOBIN A1c 7.7 % (4.0-6.0)
[2024-04-06 19:05] LABS: CHOLESTEROL RISK RATIO 2.48 (<5); HDL CHOLESTEROL 45.8 MG/DL (>40); LDL CHOLESTEROL 45.8 MG/DL (<100); NON-HDL-C 68.2 MG/DL
[2024-04-06 19:08] LABS: THYROID STIMULATING HORMONE 1.078 uIU/ML (0.55-4.78)
== END ==
LOC: M WUC 14:32
PROVIDERS: ATTEND Physician Assistant
DX: D64.9 Anemia, unspecified (principal); I10 Essential (primary) hypertension

== ENCOUNTER → 2024-06-06 | Outpatient (CLI) | payer MEDICARE | LOC: M RAD 11:01 | PROVIDERS: ATTEND Internal Medicine Pulmonary Disease | DX: R91.8 Other nonspecific abnormal finding of lung field (principal); J18.9 Pneumonia, unspecified organism; A31.0 Pulmonary mycobacterial infection ==

== ENCOUNTER → 2024-06-06 | Outpatient (CLI) | payer MEDICARE ==
[2024-06-06 13:31] LABS: BASO # 0.1 10^3/uL (0.0-0.2); BASO % 1.5 % (0.0-1.0); EOS # 0.7 10^3/uL (0.0-0.5); EOS % 8.5 % (0.0-3.0); HEMATOCRIT 42.3 % (42.0-52.0); HEMOGLOBIN 13.1 g/dl (13.5-17.5); LYMPH # 1.6 10^3/uL (1.5-5.0); MEAN CORPUSCULAR HEMOGLOBIN 28.5 pg (27.0-33.0); MEAN CORPUSCULAR VOLUME 92.2 fl (80.0-96.0); MONO # 0.9 10^3/uL (0.0-0.8); MONO % 10.6 % (2.0-8.0); NEUTROPHILS # 5.1 10^3/uL (1.5-8.5); NEUTROPHILS % 59.7 % (36.0-66.0); PLATELET COUNT, AUTOMATED 349 10^3/uL (150-450); RED BLOOD COUNT 4.59 10^6/uL (4.30-6.10); WHITE BLOOD COUNT 8.5 10^3/uL (4.0-10.0)
[2024-06-06 13:36] LABS: ERYTHROCYTE SEDIMENTATION RATE 37 mm/hr (0-20)
[2024-06-06 14:01] LABS: ALKALINE PHOSPHATASE 127 U/L (46-116); ALT/SGPT 12 U/L (7.0-40); AST/SGOT 13 U/L (<34); BILIRUBIN,TOTAL 0.3 MG/DL (0.3-1.2); BLOOD UREA NITROGEN 24 MG/DL (9-23); CALCIUM LEVEL 8.9 MG/DL (8.3-10.6); CARBON DIOXIDE LEVEL 34 MMOL/L (20-31); CHLORIDE LEVEL 101 MMOL/L (98-107); GLOMERULAR FILTRATION RATE 51.7 (>35); GLUCOSE, FASTING 88 MG/DL (74-106); POTASSIUM SERUM 5.1 MMOL/L (3.5-5.1); SODIUM LEVEL 139 MMOL/L (136-145)
[2024-06-06 14:02] LABS: IMMUNOGLOBULIN A 313.1 MG/DL (40-350); IMMUNOGLOBULIN G 1764 MG/DL (650-1600)
== END ==
LOC: M PLALAB 11:36
PROVIDERS: ATTEND Internal Medicine Infectious Disease
DX: J18.9 Pneumonia, unspecified organism (principal); A31.0 Pulmonary mycobacterial infection

== ENCOUNTER → 2024-06-17 | Outpatient (CLI) | payer MEDICARE ==
[~2024-06-17] MED LIST changes: +LATA1DRO
== END ==
LOC: M WUC 15:12
PROVIDERS: ATTEND Nurse Practitioner Family
DX: M25.572 Pain in left ankle and joints of left foot (principal)

== ENCOUNTER 2024-06-23 16:08 | Emergency (ER) | payer MEDICARE ==
[~2024-06-23 16:08] MED LIST changes: -LATA1DRO
[2024-06-23] MEDS ORDERED: LATA1DRO (17:19)
[2024-06-23] MEDS: PATIROMER SORBITEX CALCIUM 8.4 GM POWDER PACKET (VELTASSA) PO ONE (17:55)
[2024-06-23 18:00] LABS: BASO # 0.1 10^3/uL (0.0-0.2); EOS # 0.9 10^3/uL (0.0-0.5); EOS % 8.1 % (0.0-3.0); HEMATOCRIT 39.5 % (42.0-52.0); HEMOGLOBIN 12.3 g/dl (13.5-17.5); LYMPH # 1.4 10^3/uL (1.5-5.0); LYMPH % 13.4 % (24.0-44.0); MEAN CORPUSCULAR HEMOGLOBIN 28.7 pg (27.0-33.0); MEAN CORPUSCULAR HGB CONC 31.1 g/dl (32.0-36.5); MEAN CORPUSCULAR VOLUME 92.1 fl (80.0-96.0); MONO # 1.1 10^3/uL (0.0-0.8); MONO % 10.7 % (2.0-8.0); NEUTROPHILS % 66.3 % (36.0-66.0); PLATELET COUNT, AUTOMATED 386 10^3/uL (150-450); RED BLOOD COUNT 4.29 10^6/uL (4.30-6.10); WHITE BLOOD COUNT 10.6 10^3/uL (4.0-10.0)
[2024-06-23 18:15] LABS: INR 1.08; PARTIAL THROMBOPLASTIN TIME 27.7 SECONDS (24.8-34.2); PROTHROMBIN TIME 13.7 SECONDS (12.5-14.5)
[2024-06-23 18:29] LABS: ALBUMIN 2.9 G/DL (3.2-5.2); BILIRUBIN,DIRECT 0.1 MG/DL (<0.4); BILIRUBIN,TOTAL 0.3 MG/DL (0.3-1.2); CALCIUM LEVEL 8.8 MG/DL (8.3-10.6); CK-MB VALUE MASS 1.8 NG/ML (<3.6); CREATININE FOR GFR 1.73 MG/DL (0.70-1.30); GLOMERULAR FILTRATION RATE 40.4 (>35); POTASSIUM SERUM 5.9 MMOL/L (3.5-5.1); TOTAL PROTEIN 6.8 G/DL (5.7-8.2)
[2024-06-23 18:32] LABS: MB/CK RELATIVE INDEX 3.27 (< OR =4)
[2024-06-23 20:25] LABS: VENOUS BASE EXCESS 4.4 (-2.0-2.0); VENOUS O2 SATURATION 67.7 % (60.0-80.0); VENOUS PARTIAL PRESSURE CO2 55.1 mmHg (38.0-50.0); VENOUS PARTIAL PRESSURE O2 34.7 mmHg (30.0-50.0); VENOUS PH 7.368 UNITS (7.330-7.430); VENOUS STANDARD HCO3 27.7 MMOL/L; VENOUS TOTAL CO2 32.7 MMOL/L (24.0-28.0)
[2024-06-23] MEDS: NS 1,000 ML IV ONE (21:35)
[2024-06-24 01:36] VITALS: BP 128/72; TEMP 98.4; O2SAT 96
== END 2024-06-24 01:47 | disposition home or self-care (01) ==
LOC: M ED 16:08
DX: E87.5 Hyperkalemia (principal); N18.9 Chronic kidney disease, unspecified; R00.1 Bradycardia, unspecified; I44.7 Left bundle-branch block, unspecified; E11.9 Type 2 diabetes mellitus without complications; I11.0 Hypertensive heart disease with heart failure; E78.5 Hyperlipidemia, unspecified; K21.9 Gastro-esophageal reflux disease without esophagitis; R91.8 Other nonspecific abnormal finding of lung field; Z79.1 Long term (current) use of non-steroidal anti-inflammatories (NSAID); Z79.4 Long term (current) use of insulin; Z79.82 Long term (current) use of aspirin; Z79.899 Other long term (current) drug therapy; Z87.891 Personal history of nicotine dependence
CPT/HCPCS: 36415; 71045; 80047; 80048; 80076; 82550; 82553; 82803; 83880; 84132; 84484; 85025; 85610; 85730; 93005; 96360; 99284; G0463

== ENCOUNTER → 2024-06-23 | Outpatient (CLI) | payer MEDICARE ==
[2024-06-23 15:33] LABS: CALCIUM LEVEL 8.9 MG/DL (8.3-10.6); CREATININE FOR GFR 1.71 MG/DL (0.70-1.30); GLOMERULAR FILTRATION RATE 40.9 (>35)
== END ==
LOC: M LAB 14:22
PROVIDERS: ATTEND Physician Assistant
DX: R60.9 Edema, unspecified (principal); I10 Essential (primary) hypertension

== ENCOUNTER 2024-07-21 14:51 | Emergency (ER) | payer MEDICARE ==
[~2024-07-21] VITALS: Ht 175.3 cm; Wt 81.4 kg
[~2024-07-21 14:51] MED LIST changes: +LATA1DRO
[2024-07-21 14:54] VITALS: TEMP 98.5
[2024-07-21 16:30] LABS: BASO # 0.1 10^3/uL (0.0-0.2); EOS # 0.9 10^3/uL (0.0-0.5); EOS % 7.6 % (0.0-3.0); HEMOGLOBIN 11.7 g/dl (13.5-17.5); LYMPH % 8.9 % (24.0-44.0); MEAN CORPUSCULAR HEMOGLOBIN 28.4 pg (27.0-33.0); MEAN CORPUSCULAR HGB CONC 30.8 g/dl (32.0-36.5); MEAN CORPUSCULAR VOLUME 92.2 fl (80.0-96.0); MONO # 1.3 10^3/uL (0.0-0.8); MONO % 11.6 % (2.0-8.0); NEUTROPHILS % 70.1 % (36.0-66.0); PLATELET COUNT, AUTOMATED 438 10^3/uL (150-450); RED BLOOD COUNT 4.12 10^6/uL (4.30-6.10); WHITE BLOOD COUNT 11.4 10^3/uL (4.0-10.0)
[2024-07-21 16:40] LABS: ALBUMIN 2.7 G/DL (3.2-5.2); ALKALINE PHOSPHATASE 128 U/L (46-116); ALT/SGPT < 9 U/L (7.0-40); AST/SGOT 10 U/L (<34); BILIRUBIN,DIRECT 0.1 MG/DL (<0.4); BILIRUBIN,TOTAL 0.3 MG/DL (0.3-1.2); BLOOD UREA NITROGEN 45 MG/DL (9-23); CARBON DIOXIDE LEVEL 31 MMOL/L (20-31); CHLORIDE LEVEL 99 MMOL/L (98-107); CREATININE FOR GFR 2.19 MG/DL (0.70-1.30); GLOMERULAR FILTRATION RATE 30.7 (>35); GLUCOSE, FASTING 169 MG/DL (74-106); POTASSIUM SERUM 5.1 MMOL/L (3.5-5.1); SODIUM LEVEL 134 MMOL/L (136-145); TOTAL PROTEIN 6.9 G/DL (5.7-8.2)
[2024-07-21] MEDS: NS 500 ML IV ONE (16:53)
[2024-07-21 17:30] VITALS: BP 169/72
[2024-07-21] MEDS: cefTRIAXone SOD 1 GM in D5W MINI-BAG PLUS 50 ML IV ONE (17:35)
[2024-07-21] MEDS ORDERED: ZITHTAB PO (18:04)
[2024-07-21] MEDS ORDERED: AMOX875T2 PO (18:04)
[2024-07-21 18:25] VITALS: O2SAT 92
[2024-07-21 18:37] VITALS: O2SAT 91
== END 2024-07-21 18:53 | disposition home or self-care (01) ==
LOC: M ED 14:51
DX: J18.9 Pneumonia, unspecified organism (principal); N17.9 Acute kidney failure, unspecified; I50.22 Chronic systolic (congestive) heart failure; N18.9 Chronic kidney disease, unspecified; Z79.1 Long term (current) use of non-steroidal anti-inflammatories (NSAID); Z79.2 Long term (current) use of antibiotics; Z79.4 Long term (current) use of insulin; Z79.899 Other long term (current) drug therapy
CPT/HCPCS: 36415; 71045; 80048; 80076; 85025; 87486; 87581; 87633; 87798; 93005; 93041; 94760; 96360; 96365; 99285; J0696

== ENCOUNTER 2024-08-03 14:16 | Inpatient (IN) | payer MEDICARE ==
[~2024-08-03] VITALS: Ht 170.2 cm; Wt 78.3 kg
[2024-08-03] VITALS (7 sets, daily range): BP systolic 122–138; BP diastolic 77–84; TEMP 98.3–99.2; O2SAT 81–96
[~2024-08-03 14:16] MED LIST changes: +ZITHTAB PO
[2024-08-03] MEDS ORDERED: cefTRIAXone SOD 1 GM in DEXTROSE 5% (D5W) ADV/MINI-BAG 50 ML IV SCH (16:10)
[2024-08-03] MEDS ORDERED: ACETAMINOPHEN 325 MG TAB PO PRN (16:10)
[2024-08-03] MEDS ORDERED: ALBUTEROL SULFATE 2.5MG/0.5ML INH NEB SOLN NEB PRN (16:20)
[2024-08-03 17:12] LABS: HEMATOCRIT 33.6 % (42.0-52.0); HEMOGLOBIN 10.3 g/dl (13.5-17.5); MEAN CORPUSCULAR HEMOGLOBIN 28.6 pg (27.0-33.0); MEAN CORPUSCULAR HGB CONC 30.7 g/dl (32.0-36.5); MEAN CORPUSCULAR VOLUME 93.3 fl (80.0-96.0); PLATELET COUNT, AUTOMATED 373 10^3/uL (150-450); WHITE BLOOD COUNT 15.9 10^3/uL (4.0-10.0)
[2024-08-03] MEDS ORDERED: DEXTROSE 50% 50ML SYRINGE IV PRN (17:15)
[2024-08-03] MEDS ORDERED: GLUCOSE 4 GM CHEW PO PRN (17:15)
[2024-08-03] MEDS ORDERED: GLUCAGON INJ 1MG VIAL SC PRN (17:15)
[2024-08-03 17:25] LABS: INR 1.32; PROTHROMBIN TIME 15.9 SECONDS (12.5-14.5)
[2024-08-03 17:36] LABS: CK-MB VALUE MASS 1.6 NG/ML (<3.6); MB/CK RELATIVE INDEX 3.26 (< OR =4)
[2024-08-03 17:37] LABS: ALBUMIN 2.5 G/DL (3.2-5.2); BILIRUBIN,TOTAL 0.5 MG/DL (0.3-1.2); CALCIUM LEVEL 9.1 MG/DL (8.3-10.6); CREATININE FOR GFR 2.43 MG/DL (0.70-1.30); GLOMERULAR FILTRATION RATE 27.3 (>35); POTASSIUM SERUM 5.5 MMOL/L (3.5-5.1); TOTAL PROTEIN 6.5 G/DL (5.7-8.2)
[2024-08-03 17:45] LABS: PROCALCITONIN 0.3 ng/ml
[2024-08-03] MEDS: INSULIN LISPRO (NovoLOG) PER UNIT SC SCH ×2 (18:35→21:00)
[2024-08-03] MEDS: NS 1,000 ML IV SCH (19:12)
[2024-08-03] MEDS ORDERED: D 10CAP PO (19:41)
[2024-08-03] MEDS ORDERED: BRIN8DRO OU (19:41)
[2024-08-03] MEDS ORDERED: XALA0.007 OU (19:41)
[2024-08-03] MEDS ORDERED: PROB250C PO (19:41)
[2024-08-03] MEDS ORDERED: NOVOINJ13 SC (19:41)
[2024-08-03] MEDS ORDERED: METO25TA PO (19:41)
[2024-08-03] MEDS ORDERED: HOME MED LIST COMPLETE! XX SCH (19:45)
[2024-08-03] MEDS: IPRATROPIUM 0.5MG/ALBUTEROL 2.5MG INH SOL UD 3ML (DUONEB) NEB SCH (20:10)
[2024-08-03] MEDS: TAMSULOSIN 0.4 MG CAP PO SCH (21:00)
[2024-08-03] MEDS: SIMVASTATIN 20 MG TAB PO SCH (21:00)
[2024-08-03] MEDS: SENOKOT S TAB PO SCH (21:00)
[2024-08-03] MEDS: LATANOPROST 0.005% OPHTH SOLN 2.5 ML OU SCH (21:00)
[2024-08-03] MEDS: HEPARIN SOD (PORCINE) 5000UNITS/ML 1ML VIAL/SYRINGE SC SCH (22:05)
[2024-08-03] MEDS: DOXYCYCLINE HYCLATE 100MG TABLET PO SCH (22:05)
[2024-08-03] MEDS: PIPERACILLIN/TAZOBACTAM SOD 3.375 GM in DEXTROSE 5% (D5W) ADV/MINI-BAG 50 ML IV SCH (22:05)
[2024-08-03] MEDS: guaiFENesin ER TABLET 600 MG TAB PO SCH (22:06)
[2024-08-04] VITALS (28 sets, daily range): BP systolic 140–159; BP diastolic 58–86; TEMP 97.1–98.9; O2SAT 88–99
[2024-08-04] MEDS: GABAPENTIN 400MG CAP PO SCH (00:56)
[2024-08-04] MEDS: MORPHINE 30 MG TAB **MSIR PO SCH (00:59)
[2024-08-04 06:35] LABS: HEMATOCRIT 30.6 % (42.0-52.0); HEMOGLOBIN 9.4 g/dl (13.5-17.5); MEAN CORPUSCULAR HEMOGLOBIN 28.5 pg (27.0-33.0); MEAN CORPUSCULAR HGB CONC 30.7 g/dl (32.0-36.5); MEAN CORPUSCULAR VOLUME 92.7 fl (80.0-96.0); PLATELET COUNT, AUTOMATED 339 10^3/uL (150-450); WHITE BLOOD COUNT 11.6 10^3/uL (4.0-10.0)
[2024-08-04 07:00] LABS: ALBUMIN 2.3 G/DL (3.2-5.2); BILIRUBIN,TOTAL 0.6 MG/DL (0.3-1.2); CALCIUM LEVEL 8.6 MG/DL (8.3-10.6); CREATININE FOR GFR 2.2 MG/DL (0.70-1.30); GLOMERULAR FILTRATION RATE 30.6 (>35); TOTAL PROTEIN 5.8 G/DL (5.7-8.2)
[2024-08-04] MEDS: MAGNESIUM OXIDE 400MG TAB (MAG-OX) PO SCH (08:43)
[2024-08-04] MEDS: TIMOLOL MALEATE 0.5% OPHTH SOLN 5 ML OU SCH (08:43)
[2024-08-04] MEDS: PANTOPRAZOLE 40MG TAB (PROTONIX) PO SCH (08:43)
[2024-08-04] MEDS: FINASTERIDE 5MG TAB PO SCH (08:44)
[2024-08-04] MEDS: LACTOBACILLUS ACIDOPHILUS CAP (BACID) PO SCH (08:44)
[2024-08-04] MEDS: ASPIRIN 81MG ENTERIC TABLET PO SCH (08:44)
[2024-08-04] MEDS: UNRESOLVED PATIENT OWN MED ORDER XX SCH (10:14)
[2024-08-04] MEDS: MOVANTIK 25 MG PO SCH (11:50)
[2024-08-04] MEDS: SIMBRINZA OU SCH (11:50)
[2024-08-04] MEDS ORDERED: HumuLIN R (REGULAR) INSULIN (NovoLIN R) **100U/ML** PER UNIT SC SCH ×2 (18:00)
[2024-08-04] MEDS ORDERED: HumuLIN N INSULIN (NovoLIN N) PER UNIT SC SCH ×2 (18:00→21:00)
[2024-08-05] VITALS (40 sets, daily range): BP systolic 137–168; BP diastolic 63–96; TEMP 97.2–97.9; O2SAT 91–100
[2024-08-05 06:18] LABS: HEMATOCRIT 32.6 % (42.0-52.0); MEAN CORPUSCULAR HEMOGLOBIN 28.7 pg (27.0-33.0); MEAN CORPUSCULAR HGB CONC 30.7 g/dl (32.0-36.5); MEAN CORPUSCULAR VOLUME 93.4 fl (80.0-96.0); PLATELET COUNT, AUTOMATED 352 10^3/uL (150-450); RED BLOOD COUNT 3.49 10^6/uL (4.30-6.10); WHITE BLOOD COUNT 9.4 10^3/uL (4.0-10.0)
[2024-08-05 06:54] LABS: ALBUMIN 2.2 G/DL (3.2-5.2); BILIRUBIN,TOTAL 0.6 MG/DL (0.3-1.2); CALCIUM LEVEL 9.5 MG/DL (8.3-10.6); CREATININE FOR GFR 2.02 MG/DL (0.70-1.30); GLOMERULAR FILTRATION RATE 33.7 (>35); POTASSIUM SERUM 4.9 MMOL/L (3.5-5.1); TOTAL PROTEIN 5.9 G/DL (5.7-8.2)
[2024-08-05 06:56] LABS: FOLATE 9.37 NG/ML (>5.4)
[2024-08-05 06:57] LABS: FERRITIN 365.9 NG/ML (10.5-307.3); PERCENT SATURATION 17.2 % (19.7-50.0)
[2024-08-05] MEDS ORDERED: fentaNYL 100 MCG/2 ML INJECTION IV PRN (08:20)
[2024-08-05] MEDS ORDERED: ETOMIDATE INJ 20MG/10ML VIAL As Ordered ONE (12:47)
[2024-08-05] MEDS ORDERED: fentaNYL 100 MCG/2 ML INJECTION As Ordered ONE (12:47)
[2024-08-05] MEDS ORDERED: ROCURONIUM BROMIDE 50MG/5ML VIAL As Ordered ONE (12:47)
[2024-08-05] MEDS ORDERED: LIDOCAINE 2% 100MG/5ML SDV (FOR ANES.) As Ordered ONE (12:47)
[2024-08-05] MEDS ORDERED: ONDANSETRON 4MG 2ML VIAL As Ordered ONE (12:47)
[2024-08-05] MEDS ORDERED: SUGAMMADEX SODIUM 500 MG/5 ML VIAL (BRIDION) As Ordered ONE (12:49)
[2024-08-05] MEDS: THROMBIN 5,000 UNITS VIAL As Ordered ONE (12:53)
[2024-08-05] MEDS: LIDOCAINE 1% SDV 30ML VIAL As Ordered ONE (12:54)
[2024-08-05] MEDS: EPINEPHrine 1MG/10ML SYRINGE 1.5IN As Ordered ONE (12:54)
[2024-08-05] MEDS ORDERED: propofoL 200 MG/20 ML VIAL As Ordered ONE (13:22)
[2024-08-05] MEDS: CETACAINE SPRAY 5GM As Ordered ONE (13:45)
[2024-08-05] MEDS ORDERED: ePHEDrine SULFATE 25 MG/5 ML(5MG/ML) SYRINGE As Ordered ONE (13:56)
[2024-08-05] MEDS: LR 1,000 ML IV SCH (14:35)
[2024-08-05] MEDS ORDERED: oxyCODONE 5MG TAB PO PRN (14:35)
[2024-08-05] MEDS ORDERED: ONDANSETRON 4MG 2ML VIAL IV PRN (14:35)
[2024-08-05] MEDS: FERRIC CARBOXYMALTOSE INJ 750 MG, VIAL MATE ADAPTER 1 EACH in NS 100 ML IV ONE (15:00)
[2024-08-06] VITALS (10 sets, daily range): BP systolic 150–166; BP diastolic 68–74; TEMP 97.4–97.6; O2SAT 92–99
[2024-08-06 05:48] LABS: HEMATOCRIT 35.8 % (42.0-52.0); HEMOGLOBIN 10.8 g/dl (13.5-17.5); MEAN CORPUSCULAR HEMOGLOBIN 28.1 pg (27.0-33.0); MEAN CORPUSCULAR HGB CONC 30.2 g/dl (32.0-36.5); MEAN CORPUSCULAR VOLUME 93.2 fl (80.0-96.0); PLATELET COUNT, AUTOMATED 372 10^3/uL (150-450); RED BLOOD COUNT 3.84 10^6/uL (4.30-6.10); WHITE BLOOD COUNT 8.9 10^3/uL (4.0-10.0)
[2024-08-06 06:06] LABS: ALBUMIN 2.2 G/DL (3.2-5.2); BILIRUBIN,TOTAL 0.5 MG/DL (0.3-1.2); CALCIUM LEVEL 9.6 MG/DL (8.3-10.6); CREATININE FOR GFR 1.86 MG/DL (0.70-1.30); GLOMERULAR FILTRATION RATE 37.1 (>35); TOTAL PROTEIN 6.1 G/DL (5.7-8.2)
[2024-08-06] MEDS: LEVEMIR (INSULIN DETEMIR) 1 UNITS/0.01ML SC STA (06:38)
[2024-08-06 06:41] LABS: HEMOGLOBIN A1c 7.3 % (4.0-6.0)
[2024-08-06] MEDS ORDERED: RISATAB3 PO (08:01)
[2024-08-06] MEDS ORDERED: LEVO1TAB39 PO (08:01)
[2024-08-06] MEDS ORDERED: COLA100C5 PO (17:17)
[2024-08-06] MEDS ORDERED: FERR325T3 PO (17:17)
[2024-08-06] MEDS ORDERED: NOVOINJ13 SC (18:27)
[2024-08-15 07:43] LABS: BF ADENOVIRUS(ADV) BY PCR NEGATIVE (NEGATIVE)
[2024-08-15 07:44] LABS: BF CYTOMEGALOVIRUS(CMV) BY PCR NEGATIVE (NEGATIVE)
[2024-08-15 07:44] LABS: BF ADENOVIRUS(ADV) BY PCR NEGATIVE (NEGATIVE); BF CYTOMEGALOVIRUS(CMV) BY PCR NEGATIVE (NEGATIVE)
== END 2024-08-06 14:40 | disposition home or self-care (01) | DRG 167 ==
LOC: M PCU 14:52
PROVIDERS: ADMIT Internal Medicine; ATTEND Internal Medicine
PROC: B246ZZZ Ultrasonography of Right and Left Heart (ICD-10-PCS; 2024-08-04)
PROC: 0B9F8ZX Drainage of Right Lower Lung Lobe, Via Natural or Artificial Opening Endoscopic, Diagnostic (ICD-10-PCS; 2024-08-05)
PROC: 0B9D8ZX Drainage of Right Middle Lung Lobe, Via Natural or Artificial Opening Endoscopic, Diagnostic (ICD-10-PCS; 2024-08-05)
PROC: 0BBD8ZX Excision of Right Middle Lung Lobe, Via Natural or Artificial Opening Endoscopic, Diagnostic (ICD-10-PCS; principal; 2024-08-05 09:00)
DX: J84.116 Cryptogenic organizing pneumonia (principal); I13.0 Hypertensive heart and chronic kidney disease with heart failure and stage 1 through stage 4 chronic kidney disease, or unspecified chronic kidney disease; I50.32 Chronic diastolic (congestive) heart failure; N17.9 Acute kidney failure, unspecified; R09.02 Hypoxemia; I25.10 Atherosclerotic heart disease of native coronary artery without angina pectoris; E11.40 Type 2 diabetes mellitus with diabetic neuropathy, unspecified; E78.5 Hyperlipidemia, unspecified; E11.22 Type 2 diabetes mellitus with diabetic chronic kidney disease; E11.51 Type 2 diabetes mellitus with diabetic peripheral angiopathy without gangrene; N18.30 Chronic kidney disease, stage 3 unspecified; D50.9 Iron deficiency anemia, unspecified; E87.5 Hyperkalemia; I44.7 Left bundle-branch block, unspecified; I95.1 Orthostatic hypotension; K59.09 Other constipation; K21.9 Gastro-esophageal reflux disease without esophagitis; G31.84 Mild cognitive impairment of uncertain or unknown etiology; Z95.5 Presence of coronary angioplasty implant and graft; Z96.651 Presence of right artificial knee joint; Z89.422 Acquired absence of other left toe(s); Z90.49 Acquired absence of other specified parts of digestive tract; Z98.41 Cataract extraction status, right eye; Z98.42 Cataract extraction status, left eye; Z79.82 Long term (current) use of aspirin; Z79.4 Long term (current) use of insulin; Z79.899 Other long term (current) drug therapy; Z87.891 Personal history of nicotine dependence

== ENCOUNTER 2024-08-08 08:32 | Emergency (ER) | payer MEDICARE ==
[~2024-08-08] VITALS: Ht 175.3 cm; Wt 84.4 kg
[~2024-08-08 08:32] MED LIST changes: +BRIN8DRO OU; +COLA100C5 PO; +D 10CAP PO; +FERR325T3 PO; +LEVO1TAB39 PO; +METO25TA PO; +NOVOINJ13 SC; +PROB250C PO; +XALA0.007 OU
[2024-08-08 09:41] LABS: APPEARANCE, URINE CLEAR (CLEAR); BACTERIA, URINE AUTO NEGATIVE (NEGATIVE); BILIRUBIN, URINE AUTO NEGATIVE (NEGATIVE); BLOOD, URINE BLOOD NEGATIVE (NEGATIVE); COLOR, URINE YELLOW (YELLOW); GLUCOSE, URINE (UA) AUTO NEGATIVE (NEGATIVE); KETONE, URINE AUTO NEGATIVE (NEGATIVE); LEUKOCYTE ESTERASE, URINE AUTO NEGATIVE (NEGATIVE); MUCUS, URINE SMALL (NEGATIVE); NITRITE, URINE AUTO NEGATIVE (NEGATIVE); PROTEIN, URINE AUTO NEGATIVE (NEGATIVE); RBC, URINE AUTO 0 /HPF (0-3); SQUAMOUS EPITHELIAL CELL UR AU 0 /HPF (0-6); UROBILINOGEN, URINE AUTO 0.2 mg/dL (0.0-2.0); WBC, URINE AUTO 1 /HPF (0-3)
[2024-08-08 10:59] LABS: BASO # 0.1 10^3/uL (0.0-0.2); BASO % 0.9 % (0.0-1.0); EOS # 0.6 10^3/uL (0.0-0.5); EOS % 4.5 % (0.0-3.0); HEMATOCRIT 39.5 % (42.0-52.0); HEMOGLOBIN 12.1 g/dl (13.5-17.5); LYMPH # 0.8 10^3/uL (1.5-5.0); MEAN CORPUSCULAR HEMOGLOBIN 28.7 pg (27.0-33.0); MEAN CORPUSCULAR HGB CONC 30.6 g/dl (32.0-36.5); MEAN CORPUSCULAR VOLUME 93.6 fl (80.0-96.0); MONO # 1.2 10^3/uL (0.0-0.8); NEUTROPHILS # 10.4 10^3/uL (1.5-8.5); NEUTROPHILS % 78.7 % (36.0-66.0); PLATELET COUNT, AUTOMATED 423 10^3/uL (150-450); RED BLOOD COUNT 4.22 10^6/uL (4.30-6.10); WHITE BLOOD COUNT 13.2 10^3/uL (4.0-10.0)
[2024-08-08] MEDS: MAGNESIUM CITRATE 300ML BTL PO ONE (18:45)
[2024-08-08 18:56] VITALS: BP 120/65; TEMP 97; O2SAT 96
== END 2024-08-08 19:20 | disposition home or self-care (01) ==
LOC: M ED 08:32
DX: K59.00 Constipation, unspecified (principal); R33.9 Retention of urine, unspecified; E11.9 Type 2 diabetes mellitus without complications; I11.0 Hypertensive heart disease with heart failure; N18.30 Chronic kidney disease, stage 3 unspecified; I50.22 Chronic systolic (congestive) heart failure; Z79.1 Long term (current) use of non-steroidal anti-inflammatories (NSAID); Z79.4 Long term (current) use of insulin; Z79.899 Other long term (current) drug therapy

== ENCOUNTER → 2024-08-11 | Outpatient (CLI) | payer MEDICARE ==
[2024-08-11 18:29] LABS: CALCIUM LEVEL 9.8 MG/DL (8.3-10.6); CREATININE FOR GFR 1.79 MG/DL (0.70-1.30); GLOMERULAR FILTRATION RATE 38.8 (>35); MAGNESIUM LEVEL 3.2 MG/DL (1.8-2.4); PHOSPHORUS LEVEL 3.8 MG/DL (2.4-5.1); POTASSIUM SERUM 4.7 MMOL/L (3.5-5.1)
== END ==
LOC: M WUC 14:13
PROVIDERS: ATTEND Physician Assistant Medical
DX: N17.9 Acute kidney failure, unspecified (principal); I25.10 Atherosclerotic heart disease of native coronary artery without angina pectoris

== ENCOUNTER → 2024-09-09 | Outpatient (CLI) | payer MEDICARE ==
[~2024-09-09] MED LIST changes: -GOOD8.6T2 PO; -LEVO750T14 PO; +LEVO75TAB PO; +SENN-117 PO
[2024-09-09 17:49] LABS: FERRITIN 467.5 NG/ML (10.5-307.3)
[2024-09-09 17:51] LABS: FOLATE 10.35 NG/ML (>5.4)
[2024-09-09 17:52] LABS: PERCENT SATURATION 36.9 % (19.7-50.0)
== END ==
LOC: M WUC 11:15
PROVIDERS: ATTEND Physician Assistant
DX: D64.9 Anemia, unspecified (principal)

== ENCOUNTER → 2024-09-21 | Outpatient (CLI) | payer MEDICARE ==
[2024-09-21 14:08] LABS: HEMOGLOBIN A1c 6.6 % (4.0-6.0)
== END ==
LOC: M LAB 12:54
PROVIDERS: ATTEND Orthopaedic Surgery
DX: E11.9 Type 2 diabetes mellitus without complications (principal)

== ENCOUNTER 2024-09-25 12:54 | Inpatient (IN) | payer MEDICARE ==
[~2024-09-25] VITALS: Ht 175.3 cm; Wt 80.5 kg
[2024-09-25] MEDS: ACETAMINOPHEN 325 MG TAB PO ONE (14:00)
[2024-09-25 14:24] LABS: BASO # 0.1 10^3/uL (0.0-0.2); BASO % 0.5 % (0.0-1.0); EOS # 0.3 10^3/uL (0.0-0.5); EOS % 2.3 % (0.0-3.0); HEMATOCRIT 38.4 % (42.0-52.0); HEMOGLOBIN 11.9 g/dl (13.5-17.5); LYMPH # 0.5 10^3/uL (1.5-5.0); LYMPH % 3.9 % (24.0-44.0); MEAN CORPUSCULAR HEMOGLOBIN 29.8 pg (27.0-33.0); MONO % 7.2 % (2.0-8.0); NEUTROPHILS # 11.7 10^3/uL (1.5-8.5); NEUTROPHILS % 85.7 % (36.0-66.0); PLATELET COUNT, AUTOMATED 274 10^3/uL (150-450); WHITE BLOOD COUNT 13.6 10^3/uL (4.0-10.0)
[2024-09-25] MEDS: CEFEPIME HCL 2 GM in DEXTROSE 5% (D5W) ADV/MINI-BAG 50 ML IV ONE (14:38)
[2024-09-25 14:48] LABS: CK-MB VALUE MASS 1.1 NG/ML (<3.6)
[2024-09-25 14:52] LABS: ALBUMIN 2.6 G/DL (3.2-5.2); BILIRUBIN,DIRECT 0.2 MG/DL (<0.4); BILIRUBIN,TOTAL 0.6 MG/DL (0.3-1.2); CALCIUM LEVEL 8.8 MG/DL (8.3-10.6); CREATININE FOR GFR 1.8 MG/DL (0.70-1.30); GLOMERULAR FILTRATION RATE 38.6 (>35); POTASSIUM SERUM 5.6 MMOL/L (3.5-5.1); THYROID STIMULATING HORMONE 0.746 uIU/ML (0.55-4.78); TOTAL PROTEIN 6.5 G/DL (5.7-8.2)
[2024-09-25 14:54] LABS: FREE T4 1.01 NG/DL (0.89-1.76)
[2024-09-25] MEDS: HumuLIN R (REGULAR) INSULIN (NovoLIN R) **100U/ML** PER UNIT IV ONE (14:55)
[2024-09-25 14:58] LABS: MB/CK RELATIVE INDEX 2.97 (< OR =4)
[2024-09-25] MEDS: CALCIUM GLUCONATE 1,000 MG in DEXTROSE 5% (D5W) MINI-BAG PLU 100 ML IV ONE (15:24)
[2024-09-25] MEDS: DEXTROSE 50% 50ML SYRINGE IV STA (15:25)
[2024-09-25] MEDS ORDERED: DEXTROSE 50% 50ML SYRINGE IV PRN (17:00)
[2024-09-25] MEDS ORDERED: GLUCAGON INJ 1MG VIAL SC PRN (17:00)
[2024-09-25] MEDS ORDERED: GLUCOSE 4 GM CHEW PO PRN (17:00)
[2024-09-25] MEDS: PIPERACILLIN/TAZOBACTAM SOD 3.375 GM in DEXTROSE 5% (D5W) ADV/MINI-BAG 50 ML IV SCH (17:31)
[2024-09-25] MEDS: NS 1,000 ML IV ONE (17:31)
[2024-09-25] MEDS: PATIROMER SORBITEX CALCIUM 8.4 GM POWDER PACKET (VELTASSA) PO ONE (17:31)
[2024-09-25] MEDS: INSULIN LISPRO (NovoLOG) PER UNIT SC SCH ×2 (17:57→21:00)
[2024-09-25] MEDS ORDERED: FERR1TAB8 PO (18:20)
[2024-09-25] MEDS ORDERED: INSU100I12 SUBQ (18:20)
[2024-09-25] MEDS ORDERED: INSU100I14 SUBQ (18:21)
[2024-09-25] MEDS ORDERED: RISATAB3 PO (18:26)
[2024-09-25] MEDS ORDERED: SENN-187 PO (18:26)
[2024-09-25] MEDS ORDERED: HOME MED LIST COMPLETE! XX SCH (18:30)
[2024-09-25 19:34] LABS: PROCALCITONIN 0.3 ng/ml
[2024-09-25] MEDS: LATANOPROST 0.005% OPHTH SOLN 2.5 ML OU SCH (21:00)
[2024-09-25] MEDS: SENNA 8.6 MG TAB (SENOKOT) PO SCH (21:10)
[2024-09-25] MEDS: TAMSULOSIN 0.4 MG CAP PO SCH (21:11)
[2024-09-25] MEDS: SIMVASTATIN 20 MG TAB PO SCH (21:11)
[2024-09-25] MEDS: MORPHINE SULFATE TAB IMM. REL. 30 MG PO SCH (21:12)
[2024-09-25] MEDS: DOXYCYCLINE HYCLATE 100MG TABLET PO SCH (21:12)
[2024-09-25] MEDS: DOCUSATE SODIUM 100MG CAPSULE PO SCH (21:12)
[2024-09-25] MEDS: HEPARIN SOD (PORCINE) 5000UNITS/ML 1ML VIAL/SYRINGE SQ SCH (21:17)
[2024-09-26] MEDS: ACETAMINOPHEN 325 MG TAB PO PRN (00:59)
[2024-09-26 07:05] LABS: HEMOGLOBIN 10.7 g/dl (13.5-17.5); MEAN CORPUSCULAR HEMOGLOBIN 29.6 pg (27.0-33.0); MEAN CORPUSCULAR HGB CONC 31.5 g/dl (32.0-36.5); MEAN CORPUSCULAR VOLUME 94.2 fl (80.0-96.0); PLATELET COUNT, AUTOMATED 237 10^3/uL (150-450); RED BLOOD COUNT 3.61 10^6/uL (4.30-6.10); WHITE BLOOD COUNT 9.2 10^3/uL (4.0-10.0)
[2024-09-26 07:37] LABS: CALCIUM LEVEL 8.6 MG/DL (8.3-10.6); CREATININE FOR GFR 1.65 MG/DL (0.70-1.30); GLOMERULAR FILTRATION RATE 42.6 (>35); POTASSIUM SERUM 4.9 MMOL/L (3.5-5.1)
[2024-09-26] MEDS: FERROUS SULFATE 325MG TAB PO SCH (09:20)
[2024-09-26] MEDS: PANTOPRAZOLE 40MG TAB (PROTONIX) PO SCH (09:20)
[2024-09-26] MEDS: FINASTERIDE 5MG TAB PO SCH (09:20)
[2024-09-26] MEDS: ASPIRIN 81MG ENTERIC TABLET PO SCH (09:20)
[2024-09-26] MEDS: TORSEMIDE 20 MG TAB PO SCH (10:00)
[2024-09-26 10:26] VITALS: BP 156/79; TEMP 97.1; O2SAT 95
[2024-09-26 12:00] VITALS: BP 129/99; TEMP 97.5; O2SAT 95
[2024-09-26 16:00] VITALS: BP 163/71; TEMP 98.3; O2SAT 96
[2024-09-26] MEDS: HumuLIN N INSULIN (NovoLIN N) PER UNIT SC SCH (17:40)
[2024-09-26] MEDS: **hydrALAZINE HCL** 25 MG TAB PO PRN (18:43)
[2024-09-26 19:29] VITALS: BP 169/77; TEMP 97.5; O2SAT 95
[2024-09-26] MEDS: GABAPENTIN 400MG CAP PO ONE (22:05)
[2024-09-26 22:30] VITALS: BP 154/78
[2024-09-27 00:04] VITALS: BP 152/68; TEMP 98.4; O2SAT 97
[2024-09-27 03:37] VITALS: BP 167/77; TEMP 97.7; O2SAT 97
[2024-09-27 04:52] LABS: BASO # 0.1 10^3/uL (0.0-0.2); BASO % 1.3 % (0.0-1.0); EOS # 0.9 10^3/uL (0.0-0.5); EOS % 10.3 % (0.0-3.0); HEMATOCRIT 36.9 % (42.0-52.0); HEMOGLOBIN 11.2 g/dl (13.5-17.5); LYMPH # 1.4 10^3/uL (1.5-5.0); LYMPH % 16.1 % (24.0-44.0); MEAN CORPUSCULAR HEMOGLOBIN 28.6 pg (27.0-33.0); MEAN CORPUSCULAR HGB CONC 30.4 g/dl (32.0-36.5); MEAN CORPUSCULAR VOLUME 94.4 fl (80.0-96.0); MONO % 11.1 % (2.0-8.0); NEUTROPHILS # 5.2 10^3/uL (1.5-8.5); NEUTROPHILS % 60.7 % (36.0-66.0); PLATELET COUNT, AUTOMATED 266 10^3/uL (150-450); RED BLOOD COUNT 3.91 10^6/uL (4.30-6.10); WHITE BLOOD COUNT 8.6 10^3/uL (4.0-10.0)
[2024-09-27 05:08] LABS: CALCIUM LEVEL 9.3 MG/DL (8.3-10.6); CREATININE FOR GFR 1.73 MG/DL (0.70-1.30); GLOMERULAR FILTRATION RATE 40.4 (>35); POTASSIUM SERUM 4.6 MMOL/L (3.5-5.1)
[2024-09-27 06:16] VITALS: BP 171/74
[2024-09-27 08:00] VITALS: BP 163/72; TEMP 97.4; O2SAT 98
[2024-09-27] MEDS ORDERED: MIRALAX *UNIT DOSE* 17GM PACKET PO PRN (08:25)
[2024-09-27] MEDS ORDERED: LEVO1TAB40 PO (08:30)
[2024-09-27] MEDS ORDERED: AMLO1TAB24 PO (08:30)
[2024-09-27] MEDS: amLODIPine 5 MG TAB PO SCH (08:56)
[2024-09-27] MEDS: LACTOBACILLUS ACIDOPHILUS CAP (BACID) PO SCH (08:57)
[2024-09-27] MEDS: SENOKOT S TAB PO SCH (08:57)
[2024-09-27] MEDS: LevoFLOXacin 750 MG TABLET PO ONE (10:17)
[2024-09-27 11:57] VITALS: BP 163/74; TEMP 97.3; O2SAT 97
[2024-09-27] MEDS: amLODIPine 5 MG TAB PO ONE (12:03)
[2024-09-27 12:24] VITALS: BP 146/66
[2024-09-27] MEDS ORDERED: GABAPENTIN 400MG CAP PO SCH (21:00)
== END 2024-09-27 12:25 | disposition home or self-care (01) | DRG 871 ==
LOC: M ED 12:54 → M ED INP 16:51 → M ICU 09-26 09:40
PROVIDERS: ADMIT Internal Medicine; ATTEND Internal Medicine
DX: A41.9 Sepsis, unspecified organism (principal); J18.9 Pneumonia, unspecified organism; J96.11 Chronic respiratory failure with hypoxia; I50.32 Chronic diastolic (congestive) heart failure; I13.0 Hypertensive heart and chronic kidney disease with heart failure and stage 1 through stage 4 chronic kidney disease, or unspecified chronic kidney disease; N39.0 Urinary tract infection, site not specified; I25.10 Atherosclerotic heart disease of native coronary artery without angina pectoris; I44.7 Left bundle-branch block, unspecified; K59.09 Other constipation; E11.40 Type 2 diabetes mellitus with diabetic neuropathy, unspecified; E78.5 Hyperlipidemia, unspecified; E11.22 Type 2 diabetes mellitus with diabetic chronic kidney disease; H40.9 Unspecified glaucoma; E11.51 Type 2 diabetes mellitus with diabetic peripheral angiopathy without gangrene; N18.30 Chronic kidney disease, stage 3 unspecified; N40.1 Benign prostatic hyperplasia with lower urinary tract symptoms; E87.5 Hyperkalemia; G89.29 Other chronic pain; M54.9 Dorsalgia, unspecified; Z96.651 Presence of right artificial knee joint; Z90.49 Acquired absence of other specified parts of digestive tract; Z89.422 Acquired absence of other left toe(s); Z95.5 Presence of coronary angioplasty implant and graft; Z98.41 Cataract extraction status, right eye; Z98.42 Cataract extraction status, left eye; Z79.82 Long term (current) use of aspirin; Z79.891 Long term (current) use of opiate analgesic; Z79.899 Other long term (current) drug therapy; Z99.81 Dependence on supplemental oxygen; Z79.4 Long term (current) use of insulin

== ENCOUNTER → 2024-10-03 | Outpatient (CLI) | payer MEDICARE ==
[~2024-10-03] MED LIST changes: +FERR1TAB8 PO; +INSU100I12 SUBQ; +INSU100I14 SUBQ; +SENN-187 PO
[2024-10-03 14:33] LABS: BASO # 0.1 10^3/uL (0.0-0.2); EOS # 0.7 10^3/uL (0.0-0.5); EOS % 6.7 % (0.0-3.0); HEMOGLOBIN 11.5 g/dl (13.5-17.5); LYMPH # 1.3 10^3/uL (1.5-5.0); LYMPH % 12.9 % (24.0-44.0); MEAN CORPUSCULAR HEMOGLOBIN 29.6 pg (27.0-33.0); MEAN CORPUSCULAR HGB CONC 31.1 g/dl (32.0-36.5); MEAN CORPUSCULAR VOLUME 95.1 fl (80.0-96.0); MONO % 10.3 % (2.0-8.0); NEUTROPHILS # 6.7 10^3/uL (1.5-8.5); NEUTROPHILS % 68.4 % (36.0-66.0); PLATELET COUNT, AUTOMATED 354 10^3/uL (150-450); RED BLOOD COUNT 3.89 10^6/uL (4.30-6.10); WHITE BLOOD COUNT 9.9 10^3/uL (4.0-10.0)
[2024-10-03 15:00] LABS: ALBUMIN 2.5 G/DL (3.2-5.2); ALKALINE PHOSPHATASE 112 U/L (40-129); ALT/SGPT < 9 U/L (7.0-40); AST/SGOT 9 U/L (<34); BILIRUBIN,TOTAL 0.3 MG/DL (0.3-1.2); BLOOD UREA NITROGEN 33 MG/DL (9-23); CALCIUM LEVEL 9.4 MG/DL (8.3-10.6); CARBON DIOXIDE LEVEL 29 MMOL/L (20-31); CHLORIDE LEVEL 103 MMOL/L (98-107); CREATININE FOR GFR 1.83 MG/DL (0.70-1.30); GLOMERULAR FILTRATION RATE 37.8 (>35); GLUCOSE, FASTING 190 MG/DL (74-106); POTASSIUM SERUM 5.3 MMOL/L (3.5-5.1); SODIUM LEVEL 139 MMOL/L (136-145); TOTAL PROTEIN 6.4 G/DL (5.7-8.2)
== END ==
LOC: M RAD 13:54
PROVIDERS: ATTEND Physician Assistant
DX: S91.302A Unspecified open wound, left foot, initial encounter (principal); W18.30XA Fall on same level, unspecified, initial encounter; Y92.009 Unspecified place in unspecified non-institutional (private) residence as the place of occurrence of the external cause

== ENCOUNTER → 2024-10-06 | Outpatient (CLI) | payer MEDICARE ==
[2024-10-06 11:21] LABS: BASO # 0.1 10^3/uL (0.0-0.2); BASO % 0.8 % (0.0-1.0); EOS # 0.8 10^3/uL (0.0-0.5); EOS % 6.6 % (0.0-3.0); HEMOGLOBIN 11.8 g/dl (13.5-17.5); LYMPH # 1.1 10^3/uL (1.5-5.0); LYMPH % 9.6 % (24.0-44.0); MEAN CORPUSCULAR HEMOGLOBIN 28.6 pg (27.0-33.0); MEAN CORPUSCULAR HGB CONC 30.3 g/dl (32.0-36.5); MEAN CORPUSCULAR VOLUME 94.4 fl (80.0-96.0); MONO % 8.1 % (2.0-8.0); NEUTROPHILS # 8.8 10^3/uL (1.5-8.5); NEUTROPHILS % 74.3 % (36.0-66.0); PLATELET COUNT, AUTOMATED 356 10^3/uL (150-450); RED BLOOD COUNT 4.13 10^6/uL (4.30-6.10); WHITE BLOOD COUNT 11.8 10^3/uL (4.0-10.0)
[2024-10-06 11:42] LABS: ERYTHROCYTE SEDIMENTATION RATE 84 mm/hr (0-20)
[2024-10-07 14:51] LABS: M003-IGE ASPERGILLUS fumigatus < 0.10 kU/L (<0.10)
[2024-10-10 18:32] LABS: FUNGITELL INTERPRETATION POSITIVE (NEGATIVE); FUNGITELL, SERUM 382 pg/mL (<60)
== END ==
LOC: M PLALAB 08:32
PROVIDERS: ATTEND Internal Medicine Infectious Disease
DX: J18.9 Pneumonia, unspecified organism (principal)

== ENCOUNTER 2024-10-26 12:05 | Inpatient (IN) | payer MEDICARE ==
[~2024-10-26] VITALS: Ht 175.3 cm; Wt 85.0 kg
[2024-10-26] MEDS: ACETAMINOPHEN 325 MG TAB PO ONE (13:18)
[2024-10-26 14:38] LABS: BASO # 0.1 10^3/uL (0.0-0.2); BASO % 0.4 % (0.0-1.0); EOS # 0.3 10^3/uL (0.0-0.5); EOS % 1.4 % (0.0-3.0); HEMATOCRIT 37.4 % (42.0-52.0); HEMOGLOBIN 11.5 g/dl (13.5-17.5); LYMPH # 0.7 10^3/uL (1.5-5.0); MEAN CORPUSCULAR HEMOGLOBIN 29.2 pg (27.0-33.0); MEAN CORPUSCULAR HGB CONC 30.7 g/dl (32.0-36.5); MEAN CORPUSCULAR VOLUME 94.9 fl (80.0-96.0); MONO # 1.6 10^3/uL (0.0-0.8); MONO % 6.5 % (2.0-8.0); NEUTROPHILS # 21.5 10^3/uL (1.5-8.5); PLATELET COUNT, AUTOMATED 332 10^3/uL (150-450); RED BLOOD COUNT 3.94 10^6/uL (4.30-6.10); WHITE BLOOD COUNT 24.4 10^3/uL (4.0-10.0)
[2024-10-26 15:02] LABS: ALBUMIN 2.1 G/DL (3.2-5.2); ALKALINE PHOSPHATASE 105 U/L (40-129); ALT/SGPT < 9 U/L (7.0-40); AST/SGOT 15 U/L (<34); BILIRUBIN,DIRECT < 0.1 MG/DL (<0.4); BILIRUBIN,TOTAL 0.2 MG/DL (0.3-1.2); BLOOD UREA NITROGEN 39 MG/DL (9-23); CALCIUM LEVEL 8.8 MG/DL (8.3-10.6); CARBON DIOXIDE LEVEL 30 MMOL/L (20-31); CHLORIDE LEVEL 101 MMOL/L (98-107); CREATININE FOR GFR 1.76 MG/DL (0.70-1.30); GLOMERULAR FILTRATION RATE 39.6 (>35); GLUCOSE, FASTING 190 MG/DL (74-106); POTASSIUM SERUM 4.5 MMOL/L (3.5-5.1); SODIUM LEVEL 137 MMOL/L (136-145); TOTAL PROTEIN 6.2 G/DL (5.7-8.2)
[2024-10-26 15:04] LABS: FREE T4 1.05 NG/DL (0.89-1.76); THYROID STIMULATING HORMONE 0.505 uIU/ML (0.55-4.78)
[2024-10-26] MEDS ORDERED: ISOVUE-370 76% 100ML VIAL As Ordered ONE (15:05)
[2024-10-26 15:18] LABS: PROCALCITONIN 0.69 ng/ml
[2024-10-26] MEDS ORDERED: NS (Normal Saline) 0.9% 1,000 ML IV SCH (17:10)
[2024-10-26] MEDS: NS 500 ML IV ONE (17:26)
[2024-10-26] MEDS: cefTRIAXone SOD 1 GM in DEXTROSE 5% (D5W) ADV/MINI-BAG 50 ML IV ONE (17:26)
[2024-10-26] MEDS ORDERED: AMOX875T2 PO (17:41)
[2024-10-26] MEDS ORDERED: HOME MED LIST COMPLETE! XX SCH (17:45)
[2024-10-26] MEDS: AZITHROMYCIN INJ 500 MG, VIAL MATE ADAPTER 1 EACH in NS 250 ML IV ONE (18:24)
[2024-10-26] MEDS ORDERED: MOM 30ML SUSPENSION UDC PO PRN (18:30)
[2024-10-26] MEDS ORDERED: DEXTROSE 50% 50ML SYRINGE IV PRN (18:45)
[2024-10-26] MEDS ORDERED: GLUCOSE 4 GM CHEW PO PRN (18:45)
[2024-10-26] MEDS ORDERED: GLUCAGON INJ 1MG VIAL SC PRN (18:45)
[2024-10-26 19:58] LABS: INR 1.4; PARTIAL THROMBOPLASTIN TIME 32.7 SECONDS (24.8-34.2); PROTHROMBIN TIME 17.4 SECONDS (12.5-14.5)
[2024-10-26] MEDS: IPRATROPIUM 0.5MG/ALBUTEROL 2.5MG INH SOL UD 3ML (DUONEB) INH SCH (20:00)
[2024-10-26] MEDS: GABAPENTIN 400MG CAP PO SCH (20:43)
[2024-10-26] MEDS: SENNA 8.6 MG TAB (SENOKOT) PO SCH (20:43)
[2024-10-26] MEDS: DOCUSATE SODIUM 100MG CAPSULE PO SCH (20:44)
[2024-10-26] MEDS: PANTOPRAZOLE 40MG TAB (PROTONIX) PO SCH (20:44)
[2024-10-26] MEDS: DOXYCYCLINE HYCLATE 100MG TABLET PO SCH (20:44)
[2024-10-26] MEDS: LR 1,000 ML IV SCH (20:45)
[2024-10-26] MEDS: amLODIPine 5 MG TAB PO SCH (20:57)
[2024-10-26] MEDS: MORPHINE SULFATE TAB IMM. REL. 15 MG PO SCH (21:00)
[2024-10-26] MEDS: INSULIN LISPRO (NovoLOG) PER UNIT SC SCH (21:07)
[2024-10-26 21:20] VITALS: BP 154/56; TEMP 98.1; O2SAT 98
[2024-10-26] MEDS: TIMOLOL MALEATE 0.5% OPHTH SOLN 5 ML OU SCH (22:49)
[2024-10-26] MEDS: LATANOPROST 0.005% OPHTH SOLN 2.5 ML OU SCH (22:49)
[2024-10-26] MEDS: VORICONAZOLE 200MG TABLET (VFEND) PO SCH (22:49)
[2024-10-27] MEDS: GABAPENTIN 100 MG CAP PO ONE (03:58)
[2024-10-27 04:14] VITALS: BP 133/55; TEMP 97.9; O2SAT 93
[2024-10-27 06:50] LABS: CALCIUM LEVEL 8.4 MG/DL (8.3-10.6); CREATININE FOR GFR 1.66 MG/DL (0.70-1.30); GLOMERULAR FILTRATION RATE 42.3 (>35); POTASSIUM SERUM 4.3 MMOL/L (3.5-5.1)
[2024-10-27 08:00] VITALS: BP 133/53; TEMP 97.9; O2SAT 90
[2024-10-27 08:00] LABS: BASO # 0.1 10^3/uL (0.0-0.2); BASO % 0.5 % (0.0-1.0); EOS % 4.8 % (0.0-3.0); HEMATOCRIT 34.3 % (42.0-52.0); HEMOGLOBIN 10.6 g/dl (13.5-17.5); LYMPH # 1.1 10^3/uL (1.5-5.0); LYMPH % 5.1 % (24.0-44.0); MEAN CORPUSCULAR HEMOGLOBIN 29.1 pg (27.0-33.0); MEAN CORPUSCULAR HGB CONC 30.9 g/dl (32.0-36.5); MEAN CORPUSCULAR VOLUME 94.2 fl (80.0-96.0); MONO # 1.7 10^3/uL (0.0-0.8); MONO % 7.9 % (2.0-8.0); NEUTROPHILS # 17.3 10^3/uL (1.5-8.5); PLATELET COUNT, AUTOMATED 314 10^3/uL (150-450); RED BLOOD COUNT 3.64 10^6/uL (4.30-6.10); WHITE BLOOD COUNT 21.3 10^3/uL (4.0-10.0)
[2024-10-27] MEDS ORDERED: SIMBRINZA OPTHALMIC PO SCH (09:00)
[2024-10-27] MEDS: ASPIRIN 81MG ENTERIC TABLET PO SCH (09:46)
[2024-10-27] MEDS: VITAMIN D 1,000 INTERNATIONAL UNITS TABLET PO SCH (09:47)
[2024-10-27] MEDS: FINASTERIDE 5MG TAB PO SCH (09:47)
[2024-10-27] MEDS: LACTOBACILLUS ACIDOPHILUS CAP (BACID) PO SCH (09:47)
[2024-10-27] MEDS: TORSEMIDE 20 MG TAB PO SCH (09:48)
[2024-10-27] MEDS: MAGNESIUM OXIDE 400MG TAB (MAG-OX) PO SCH (09:48)
[2024-10-27] MEDS: FERROUS SULFATE 325MG TAB PO SCH (09:48)
[2024-10-27] MEDS: HumuLIN N INSULIN (NovoLIN N) PER UNIT SC SCH (09:48)
[2024-10-27] MEDS: INSULIN LISPRO (NovoLOG) PER UNIT SC SCH (09:49)
[2024-10-27] MEDS: ENOXAPARIN 40MG/0.4ML SYRINGE (J1650 PER 10MG) SC SCH (09:49)
[2024-10-27 11:47] VITALS: BP_SYST 127; BP_SYST 145; BP_SYST 146; BP_DIAS 48; BP_DIAS 54; BP_DIAS 56
[2024-10-27 12:00] VITALS: TEMP 97.3
[2024-10-27] MEDS ORDERED: cefTRIAXone SOD 1 GM in DEXTROSE 5% (D5W) ADV/MINI-BAG 50 ML IV SCH (17:00)
[2024-10-27] MEDS: AZITHROMYCIN 250MG TABLET PO SCH (17:42)
[2024-10-27 20:13] VITALS: BP 140/54; TEMP 98.2; O2SAT 95
[2024-10-28 04:00] VITALS: BP 136/56; TEMP 97.7; O2SAT 94
[2024-10-28 05:55] LABS: BASO # 0.1 10^3/uL (0.0-0.2); BASO % 0.5 % (0.0-1.0); EOS % 7.6 % (0.0-3.0); HEMATOCRIT 33.2 % (42.0-52.0); HEMOGLOBIN 10.1 g/dl (13.5-17.5); LYMPH # 1.5 10^3/uL (1.5-5.0); MEAN CORPUSCULAR HEMOGLOBIN 28.5 pg (27.0-33.0); MEAN CORPUSCULAR HGB CONC 30.4 g/dl (32.0-36.5); MEAN CORPUSCULAR VOLUME 93.8 fl (80.0-96.0); MONO # 1.4 10^3/uL (0.0-0.8); MONO % 10.2 % (2.0-8.0); NEUTROPHILS # 9.3 10^3/uL (1.5-8.5); PLATELET COUNT, AUTOMATED 297 10^3/uL (150-450); RED BLOOD COUNT 3.54 10^6/uL (4.30-6.10); WHITE BLOOD COUNT 13.3 10^3/uL (4.0-10.0)
[2024-10-28 06:11] LABS: CALCIUM LEVEL 8.2 MG/DL (8.3-10.6); CREATININE FOR GFR 1.58 MG/DL (0.70-1.30); GLOMERULAR FILTRATION RATE 44.8 (>35); POTASSIUM SERUM 4.5 MMOL/L (3.5-5.1)
[2024-10-28] MEDS: rifAMPin 150MG CAPSULE PO SCH (08:37)
[2024-10-28 08:38] VITALS: BP 139/55
[2024-10-28] MEDS: ACETAMINOPHEN 325 MG TAB PO PRN (08:44)
[2024-10-28] MEDS ORDERED: AZIT-12 PO (10:29)
[2024-10-28] MEDS ORDERED: DULC10SU2 PR (10:29)
[2024-10-28] MEDS ORDERED: RIFA30CA PO (10:29)
[2024-10-28] MEDS ORDERED: MIRA3350 PO (10:29)
[2024-10-28] MEDS ORDERED: ETHA1TAB2 PO (10:29)
[2024-10-28] MEDS ORDERED: MORP15TA2 PO (10:30)
[2024-10-28] MEDS ORDERED: SIMV20TA22 PO (10:35)
[2024-10-28] MEDS ORDERED: TORS20TA2 PO (10:35)
[2024-10-28] MEDS ORDERED: CEFD1CAP9 PO (10:40)
[2024-10-31] MEDS ORDERED: ETHAMBUTOL 400MG TAB PO SCH (09:00)
== END 2024-10-28 14:03 | disposition home or self-care (01) | DRG 178 ==
LOC: EDBD 12:05 → M ED 12:05 → M ED INP 18:26 → M MSPAV 21:20
PROVIDERS: ADMIT Student in an Organized Health Care Education/Training Program; ATTEND Student in an Organized Health Care Education/Training Program
PROC: B246ZZZ Ultrasonography of Right and Left Heart (ICD-10-PCS; principal; 2024-10-27)
DX: J15.8 Pneumonia due to other specified bacteria (principal); I50.32 Chronic diastolic (congestive) heart failure; I13.0 Hypertensive heart and chronic kidney disease with heart failure and stage 1 through stage 4 chronic kidney disease, or unspecified chronic kidney disease; A31.0 Pulmonary mycobacterial infection; I25.10 Atherosclerotic heart disease of native coronary artery without angina pectoris; E11.40 Type 2 diabetes mellitus with diabetic neuropathy, unspecified; E78.5 Hyperlipidemia, unspecified; E11.51 Type 2 diabetes mellitus with diabetic peripheral angiopathy without gangrene; N18.32 Chronic kidney disease, stage 3b; E11.22 Type 2 diabetes mellitus with diabetic chronic kidney disease; N40.0 Benign prostatic hyperplasia without lower urinary tract symptoms; G89.29 Other chronic pain; M17.0 Bilateral primary osteoarthritis of knee; M54.9 Dorsalgia, unspecified; I95.1 Orthostatic hypotension; K59.03 Drug induced constipation; T40.2X5A Adverse effect of other opioids, initial encounter; H40.9 Unspecified glaucoma; K21.9 Gastro-esophageal reflux disease without esophagitis; D50.9 Iron deficiency anemia, unspecified; I44.7 Left bundle-branch block, unspecified; Z79.82 Long term (current) use of aspirin; Z79.891 Long term (current) use of opiate analgesic; Z96.651 Presence of right artificial knee joint; Z98.41 Cataract extraction status, right eye; Z79.4 Long term (current) use of insulin; Z79.899 Other long term (current) drug therapy; Z98.42 Cataract extraction status, left eye; Z89.422 Acquired absence of other left toe(s); Z95.5 Presence of coronary angioplasty implant and graft

== ENCOUNTER 2024-11-02 22:21 | Emergency (ER) | payer MEDICARE ==
[~2024-11-02] VITALS: Ht 175.3 cm; Wt 84.1 kg
[~2024-11-02 22:21] MED LIST changes: +AZIT-12 PO; +CEFD1CAP9 PO; +DULC10SU2 PR; +ETHA1TAB2 PO; +RIFA30CA PO
[2024-11-02 22:34] VITALS: BP 160/80; TEMP 97.3; O2SAT 95
[2024-11-03] MEDS: GABAPENTIN 400MG CAP PO ONE (00:29)
[2024-11-03 00:57] LABS: BLOOD UREA NITROGEN 22 MG/DL (9-23); CALCIUM LEVEL 8.5 MG/DL (8.3-10.6); CARBON DIOXIDE LEVEL 27 MMOL/L (20-31); CHLORIDE LEVEL 101 MMOL/L (98-107); CREATININE FOR GFR 0.97 MG/DL (0.70-1.30); GLOMERULAR FILTRATION RATE > 60.0 (>35); GLUCOSE, FASTING 236 MG/DL (74-106); POTASSIUM SERUM 4.6 MMOL/L (3.5-5.1); SODIUM LEVEL 139 MMOL/L (136-145)
[2024-11-03 01:05] LABS: BASO # 0.1 10^3/uL (0.0-0.2); EOS # 0.7 10^3/uL (0.0-0.5); EOS % 7.9 % (0.0-3.0); HEMATOCRIT 37.5 % (42.0-52.0); HEMOGLOBIN 11.8 g/dl (13.5-17.5); LYMPH # 1.1 10^3/uL (1.5-5.0); MEAN CORPUSCULAR HEMOGLOBIN 29.3 pg (27.0-33.0); MEAN CORPUSCULAR HGB CONC 31.5 g/dl (32.0-36.5); MEAN CORPUSCULAR VOLUME 93.1 fl (80.0-96.0); MONO # 0.8 10^3/uL (0.0-0.8); MONO % 8.6 % (2.0-8.0); NEUTROPHILS % 68.6 % (36.0-66.0); PLATELET COUNT, AUTOMATED 396 10^3/uL (150-450); RED BLOOD COUNT 4.03 10^6/uL (4.30-6.10); WHITE BLOOD COUNT 8.7 10^3/uL (4.0-10.0)
== END 2024-11-03 02:07 | disposition home or self-care (01) ==
LOC: M ED 22:21 → EDBD 22:21 → M ED 11-03 02:07
DX: R53.81 Other malaise (principal); I10 Essential (primary) hypertension; Z79.1 Long term (current) use of non-steroidal anti-inflammatories (NSAID); Z79.2 Long term (current) use of antibiotics; Z79.4 Long term (current) use of insulin; Z79.899 Other long term (current) drug therapy

== ENCOUNTER 2024-11-30 19:13 | Inpatient (IN) | payer MEDICARE ==
[~2024-11-30] VITALS: Ht 175.3 cm; Wt 79.9 kg
[2024-11-30 21:57] LABS: BASO # 0.1 10^3/uL (0.0-0.2); BASO % 0.5 % (0.0-1.0); EOS # 0.1 10^3/uL (0.0-0.5); EOS % 0.3 % (0.0-3.0); HEMATOCRIT 39.4 % (42.0-52.0); HEMOGLOBIN 12.4 g/dl (13.5-17.5); LYMPH % 3.7 % (24.0-44.0); MEAN CORPUSCULAR HEMOGLOBIN 30.3 pg (27.0-33.0); MEAN CORPUSCULAR HGB CONC 31.5 g/dl (32.0-36.5); MEAN CORPUSCULAR VOLUME 96.3 fl (80.0-96.0); MONO # 1.4 10^3/uL (0.0-0.8); MONO % 5.5 % (2.0-8.0); NEUTROPHILS # 23.4 10^3/uL (1.5-8.5); NEUTROPHILS % 89.2 % (36.0-66.0); PLATELET COUNT, AUTOMATED 292 10^3/uL (150-450); RED BLOOD COUNT 4.09 10^6/uL (4.30-6.10); WHITE BLOOD COUNT 26.3 10^3/uL (4.0-10.0)
[2024-11-30] MEDS ORDERED: VANCOMYCIN HCL 1,500 MG in IV FLUID PLACE HOLDER 1 EA IV ONE (22:10)
[2024-11-30] MEDS ORDERED: ETHA1TAB2 PO (22:42)
[2024-11-30] MEDS ORDERED: TORS10TA3 PO (22:42)
[2024-11-30] MEDS ORDERED: SIMV10TA21 PO (22:42)
[2024-11-30] MEDS ORDERED: RIFA300C62 PO (22:47)
[2024-11-30 22:50] LABS: ALBUMIN 2.6 G/DL (3.2-5.2); BILIRUBIN,TOTAL 0.3 MG/DL (0.3-1.2); CALCIUM LEVEL 10.3 MG/DL (8.3-10.6); CREATININE FOR GFR 1.59 MG/DL (0.70-1.30); GLOMERULAR FILTRATION RATE 44.5 (>35); MAGNESIUM LEVEL 2.3 MG/DL (1.8-2.4); POTASSIUM SERUM 5.8 MMOL/L (3.5-5.1); TOTAL PROTEIN 6.8 G/DL (5.7-8.2)
[2024-11-30] MEDS ORDERED: HOME MED LIST COMPLETE! XX SCH (22:50)
[2024-11-30] MEDS: VANCOMYCIN HCL 1,500 MG, VIAL MATE ADAPTER 1 EACH in NS 500 ML IV ONE (23:48)
[2024-11-30] MEDS: GABAPENTIN 400MG CAP PO ONE (23:49)
[2024-11-30] MEDS: PIPERACILLIN/TAZOBACTAM SOD 4.5 GM in DEXTROSE 5% (D5W) ADV/MINI-BAG 50 ML IV ONE (23:49)
[2024-11-30] MEDS: MORPHINE SULFATE TAB EXT REL 30 MG PO ONE (23:50)
[2024-12-01] MEDS ORDERED: ACETAMINOPHEN 325 MG TAB PO PRN (03:30)
[2024-12-01] MEDS ORDERED: LEVALBUTEROL 1.25MG 0.5ML CONCENTRATE NEB INH PRN (03:30)
[2024-12-01] MEDS ORDERED: DOCUSATE SODIUM 100MG CAPSULE PO PRN (03:30)
[2024-12-01] MEDS ORDERED: DEXTROSE 50% 50ML SYRINGE IV PRN (03:30)
[2024-12-01] MEDS ORDERED: GLUCOSE 4 GM CHEW PO PRN (03:30)
[2024-12-01] MEDS ORDERED: GLUCAGON INJ 1MG VIAL SC PRN (03:30)
[2024-12-01 04:06] VITALS: BP 167/66; TEMP 97.7; O2SAT 96
[2024-12-01 05:15] LABS: INR 1.17; PROTHROMBIN TIME 15.2 SECONDS (12.5-14.5)
[2024-12-01] MEDS: PIPERACILLIN/TAZOBACTAM SOD 4.5 GM in DEXTROSE 5% (D5W) ADV/MINI-BAG 50 ML IV SCH ×2 (05:21→13:00)
[2024-12-01 05:22] VITALS: BP 167/66
[2024-12-01] MEDS: PATIROMER SORBITEX CALCIUM 8.4 GM POWDER PACKET (VELTASSA) PO ONE ×2 (05:22→12:48)
[2024-12-01] MEDS: amLODIPine 5 MG TAB PO PRN (05:22)
[2024-12-01 05:57] LABS: PROCALCITONIN 0.42 ng/ml
[2024-12-01] MEDS: IPRATROPIUM 0.5MG/ALBUTEROL 2.5MG INH SOL UD 3ML (DUONEB) INH SCH (07:15)
[2024-12-01] MEDS ORDERED: BISACODYL 10MG SUPP PR PRN (07:30)
[2024-12-01 07:43] LABS: HEMATOCRIT 38.5 % (42.0-52.0); HEMOGLOBIN 11.8 g/dl (13.5-17.5); MEAN CORPUSCULAR HEMOGLOBIN 29.6 pg (27.0-33.0); MEAN CORPUSCULAR HGB CONC 30.6 g/dl (32.0-36.5); MEAN CORPUSCULAR VOLUME 96.7 fl (80.0-96.0); PLATELET COUNT, AUTOMATED 281 10^3/uL (150-450); RED BLOOD COUNT 3.98 10^6/uL (4.30-6.10); WHITE BLOOD COUNT 21.6 10^3/uL (4.0-10.0)
[2024-12-01 07:54] LABS: ALBUMIN 2.5 G/DL (3.2-5.2); BILIRUBIN,TOTAL 0.5 MG/DL (0.3-1.2); CALCIUM LEVEL 9.8 MG/DL (8.3-10.6); CREATININE FOR GFR 1.67 MG/DL (0.70-1.30); POTASSIUM SERUM 5.6 MMOL/L (3.5-5.1); TOTAL PROTEIN 6.5 G/DL (5.7-8.2)
[2024-12-01] MEDS ORDERED: LevoFLOXacin IV 750 MG in IV 1 EA IV SCH (08:00)
[2024-12-01 08:38] VITALS: BP 132/41; TEMP 97.7; O2SAT 96
[2024-12-01] MEDS: AZITHROMYCIN 250MG TABLET PO SCH (08:58)
[2024-12-01] MEDS: TORSEMIDE 10 MG TABLET PO SCH (08:58)
[2024-12-01] MEDS: PANTOPRAZOLE 40MG TAB (PROTONIX) PO SCH (08:58)
[2024-12-01] MEDS: FERROUS SULFATE 325MG TAB PO SCH (08:58)
[2024-12-01] MEDS: SENNA 8.6 MG TAB (SENOKOT) PO SCH (08:58)
[2024-12-01] MEDS: ASPIRIN 81MG ENTERIC TABLET PO SCH (08:58)
[2024-12-01] MEDS: FINASTERIDE 5MG TAB PO SCH (08:58)
[2024-12-01] MEDS: MIRALAX *UNIT DOSE* 17GM PACKET PO SCH (08:59)
[2024-12-01] MEDS: TIMOLOL MALEATE 0.5% OPHTH SOLN 5 ML OU SCH (09:00)
[2024-12-01] MEDS: ENOXAPARIN 30MG/0.3ML SYRINGE (J1650 PER 10MG) SC SCH (09:01)
[2024-12-01] MEDS: INSULIN LISPRO (NovoLOG) PER UNIT SC SCH ×2 (09:01→20:33)
[2024-12-01] MEDS ORDERED: VARIBAR NECTAR 40% w/v 240ML SUSP BTL As Ordered ONE (11:38)
[2024-12-01] MEDS ORDERED: VARIBAR PUDDING 40% w/v 230ML TUBE As Ordered ONE (11:38)
[2024-12-01] MEDS ORDERED: E-Z-PAQUE 96% w/w SUSP 176GM BTL As Ordered ONE (11:39)
[2024-12-01] MEDS ORDERED: BARIUM SULFATE 700 MG TABLET (E-Z-DISK) As Ordered ONE (11:39)
[2024-12-01] MEDS: FUROSEMIDE 20MG/2ML VIAL IV ONE (12:47)
[2024-12-01 13:08] VITALS: BP 158/70; TEMP 97.7; O2SAT 97
[2024-12-01] MEDS: HumuLIN N INSULIN (NovoLIN N) PER UNIT SC SCH (16:00)
[2024-12-01 16:15] LABS: C REACTIVE PROTEIN QUANTITATIV 10.73 MG/DL (<1.0)
[2024-12-01 16:55] VITALS: BP 152/70; TEMP 97.9; O2SAT 97
[2024-12-01] MEDS: LACTOBACILLUS ACIDOPHILUS CAP (BACID) PO SCH (18:06)
[2024-12-01 20:21] VITALS: BP 148/61; TEMP 98.1; O2SAT 96
[2024-12-01] MEDS: SIMVASTATIN 10 MG TAB PO SCH (20:35)
[2024-12-01] MEDS: TAMSULOSIN 0.4 MG CAP PO SCH (20:35)
[2024-12-01] MEDS: GABAPENTIN 400MG CAP PO SCH (20:36)
[2024-12-01] MEDS: MORPHINE SULFATE TAB IMM. REL. 15 MG PO SCH (20:36)
[2024-12-01] MEDS: LATANOPROST 0.005% OPHTH SOLN 2.5 ML OU SCH (20:41)
[2024-12-02 00:50] VITALS: BP 114/75; TEMP 98.4; O2SAT 98
[2024-12-02 05:42] VITALS: BP 142/75; TEMP 98.6; O2SAT 98
[2024-12-02] MEDS: HEPARIN SOD (PORCINE) 5000UNITS/ML 1ML VIAL/SYRINGE SQ SCH (05:44)
[2024-12-02 07:09] LABS: HEMATOCRIT 36.8 % (42.0-52.0); HEMOGLOBIN 11.3 g/dl (13.5-17.5); MEAN CORPUSCULAR HEMOGLOBIN 29.7 pg (27.0-33.0); MEAN CORPUSCULAR HGB CONC 30.7 g/dl (32.0-36.5); MEAN CORPUSCULAR VOLUME 96.8 fl (80.0-96.0); PLATELET COUNT, AUTOMATED 266 10^3/uL (150-450); WHITE BLOOD COUNT 11.2 10^3/uL (4.0-10.0)
[2024-12-02 07:44] LABS: ALBUMIN 2.3 G/DL (3.2-5.2); BILIRUBIN,TOTAL 0.4 MG/DL (0.3-1.2); CALCIUM LEVEL 9.5 MG/DL (8.3-10.6); CREATININE FOR GFR 1.72 MG/DL (0.70-1.30); GLOMERULAR FILTRATION RATE 40.6 (>35); POTASSIUM SERUM 5.2 MMOL/L (3.5-5.1); TOTAL PROTEIN 6.4 G/DL (5.7-8.2)
[2024-12-02 08:00] VITALS: BP 148/66; TEMP 97.9; O2SAT 98
[2024-12-02] MEDS: VITAMIN D 1,000 INTERNATIONAL UNITS TABLET PO SCH (08:19)
[2024-12-02] MEDS: ETHAMBUTOL 400MG TAB PO SCH (08:20)
[2024-12-02] MEDS: rifAMPin 150MG CAPSULE PO SCH (08:41)
[2024-12-02] MEDS ORDERED: ETHAMBUTOL 400MG TAB PO SCH (09:00)
[2024-12-02] MEDS ORDERED: rifAMPin 150MG CAPSULE PO SCH (09:00)
[2024-12-02 11:40] VITALS: BP 142/55; TEMP 97.3; O2SAT 98
[2024-12-02] MEDS: PATIROMER SORBITEX CALCIUM 8.4 GM POWDER PACKET (VELTASSA) PO ONE (15:23)
[2024-12-02] MEDS: NS (Normal Saline) 0.9% 1,000 ML IV SCH (17:36)
[2024-12-02] MEDS: CALCIUM GLUCONATE 1,000 MG in DEXTROSE 5% (D5W) MINI-BAG PLU 100 ML IV ONE (17:37)
[2024-12-02] MEDS: MORPHINE SULFATE TAB IMM. REL. 30 MG PO SCH (20:19)
[2024-12-02 20:32] VITALS: BP 103/65; TEMP 97.5; O2SAT 95
[2024-12-02 23:41] LABS: CALCIUM LEVEL 8.6 MG/DL (8.3-10.6); CREATININE FOR GFR 1.45 MG/DL (0.70-1.30); GLOMERULAR FILTRATION RATE 49.5 (>35); POTASSIUM SERUM 4.8 MMOL/L (3.5-5.1)
[2024-12-02 23:50] VITALS: BP 164/61; TEMP 97.7; O2SAT 100
[2024-12-03 05:09] VITALS: BP 163/61; TEMP 97.3; O2SAT 100
[2024-12-03 06:20] LABS: BASO # 0.1 10^3/uL (0.0-0.2); BASO % 1.4 % (0.0-1.0); HEMATOCRIT 33.9 % (42.0-52.0); HEMOGLOBIN 10.5 g/dl (13.5-17.5); LYMPH # 1.3 10^3/uL (1.5-5.0); LYMPH % 17.9 % (24.0-44.0); MEAN CORPUSCULAR HEMOGLOBIN 29.3 pg (27.0-33.0); MEAN CORPUSCULAR VOLUME 94.7 fl (80.0-96.0); MONO % 13.4 % (2.0-8.0); NEUTROPHILS % 53.9 % (36.0-66.0); PLATELET COUNT, AUTOMATED 253 10^3/uL (150-450); RED BLOOD COUNT 3.58 10^6/uL (4.30-6.10); WHITE BLOOD COUNT 7.3 10^3/uL (4.0-10.0)
[2024-12-03 06:43] LABS: CREATININE FOR GFR 1.44 MG/DL (0.70-1.30); GLOMERULAR FILTRATION RATE 49.9 (>35); POTASSIUM SERUM 4.8 MMOL/L (3.5-5.1)
[2024-12-03 08:00] VITALS: BP 159/61; TEMP 97.7; O2SAT 100
[2024-12-03] MEDS ORDERED: BACI1CAP PO (08:02)
[2024-12-03] MEDS ORDERED: CEFD1CAP9 PO (08:02)
[2024-12-03] MEDS ORDERED: RIFA30CA PO (08:02)
[2024-12-03] MEDS ORDERED: ETHA1TAB2 PO (08:02)
[2024-12-03] MEDS ORDERED: VELT1POW PO (08:04)
[2024-12-03] MEDS ORDERED: PATIROMER SORBITEX CALCIUM 8.4 GM POWDER PACKET (VELTASSA) PO SCH (12:00)
[2024-12-03 12:20] VITALS: BP 140/86; TEMP 97.4; O2SAT 98
== END 2024-12-03 12:20 | disposition home or self-care (01) | DRG 178 ==
LOC: M ED 19:13 → M ED INP 23:47 → M MS5PR 12-01 04:05
PROVIDERS: ADMIT Family Medicine; ATTEND Student in an Organized Health Care Education/Training Program
DX: J69.0 Pneumonitis due to inhalation of food and vomit (principal); J96.11 Chronic respiratory failure with hypoxia; I50.32 Chronic diastolic (congestive) heart failure; I13.0 Hypertensive heart and chronic kidney disease with heart failure and stage 1 through stage 4 chronic kidney disease, or unspecified chronic kidney disease; N17.9 Acute kidney failure, unspecified; I25.10 Atherosclerotic heart disease of native coronary artery without angina pectoris; E11.40 Type 2 diabetes mellitus with diabetic neuropathy, unspecified; E78.5 Hyperlipidemia, unspecified; E11.51 Type 2 diabetes mellitus with diabetic peripheral angiopathy without gangrene; Z89.422 Acquired absence of other left toe(s); N18.32 Chronic kidney disease, stage 3b; E11.22 Type 2 diabetes mellitus with diabetic chronic kidney disease; N40.0 Benign prostatic hyperplasia without lower urinary tract symptoms; G89.29 Other chronic pain; E87.5 Hyperkalemia; M54.9 Dorsalgia, unspecified; K21.9 Gastro-esophageal reflux disease without esophagitis; Z99.81 Dependence on supplemental oxygen; K59.03 Drug induced constipation; H40.9 Unspecified glaucoma; T40.2X5A Adverse effect of other opioids, initial encounter; D50.9 Iron deficiency anemia, unspecified; I44.7 Left bundle-branch block, unspecified; G31.84 Mild cognitive impairment of uncertain or unknown etiology; A31.0 Pulmonary mycobacterial infection; Z79.891 Long term (current) use of opiate analgesic; Z96.651 Presence of right artificial knee joint; Z95.5 Presence of coronary angioplasty implant and graft; Z98.41 Cataract extraction status, right eye; Z79.82 Long term (current) use of aspirin; Z98.42 Cataract extraction status, left eye; Z79.899 Other long term (current) drug therapy; Z79.4 Long term (current) use of insulin

== ENCOUNTER → 2024-12-19 | Outpatient (REF) | payer MEDICARE ==
[~2024-12-19] MED LIST changes: +RIFA300C62 PO; +SIMV10TA21 PO; +TORS10TA3 PO; +VELT1POW PO
== END ==
LOC: M SFHCPLAZ 17:45
PROVIDERS: ATTEND Internal Medicine Infectious Disease
DX: A31.0 Pulmonary mycobacterial infection (principal)

== ENCOUNTER 2025-01-10 12:07 | Inpatient (IN) | payer MEDICARE ==
[~2025-01-10] VITALS: Ht 175.3 cm; Wt 81.6 kg
[~2025-01-10 12:07] MED LIST changes: +INSU100I12 SQ; -INSU100I12 SUBQ; +INSU100I14 SQ; -INSU100I14 SUBQ
[2025-01-10 13:24] LABS: BASO # 0.1 10^3/uL (0.0-0.2); BASO % 0.5 % (0.0-1.0); EOS # 0.2 10^3/uL (0.0-0.5); EOS % 0.8 % (0.0-3.0); HEMATOCRIT 40.3 % (42.0-52.0); HEMOGLOBIN 12.6 g/dl (13.5-17.5); LYMPH # 0.5 10^3/uL (1.5-5.0); LYMPH % 1.6 % (24.0-44.0); MEAN CORPUSCULAR HEMOGLOBIN 30.5 pg (27.0-33.0); MEAN CORPUSCULAR HGB CONC 31.3 g/dl (32.0-36.5); MEAN CORPUSCULAR VOLUME 97.6 fl (80.0-96.0); MONO # 1.3 10^3/uL (0.0-0.8); MONO % 4.4 % (2.0-8.0); NEUTROPHILS # 27.3 10^3/uL (1.5-8.5); NEUTROPHILS % 91.9 % (36.0-66.0); PLATELET COUNT, AUTOMATED 334 10^3/uL (150-450); RED BLOOD COUNT 4.13 10^6/uL (4.30-6.10); WHITE BLOOD COUNT 29.6 10^3/uL (4.0-10.0)
[2025-01-10 13:31] LABS: VENOUS HCO3 30.1 MMOL/L (23.0-27.0); VENOUS PARTIAL PRESSURE CO2 45.9 mmHg (38.0-50.0); VENOUS PARTIAL PRESSURE O2 161.2 mmHg (30.0-50.0); VENOUS PH 7.434 UNITS (7.330-7.430); VENOUS TOTAL CO2 31.5 MMOL/L (24.0-28.0)
[2025-01-10 13:57] LABS: THYROID STIMULATING HORMONE 1.486 uIU/ML (0.55-4.78)
[2025-01-10 13:59] LABS: ALBUMIN 2.6 G/DL (3.2-5.2); BILIRUBIN,DIRECT 0.2 MG/DL (<0.4); BILIRUBIN,TOTAL 0.4 MG/DL (0.3-1.2); CALCIUM LEVEL 12.6 MG/DL (8.3-10.6); CREATININE FOR GFR 1.87 MG/DL (0.70-1.30); GLOMERULAR FILTRATION RATE 36.9 (>35); POTASSIUM SERUM 5.2 MMOL/L (3.5-5.1); TOTAL PROTEIN 7.2 G/DL (5.7-8.2)
[2025-01-10] MEDS: cefTRIAXone SOD 2 GM in DEXTROSE 5% (D5W) ADV/MINI-BAG 50 ML IV ONE (14:00)
[2025-01-10] MEDS ORDERED: ETHA1TAB2 PO (15:04)
[2025-01-10] MEDS ORDERED: FLOM0.4C39 PO (15:04)
[2025-01-10] MEDS ORDERED: BACI1CAP PO (15:04)
[2025-01-10] MEDS ORDERED: GABA-1490 PO (15:04)
[2025-01-10] MEDS ORDERED: AZIT-12 PO (15:04)
[2025-01-10] MEDS ORDERED: POLY17PO18 PO (15:04)
[2025-01-10] MEDS ORDERED: RIFA30CA PO (15:04)
[2025-01-10] MEDS ORDERED: HOME MED LIST COMPLETE! XX SCH (15:05)
[2025-01-10 18:05] LABS: C REACTIVE PROTEIN QUANTITATIV 7.07 MG/DL (<1.0)
[2025-01-10 18:17] LABS: PROCALCITONIN 0.28 ng/ml
[2025-01-10 18:25] LABS: ERYTHROCYTE SEDIMENTATION RATE 97 mm/hr (0-20)
[2025-01-10 18:48] LABS: KETONE, URINE AUTO RFX NEGATIVE (NEGATIVE); NITRITE, URINE AUTO RFX NEGATIVE (NEGATIVE); RBC, URINE AUTO RFX 2 /HPF (0-3); SQUAM EPITHELIAL CELL UR AURFX 2 /HPF (0-6); YEAST LIKE CELL URINE AUTO RFX SMALL
[2025-01-10 18:49] LABS: LEUKOCYTE ESTERASE UR AUTO RFX 1+ (NEGATIVE); WBC, URINE AUTO RFX 32 /HPF (0-3)
[2025-01-10] MEDS: NS (Normal Saline) 0.9% 1,000 ML IV ONE (18:51)
[2025-01-10] MEDS: PANTOPRAZOLE 40MG VIAL IV SCH (18:52)
[2025-01-10] MEDS: PATIROMER SORBITEX CALCIUM 8.4 GM POWDER PACKET (VELTASSA) PO ONE (19:45)
[2025-01-10] MEDS: NS (Normal Saline) 0.9% 1,000 ML IV SCH (20:08)
[2025-01-10 20:44] LABS: CALCIUM LEVEL 11.6 MG/DL (8.3-10.6); CREATININE FOR GFR 1.88 MG/DL (0.70-1.30); GLOMERULAR FILTRATION RATE 36.7 (>35)
[2025-01-10] MEDS ORDERED: MORPHINE SULFATE TAB IMM. REL. 30 MG PO SCH (21:00)
[2025-01-10 21:48] VITALS: BP 150/83; TEMP 98.3; O2SAT 98
[2025-01-10] MEDS: LATANOPROST 0.005% OPHTH SOLN 2.5 ML OU SCH (22:56)
[2025-01-10] MEDS: HEPARIN SOD (PORCINE) 5000UNITS/ML 1ML VIAL/SYRINGE SC SCH (22:56)
[2025-01-10] MEDS: SIMVASTATIN 10 MG TAB PO SCH (22:57)
[2025-01-10] MEDS: TAMSULOSIN 0.4 MG CAP PO SCH (22:57)
[2025-01-10] MEDS: GABAPENTIN 300 MG CAP PO SCH (22:57)
[2025-01-10] MEDS: SUCRALFATE 1 GM TAB PO SCH (22:58)
[2025-01-10] MEDS: MORPHINE SULFATE TAB IMM. REL. 15 MG PO SCH (22:59)
[2025-01-11] VITALS (7 sets, daily range): BP systolic 122–166; BP diastolic 45–72; TEMP 97.7–98.8; O2SAT 93–97
[2025-01-11] MEDS ORDERED: DEXTROSE 50% 50ML SYRINGE IV PRN (01:25)
[2025-01-11] MEDS ORDERED: GLUCAGON INJ 1MG VIAL SC PRN (01:25)
[2025-01-11] MEDS: MOM 30ML SUSPENSION UDC PO PRN (06:02)
[2025-01-11] MEDS: MAALOX 30 ML SUSP *UDC PO PRN (06:02)
[2025-01-11 06:14] LABS: HEMATOCRIT 36.1 % (42.0-52.0); HEMOGLOBIN 11.1 g/dl (13.5-17.5); MEAN CORPUSCULAR HEMOGLOBIN 30.2 pg (27.0-33.0); MEAN CORPUSCULAR HGB CONC 30.7 g/dl (32.0-36.5); MEAN CORPUSCULAR VOLUME 98.1 fl (80.0-96.0); PLATELET COUNT, AUTOMATED 282 10^3/uL (150-450); RED BLOOD COUNT 3.68 10^6/uL (4.30-6.10); WHITE BLOOD COUNT 17.8 10^3/uL (4.0-10.0)
[2025-01-11 06:48] LABS: ALBUMIN 2.3 G/DL (3.2-5.2); BILIRUBIN,TOTAL 0.2 MG/DL (0.3-1.2); CALCIUM LEVEL 11.4 MG/DL (8.3-10.6); CREATININE FOR GFR 1.81 MG/DL (0.70-1.30); GLOMERULAR FILTRATION RATE 38.3 (>35); MAGNESIUM LEVEL 2.4 MG/DL (1.8-2.4); POTASSIUM SERUM 4.6 MMOL/L (3.5-5.1); TOTAL PROTEIN 6.5 G/DL (5.7-8.2)
[2025-01-11] MEDS: INSULIN LISPRO (NovoLOG) PER UNIT SC SCH (07:30)
[2025-01-11 08:03] LABS: C REACTIVE PROTEIN QUANTITATIV 12.55 MG/DL (<1.0)
[2025-01-11] MEDS: predniSONE 20 MG TAB PO SCH (08:08)
[2025-01-11] MEDS: ASPIRIN 81MG ENTERIC TABLET PO SCH (08:08)
[2025-01-11] MEDS: FINASTERIDE 5MG TAB PO SCH (08:08)
[2025-01-11] MEDS: amLODIPine 5 MG TAB PO SCH (08:13)
[2025-01-11] MEDS ORDERED: IPRATROPIUM 0.5MG/ALBUTEROL 2.5MG INH SOL UD 3ML (DUONEB) NEB PRN (10:25)
[2025-01-11] MEDS: AZITHROMYCIN 250MG TABLET PO SCH (11:24)
[2025-01-11] MEDS: SENNA 8.6 MG TAB (SENOKOT) PO SCH (11:24)
[2025-01-11] MEDS: FERROUS SULFATE 325MG TAB PO SCH (11:24)
[2025-01-11] MEDS: rifAMPin 150MG CAPSULE PO SCH (12:25)
[2025-01-11] MEDS: IPRATROPIUM 0.5MG/ALBUTEROL 2.5MG INH SOL UD 3ML (DUONEB) NEB SCH (13:37)
[2025-01-11] MEDS: methylPREDNISolone 125MG 2ML VIAL IV SCH (14:29)
[2025-01-11] MEDS: cefTRIAXone SOD 2 GM in DEXTROSE 5% (D5W) ADV/MINI-BAG 50 ML IV SCH (14:29)
[2025-01-11 16:41] LABS: TOTAL 25(OH) VITAMIN D 37.7 NG/ML (20.0-100.0)
[2025-01-11 17:49] LABS: PTH INTACT < 6.3 PG/ML (18.5-88.0)
[2025-01-11] MEDS ORDERED: [UNRECOGNIZED DRUG - OTHER] OU PRN (18:05)
[2025-01-11] MEDS: SIMBRINZA EYE OU SCH (21:00)
[2025-01-11] MEDS: HumuLIN N INSULIN (NovoLIN N) PER UNIT SC SCH (21:24)
[2025-01-11] MEDS: TIMOLOL MALEATE 0.5% OPHTH SOLN 5 ML OU SCH (21:39)
[2025-01-12 00:04] VITALS: BP 175/63; TEMP 97.9; O2SAT 95
[2025-01-12] MEDS: INSULIN LISPRO (NovoLOG) PER UNIT SC SCH ×2 (00:20→21:42)
[2025-01-12 03:23] VITALS: BP 153/59; TEMP 98.2; O2SAT 95
[2025-01-12 05:24] LABS: HEMATOCRIT 31.8 % (42.0-52.0); MEAN CORPUSCULAR HEMOGLOBIN 30.5 pg (27.0-33.0); MEAN CORPUSCULAR HGB CONC 31.4 g/dl (32.0-36.5); PLATELET COUNT, AUTOMATED 283 10^3/uL (150-450); RED BLOOD COUNT 3.28 10^6/uL (4.30-6.10); WHITE BLOOD COUNT 10.7 10^3/uL (4.0-10.0)
[2025-01-12 05:48] LABS: ALBUMIN 2.2 G/DL (3.2-5.2); ALKALINE PHOSPHATASE 73 U/L (40-129); ALT/SGPT < 9 U/L (7.0-40); AST/SGOT 9 U/L (<34); BILIRUBIN,TOTAL 0.2 MG/DL (0.3-1.2); BLOOD UREA NITROGEN 29 MG/DL (9-23); CALCIUM LEVEL 10.6 MG/DL (8.3-10.6); CARBON DIOXIDE LEVEL 32 MMOL/L (20-31); CHLORIDE LEVEL 99 MMOL/L (98-107); CREATININE FOR GFR 1.68 MG/DL (0.70-1.30); GLOMERULAR FILTRATION RATE 41.7 (>35); GLUCOSE, FASTING 236 MG/DL (74-106); POTASSIUM SERUM 5.8 MMOL/L (3.5-5.1); SODIUM LEVEL 134 MMOL/L (136-145); TOTAL PROTEIN 6.2 G/DL (5.7-8.2)
[2025-01-12 07:36] LABS: MAGNESIUM LEVEL 2.4 MG/DL (1.8-2.4); PHOSPHORUS LEVEL 2.7 MG/DL (2.4-5.1)
[2025-01-12] MEDS: PATIROMER SORBITEX CALCIUM 8.4 GM POWDER PACKET (VELTASSA) PO STA (08:00)
[2025-01-12] MEDS: DEXTROSE 50% 50ML SYRINGE IV STA (08:00)
[2025-01-12] MEDS: ALBUTEROL SULFATE 2.5MG/0.5ML INH NEB SOLN NEB ONE (08:00)
[2025-01-12] MEDS: HumuLIN R (REGULAR) INSULIN (NovoLIN R) **100U/ML** PER UNIT IV STA (08:01)
[2025-01-12] MEDS: ACETAMINOPHEN 325 MG TAB PO PRN (08:51)
[2025-01-12] MEDS: UNRESOLVED PATIENT OWN MED ORDER XX SCH (09:00)
[2025-01-12] MEDS: PERCOCET 5MG/325MG TAB PO PRN (10:05)
[2025-01-12] MEDS: LIDOCAINE 5% (LIDODERM) PATCH TD ONE (10:05)
[2025-01-12 10:13] LABS: CALCIUM LEVEL 10.9 MG/DL (8.3-10.6); CREATININE FOR GFR 1.66 MG/DL (0.70-1.30); GLOMERULAR FILTRATION RATE 42.3 (>35); POTASSIUM SERUM 4.7 MMOL/L (3.5-5.1)
[2025-01-12] MEDS ORDERED: VARIBAR NECTAR 40% w/v 240ML SUSP BTL As Ordered ONE (11:35)
[2025-01-12] MEDS ORDERED: VARIBAR PUDDING 40% w/v 230ML TUBE As Ordered ONE (11:35)
[2025-01-12] MEDS ORDERED: E-Z-PAQUE 96% w/w SUSP 176GM BTL As Ordered ONE (11:36)
[2025-01-12] MEDS ORDERED: BARIUM SULFATE 700 MG TABLET (E-Z-DISK) As Ordered ONE (11:36)
[2025-01-12] MEDS: cefTRIAXone SOD 1 GM in DEXTROSE 5% (D5W) ADV/MINI-BAG 50 ML IV SCH (13:28)
[2025-01-12] MEDS ORDERED: cefTRIAXone SOD 1 GM in DEXTROSE 5% (D5W) ADV/MINI-BAG 50 ML IV SCH (14:00)
[2025-01-12 16:00] VITALS: BP 158/58; TEMP 97.3; O2SAT 96
[2025-01-12] MEDS: INSULIN LISPRO (NovoLOG) PER UNIT SC ONE (16:01)
[2025-01-12] MEDS: NS (Normal Saline) 0.9% 1,000 ML IV SCH (16:51)
[2025-01-12] MEDS: HumuLIN N INSULIN (NovoLIN N) PER UNIT SC SCH (17:56)
[2025-01-12 19:55] VITALS: BP 150/55; TEMP 98.1; O2SAT 95
[2025-01-12] MEDS: CALCITONIN SALMON (MIACALCIN) 400INTERNATIONAL UNITS/2ML VIAL SQ SCH (21:43)
[2025-01-12 21:59] VITALS: O2SAT 96
[2025-01-12] MEDS: ONDANSETRON 4MG 2ML VIAL IV PRN (23:05)
[2025-01-12] MEDS: PANTOPRAZOLE 40MG VIAL IV ONE (23:05)
[2025-01-13] VITALS (8 sets, daily range): BP systolic 132–180; BP diastolic 56–71; TEMP 97.9–98.8; O2SAT 91–95
[2025-01-13] MEDS: HumuLIN N INSULIN (NovoLIN N) PER UNIT SC SCH (01:11)
[2025-01-13] MEDS: GLUCOSE 4 GM CHEW PO PRN (01:13)
[2025-01-13 05:35] LABS: HEMOGLOBIN 10.4 g/dl (13.5-17.5); MEAN CORPUSCULAR HEMOGLOBIN 30.7 pg (27.0-33.0); MEAN CORPUSCULAR HGB CONC 31.5 g/dl (32.0-36.5); MEAN CORPUSCULAR VOLUME 97.3 fl (80.0-96.0); PLATELET COUNT, AUTOMATED 296 10^3/uL (150-450); RED BLOOD COUNT 3.39 10^6/uL (4.30-6.10); WHITE BLOOD COUNT 11.8 10^3/uL (4.0-10.0)
[2025-01-13 05:55] LABS: ALBUMIN 2.3 G/DL (3.2-5.2); ALKALINE PHOSPHATASE 69 U/L (40-129); ALT/SGPT < 9 U/L (7.0-40); AST/SGOT 15 U/L (<34); BILIRUBIN,TOTAL 0.2 MG/DL (0.3-1.2); BLOOD UREA NITROGEN 30 MG/DL (9-23); CALCIUM LEVEL 9.7 MG/DL (8.3-10.6); CARBON DIOXIDE LEVEL 33 MMOL/L (20-31); CHLORIDE LEVEL 101 MMOL/L (98-107); CREATININE FOR GFR 1.35 MG/DL (0.70-1.30); GLOMERULAR FILTRATION RATE 53.7 (>35); GLUCOSE, FASTING 108 MG/DL (74-106); POTASSIUM SERUM 5.1 MMOL/L (3.5-5.1); SODIUM LEVEL 138 MMOL/L (136-145); TOTAL PROTEIN 6.3 G/DL (5.7-8.2)
[2025-01-13] MEDS: INSULIN LISPRO (NovoLOG) PER UNIT SC SCH (09:09)
[2025-01-13] MEDS: MIRALAX *UNIT DOSE* 17GM PACKET PO SCH (09:10)
[2025-01-13] MEDS: metroNIDAZOLE (FLAGYL) 500MG TABLET PO SCH (09:10)
[2025-01-13] MEDS: ETHAMBUTOL 400MG TAB PO SCH (09:34)
[2025-01-13] MEDS: NS (Normal Saline) 0.9% 1,000 ML IV SCH (10:48)
[2025-01-13] MEDS: rifAMPin 150MG CAPSULE PO SCH (10:48)
[2025-01-13] MEDS: cefTRIAXone SOD 1 GM in NS MINI-BAG PLUS 50 ML IV SCH (15:05)
[2025-01-13] MEDS: methylPREDNISolone 40MG 1ML VIAL IV SCH (21:37)
[2025-01-14 00:16] VITALS: BP 162/60; TEMP 98.1; O2SAT 97
[2025-01-14 04:21] VITALS: BP 170/64; TEMP 98.3; O2SAT 97
[2025-01-14] MEDS: MORPHINE 2 MG/ML 1ML VIAL IV ONE (05:46)
[2025-01-14 05:56] LABS: HEMATOCRIT 33.1 % (42.0-52.0); HEMOGLOBIN 10.5 g/dl (13.5-17.5); MEAN CORPUSCULAR HGB CONC 31.7 g/dl (32.0-36.5); MEAN CORPUSCULAR VOLUME 97.6 fl (80.0-96.0); PLATELET COUNT, AUTOMATED 310 10^3/uL (150-450); RED BLOOD COUNT 3.39 10^6/uL (4.30-6.10); WHITE BLOOD COUNT 14.4 10^3/uL (4.0-10.0)
[2025-01-14 06:31] LABS: ALBUMIN 2.2 G/DL (3.2-5.2); ALKALINE PHOSPHATASE 66 U/L (40-129); ALT/SGPT 11 U/L (7.0-40); AST/SGOT 13 U/L (<34); BILIRUBIN,TOTAL 0.2 MG/DL (0.3-1.2); BLOOD UREA NITROGEN 23 MG/DL (9-23); CALCIUM LEVEL 8.9 MG/DL (8.3-10.6); CARBON DIOXIDE LEVEL 30 MMOL/L (20-31); CHLORIDE LEVEL 101 MMOL/L (98-107); CREATININE FOR GFR 1.09 MG/DL (0.70-1.30); GLOMERULAR FILTRATION RATE > 60.0 (>35); GLUCOSE, FASTING 181 MG/DL (74-106); MAGNESIUM LEVEL 2.3 MG/DL (1.8-2.4); POTASSIUM SERUM 4.4 MMOL/L (3.5-5.1); SODIUM LEVEL 138 MMOL/L (136-145); TOTAL PROTEIN 6.1 G/DL (5.7-8.2)
[2025-01-14] MEDS: HumuLIN N INSULIN (NovoLIN N) PER UNIT SC SCH (08:20)
[2025-01-14] MEDS: methylPREDNISolone 40MG 1ML VIAL IV SCH (08:22)
[2025-01-14] MEDS: MOM 30ML SUSPENSION UDC PO SCH (08:46)
[2025-01-14 08:47] VITALS: BP 175/67; TEMP 97.7; O2SAT 90
[2025-01-14] MEDS ORDERED: BISACODYL 10MG SUPP PR SCH ×2 (09:00→21:00)
[2025-01-14 12:00] VITALS: TEMP 97.9; O2SAT 97
[2025-01-14] MEDS: **hydrALAZINE** 10 MG TAB PO SCH (13:26)
[2025-01-14] MEDS: MAGNESIUM CITRATE 300ML BTL PO ONE (13:27)
[2025-01-14] MEDS: SENOKOT S TAB PO SCH (13:27)
[2025-01-14] MEDS: FLEET ENEMA PR ONE (15:32)
[2025-01-14 19:36] VITALS: BP 111/67; TEMP 98.4; O2SAT 99
[2025-01-14] MEDS: BISACODYL 10MG SUPP PR SCH (21:00)
[2025-01-14 23:44] VITALS: BP 127/66; TEMP 97.7; O2SAT 95
[2025-01-15] MEDS: RAMELTEON 8 MG TAB (ROZEREM) PO PRN (01:31)
[2025-01-15 03:50] VITALS: BP 159/58; TEMP 98.2; O2SAT 96
[2025-01-15 05:03] LABS: HEMOGLOBIN 8.7 g/dl (13.5-17.5); MEAN CORPUSCULAR HEMOGLOBIN 30.3 pg (27.0-33.0); MEAN CORPUSCULAR HGB CONC 31.1 g/dl (32.0-36.5); MEAN CORPUSCULAR VOLUME 97.6 fl (80.0-96.0); PLATELET COUNT, AUTOMATED 257 10^3/uL (150-450); RED BLOOD COUNT 2.87 10^6/uL (4.30-6.10); WHITE BLOOD COUNT 7.7 10^3/uL (4.0-10.0)
[2025-01-15 05:28] LABS: ALKALINE PHOSPHATASE 56 U/L (40-129); ALT/SGPT 10 U/L (7.0-40); AST/SGOT 10 U/L (<34); BILIRUBIN,TOTAL 0.2 MG/DL (0.3-1.2); BLOOD UREA NITROGEN 19 MG/DL (9-23); CALCIUM LEVEL 7.9 MG/DL (8.3-10.6); CARBON DIOXIDE LEVEL 31 MMOL/L (20-31); CHLORIDE LEVEL 106 MMOL/L (98-107); CREATININE FOR GFR 0.99 MG/DL (0.70-1.30); GLOMERULAR FILTRATION RATE > 60.0 (>35); GLUCOSE, FASTING 223 MG/DL (74-106); SODIUM LEVEL 140 MMOL/L (136-145); TOTAL PROTEIN 5.2 G/DL (5.7-8.2)
[2025-01-15 08:00] VITALS: BP 157/62; TEMP 99.1; O2SAT 98
[2025-01-15 10:14] VITALS: TEMP 99.3
[2025-01-15 12:00] VITALS: BP 163/63; TEMP 97.7; O2SAT 96
[2025-01-15 19:40] VITALS: BP 166/66; TEMP 97.9; O2SAT 98
[2025-01-15] MEDS ORDERED: LEVALBUTEROL 1.25MG 0.5ML CONCENTRATE NEB INH PRN (21:20)
[2025-01-15 21:50] LABS: VENOUS BASE EXCESS 0.9 (-2.0-2.0); VENOUS HCO3 23.9 MMOL/L (23.0-27.0); VENOUS O2 SATURATION 99.1 % (60.0-80.0); VENOUS PARTIAL PRESSURE CO2 32.3 mmHg (38.0-50.0); VENOUS PARTIAL PRESSURE O2 129.9 mmHg (30.0-50.0); VENOUS PH 7.487 UNITS (7.330-7.430); VENOUS STANDARD HCO3 25.3 MMOL/L; VENOUS TOTAL CO2 24.9 MMOL/L (24.0-28.0)
[2025-01-15] MEDS: FUROSEMIDE 20MG/2ML VIAL IV ONE (22:11)
[2025-01-15 22:28] LABS: BLOOD UREA NITROGEN 17 MG/DL (9-23); CARBON DIOXIDE LEVEL 29 MMOL/L (20-31); CHLORIDE LEVEL 106 MMOL/L (98-107); GLOMERULAR FILTRATION RATE > 60.0 (>35); GLUCOSE, FASTING 206 MG/DL (74-106); MAGNESIUM LEVEL 2.4 MG/DL (1.8-2.4); POTASSIUM SERUM 4.2 MMOL/L (3.5-5.1); SODIUM LEVEL 139 MMOL/L (136-145)
[2025-01-15 23:20] VITALS: BP 135/55; TEMP 98.1; O2SAT 100
[2025-01-16] MEDS: FUROSEMIDE 20MG/2ML VIAL IV ONE (03:19)
[2025-01-16 03:30] VITALS: BP 160/68; TEMP 98.6; O2SAT 98
[2025-01-16 06:25] LABS: ALKALINE PHOSPHATASE 59 U/L (40-129); ALT/SGPT 12 U/L (7.0-40); AST/SGOT 11 U/L (<34); BILIRUBIN,TOTAL 0.2 MG/DL (0.3-1.2); BLOOD UREA NITROGEN 16 MG/DL (9-23); CALCIUM LEVEL 8.1 MG/DL (8.3-10.6); CARBON DIOXIDE LEVEL 29 MMOL/L (20-31); CHLORIDE LEVEL 105 MMOL/L (98-107); CREATININE FOR GFR 0.99 MG/DL (0.70-1.30); GLOMERULAR FILTRATION RATE > 60.0 (>35); GLUCOSE, FASTING 144 MG/DL (74-106); POTASSIUM SERUM 4.1 MMOL/L (3.5-5.1); SODIUM LEVEL 140 MMOL/L (136-145); TOTAL PROTEIN 5.4 G/DL (5.7-8.2)
[2025-01-16 08:00] VITALS: BP 162/69; TEMP 97.9; O2SAT 96
[2025-01-16] MEDS: predniSONE 20 MG TAB PO SCH (09:06)
[2025-01-16 12:00] VITALS: BP 172/70; TEMP 98.1; O2SAT 98
[2025-01-16] MEDS: MIRALAX *UNIT DOSE* 17GM PACKET PO ONE (14:59)
[2025-01-16] MEDS: **hydrALAZINE** 10 MG TAB PO SCH (15:00)
[2025-01-16 16:00] VITALS: BP 169/68; TEMP 97.7; O2SAT 98
[2025-01-16 20:00] VITALS: BP 168/67; TEMP 97.3; O2SAT 99
[2025-01-16] MEDS ORDERED: PILL CUTTER 1 EACH XX ONE (20:17)
[2025-01-16] MEDS: MORPHINE SULFATE TAB IMM. REL. 15 MG PO PRN (20:24)
[2025-01-16 23:40] VITALS: BP 164/67; TEMP 97.9; O2SAT 100
[2025-01-17 02:10] VITALS: BP 150/65
[2025-01-17 04:00] VITALS: BP 158/65; TEMP 97.3; O2SAT 93
[2025-01-17 06:15] LABS: HEMATOCRIT 31.6 % (42.0-52.0); HEMOGLOBIN 9.9 g/dl (13.5-17.5); MEAN CORPUSCULAR HEMOGLOBIN 30.7 pg (27.0-33.0); MEAN CORPUSCULAR HGB CONC 31.3 g/dl (32.0-36.5); MEAN CORPUSCULAR VOLUME 97.8 fl (80.0-96.0); PLATELET COUNT, AUTOMATED 301 10^3/uL (150-450); RED BLOOD COUNT 3.23 10^6/uL (4.30-6.10); WHITE BLOOD COUNT 10.5 10^3/uL (4.0-10.0)
[2025-01-17 07:16] LABS: ALBUMIN 2.1 G/DL (3.2-5.2); ALKALINE PHOSPHATASE 69 U/L (40-129); ALT/SGPT 12 U/L (7.0-40); AST/SGOT 13 U/L (<34); BILIRUBIN,TOTAL 0.3 MG/DL (0.3-1.2); BLOOD UREA NITROGEN 15 MG/DL (9-23); CALCIUM LEVEL 8.1 MG/DL (8.3-10.6); CARBON DIOXIDE LEVEL 30 MMOL/L (20-31); CHLORIDE LEVEL 102 MMOL/L (98-107); CREATININE FOR GFR 0.96 MG/DL (0.70-1.30); GLOMERULAR FILTRATION RATE > 60.0 (>35); GLUCOSE, FASTING 164 MG/DL (74-106); POTASSIUM SERUM 4.2 MMOL/L (3.5-5.1); SODIUM LEVEL 137 MMOL/L (136-145); TOTAL PROTEIN 5.7 G/DL (5.7-8.2)
[2025-01-17 08:00] VITALS: BP 167/64; TEMP 97.9; O2SAT 96
[2025-01-17] MEDS ORDERED: SENN-52 PO (08:12)
[2025-01-17] MEDS ORDERED: AMLO1TAB25 PO (08:12)
[2025-01-17] MEDS ORDERED: HYDR-161 PO (08:12)
[2025-01-17] MEDS ORDERED: PRED20TA PO (08:25)
[2025-01-17 08:44] VITALS: BP 167/79
[2025-01-17] MEDS: MIRALAX *UNIT DOSE* 17GM PACKET PO SCH (08:46)
[2025-01-17] MEDS: TORSEMIDE 10 MG TABLET PO SCH (08:47)
[2025-01-17] MEDS: PANTOPRAZOLE 40MG TAB (PROTONIX) PO SCH (08:47)
[2025-01-17] MEDS ORDERED: SENOKOT S TAB PO PRN (09:00)
[2025-01-17 12:00] VITALS: BP 166/65; TEMP 97.9; O2SAT 97
[2025-01-18 06:03] LABS: T P ELECTROPHORESIS SO 5.8 g/dL (6.1-8.1)
[2025-01-19 06:18] LABS: ALBUMIN SPEP 2.7 g/dL (3.8-4.8); ALPHA-1-GLOBULINS SO 0.3 g/dL (0.2-0.3); ALPHA-2-GLOBULINS SO 0.8 g/dL (0.5-0.9); BETA 2 GLOBULIN 0.5 g/dL (0.2-0.5); BETA-GLOBULIN SO 0.3 g/dL (0.4-0.6); GAMMA GLOBULINS SO 1.3 g/dL (0.8-1.7)
== END 2025-01-17 13:56 | disposition home health service (06) | DRG 197 ==
LOC: M ED 12:07 → EDBD 12:07 → M ED INP 15:24 → M MSPAV 21:46
PROVIDERS: ADMIT Student in an Organized Health Care Education/Training Program; ATTEND Internal Medicine
DX: J84.116 Cryptogenic organizing pneumonia (principal); J96.11 Chronic respiratory failure with hypoxia; E87.3 Alkalosis; I13.0 Hypertensive heart and chronic kidney disease with heart failure and stage 1 through stage 4 chronic kidney disease, or unspecified chronic kidney disease; A31.0 Pulmonary mycobacterial infection; I50.32 Chronic diastolic (congestive) heart failure; E11.51 Type 2 diabetes mellitus with diabetic peripheral angiopathy without gangrene; I25.10 Atherosclerotic heart disease of native coronary artery without angina pectoris; N18.30 Chronic kidney disease, stage 3 unspecified; E78.5 Hyperlipidemia, unspecified; E11.22 Type 2 diabetes mellitus with diabetic chronic kidney disease; N40.0 Benign prostatic hyperplasia without lower urinary tract symptoms; J84.9 Interstitial pulmonary disease, unspecified; D64.9 Anemia, unspecified; K59.00 Constipation, unspecified; E11.40 Type 2 diabetes mellitus with diabetic neuropathy, unspecified; R11.2 Nausea with vomiting, unspecified; E87.5 Hyperkalemia; K21.9 Gastro-esophageal reflux disease without esophagitis; E83.52 Hypercalcemia; E86.0 Dehydration; H53.8 Other visual disturbances; E11.65 Type 2 diabetes mellitus with hyperglycemia; R53.1 Weakness; R53.81 Other malaise; J47.9 Bronchiectasis, uncomplicated; E11.319 Type 2 diabetes mellitus with unspecified diabetic retinopathy without macular edema; Z89.422 Acquired absence of other left toe(s); Z79.82 Long term (current) use of aspirin; Z79.4 Long term (current) use of insulin; Z79.891 Long term (current) use of opiate analgesic; Z90.49 Acquired absence of other specified parts of digestive tract; Z99.81 Dependence on supplemental oxygen; Z79.899 Other long term (current) drug therapy; Z96.651 Presence of right artificial knee joint; Z95.5 Presence of coronary angioplasty implant and graft; Z98.41 Cataract extraction status, right eye; Z98.42 Cataract extraction status, left eye

== ENCOUNTER 2025-01-29 06:27 | Inpatient (IN) | payer MEDICARE ==
[~2025-01-29] VITALS: Ht 175.3 cm; Wt 83.3 kg
[2025-01-29] VITALS (13 sets, daily range): BP systolic 132–148; BP diastolic 60–67; TEMP 98.2–98.5; O2SAT 94–100
[~2025-01-29 06:27] MED LIST changes: +GABA-1490 PO; +HYDR-161 PO; +SENN-52 PO
[2025-01-29] MEDS ORDERED: FUROSEMIDE 100MG/10ML VIAL As Ordered ONE (06:36)
[2025-01-29] MEDS: FUROSEMIDE 100MG/10ML VIAL IV ONE (06:37)
[2025-01-29 06:44] LABS: ABG BASE EXCESS -1.4 (-2.0-2.0); ABG HCO3 24.9 MMOL/L (22.0-26.0); ABG O2 SATURATION 94.7 % (95.0-99.0); ABG PARTIAL PRESSURE CO2 48.7 mmHg (35.0-45.0); ABG PARTIAL PRESSURE O2 76.5 mmHg (75.0-100.0); ABG STANDARD HCO3 23.2 MMOL/L. (22.0-26.0); ABG TOTAL CO2 26.4 MMOL/L (23.0-31.0); ABG pH (ARTERIAL) 7.327 UNITS (7.350-7.450)
[2025-01-29] MEDS: IPRATROPIUM 0.5MG/ALBUTEROL 2.5MG INH SOL UD 3ML NEB ONE (07:01)
[2025-01-29 07:02] LABS: BASO # 0.1 10^3/uL (0.0-0.2); BASO % 0.6 % (0.0-1.0); EOS # 0.9 10^3/uL (0.0-0.5); EOS % 4.2 % (0.0-3.0); HEMATOCRIT 40.8 % (42.0-52.0); HEMOGLOBIN 12.1 g/dl (13.5-17.5); LYMPH # 1.8 10^3/uL (1.5-5.0); LYMPH % 8.5 % (24.0-44.0); MEAN CORPUSCULAR HEMOGLOBIN 30.4 pg (27.0-33.0); MEAN CORPUSCULAR HGB CONC 29.7 g/dl (32.0-36.5); MEAN CORPUSCULAR VOLUME 102.5 fl (80.0-96.0); MONO # 1.2 10^3/uL (0.0-0.8); MONO % 5.5 % (2.0-8.0); NEUTROPHILS # 17.5 10^3/uL (1.5-8.5); NEUTROPHILS % 80.5 % (36.0-66.0); PLATELET COUNT, AUTOMATED 402 10^3/uL (150-450); RED BLOOD COUNT 3.98 10^6/uL (4.30-6.10); WHITE BLOOD COUNT 21.7 10^3/uL (4.0-10.0)
[2025-01-29] MEDS: LIDOCAINE 2% 5ML JELLY UROJET TOP ONE (07:35)
[2025-01-29] MEDS: cefTRIAXone SOD 1 GM in DEXTROSE 5% (D5W) ADV/MINI-BAG 50 ML IV ONE (07:45)
[2025-01-29] MEDS: methylPREDNISolone 125MG 2ML VIAL IV ONE (07:45)
[2025-01-29 07:47] LABS: PROCALCITONIN 0.1 ng/ml
[2025-01-29 07:53] LABS: ALBUMIN 2.8 G/DL (3.2-5.2); BILIRUBIN,DIRECT 0.2 MG/DL (<0.4); BILIRUBIN,TOTAL 0.6 MG/DL (0.3-1.2); CALCIUM LEVEL 8.2 MG/DL (8.3-10.6); CK-MB VALUE MASS 1.1 NG/ML (<3.6); CREATININE FOR GFR 1.45 MG/DL (0.70-1.30); GLOMERULAR FILTRATION RATE 47.8 (>35); MB/CK RELATIVE INDEX 3.23 (< OR =4); POTASSIUM SERUM 6.2 MMOL/L (3.5-5.1); TOTAL PROTEIN 6.7 G/DL (5.7-8.2)
[2025-01-29] MEDS: CALCIUM CHLORIDE 10% 1 GM/10 ML SYR IV ONE (08:18)
[2025-01-29] MEDS: SODIUM BICARBONATE 8.4% INJ 50ML SYRINGE IV ONE (08:18)
[2025-01-29] MEDS: DEXTROSE 50% 50ML SYRINGE IV ONE (08:18)
[2025-01-29] MEDS: PATIROMER SORBITEX CALCIUM 8.4 GM POWDER PACKET (VELTASSA) PO ONE (08:18)
[2025-01-29] MEDS: [UNRECOGNIZED DRUG - OTHER] IV STA (08:19)
[2025-01-29] MEDS: NS 0.9% IV STA (08:19)
[2025-01-29] MEDS: HumuLIN R (REGULAR) INSULIN (NovoLIN R) **100U/ML** PER UNIT IV ONE (08:19)
[2025-01-29] MEDS: AZITHROMYCIN INJ 500 MG, VIAL MATE ADAPTER 1 EACH in NS 250 ML IV ONE (08:52)
[2025-01-29] MEDS: DOCUSATE SODIUM 100MG CAPSULE PO SCH (09:00)
[2025-01-29] MEDS: MIRALAX *UNIT DOSE* 17GM PACKET PO SCH (09:00)
[2025-01-29] MEDS ORDERED: HYDR-161 PO (09:31)
[2025-01-29] MEDS ORDERED: SENN-121 PO (09:31)
[2025-01-29] MEDS ORDERED: PRED10TA2 PO (09:31)
[2025-01-29] MEDS ORDERED: AMLO1TAB25 PO (09:31)
[2025-01-29] MEDS ORDERED: HOME MED LIST COMPLETE! XX SCH (09:35)
[2025-01-29] MEDS ORDERED: ISOVUE-370 76% 100ML VIAL As Ordered ONE (09:40)
[2025-01-29 11:42] LABS: PROCALCITONIN 1.34 ng/ml
[2025-01-29] MEDS: FINASTERIDE 5MG TAB PO SCH (12:04)
[2025-01-29] MEDS: FERROUS SULFATE 325MG TAB PO SCH (12:05)
[2025-01-29] MEDS: ASPIRIN 81MG ENTERIC TABLET PO SCH (12:05)
[2025-01-29] MEDS: ETHAMBUTOL 400MG TAB PO SCH (12:06)
[2025-01-29] MEDS: PANTOPRAZOLE 40MG TAB (PROTONIX) PO SCH (12:06)
[2025-01-29] MEDS: SENOKOT S TAB PO PRN (12:14)
[2025-01-29 12:30] LABS: CALCIUM LEVEL 8.4 MG/DL (8.3-10.6); CREATININE FOR GFR 1.52 MG/DL (0.70-1.30); GLOMERULAR FILTRATION RATE 45.2 (>35); POTASSIUM SERUM 5.8 MMOL/L (3.5-5.1)
[2025-01-29] MEDS: IPRATROPIUM 0.5MG/ALBUTEROL 2.5MG INH SOL UD 3ML INH ONE (13:38)
[2025-01-29] MEDS ORDERED: IPRATROPIUM 0.5MG/ALBUTEROL 2.5MG INH SOL UD 3ML INH SCH (14:00)
[2025-01-29] MEDS: BUDESONIDE 0.5 MG/2 ML INHALATION SUSPENSION NEB SCH (15:13)
[2025-01-29] MEDS: IPRATROPIUM 0.5MG/ALBUTEROL 2.5MG INH SOL UD 3ML INH SCH (15:14)
[2025-01-29] MEDS ORDERED: GLUCAGON INJ 1MG VIAL SC PRN (15:40)
[2025-01-29] MEDS ORDERED: GLUCOSE 4 GM CHEW PO PRN (15:40)
[2025-01-29] MEDS ORDERED: DEXTROSE 50% 50ML SYRINGE IV PRN (15:40)
[2025-01-29] MEDS: **hydrALAZINE** 10 MG TAB PO SCH (16:00)
[2025-01-29] MEDS ORDERED: INSULIN LISPRO (NovoLOG) PER UNIT SC SCH ×2 (17:30→21:00)
[2025-01-29] MEDS: PIPERACILLIN/TAZOBACTAM SOD 4.5 GM in DEXTROSE 5% (D5W) ADV/MINI-BAG 50 ML IV SCH (18:24)
[2025-01-29] MEDS: INSULIN LISPRO (NovoLOG) PER UNIT SC SCH (18:32)
[2025-01-29] MEDS: GABAPENTIN 300 MG CAP PO SCH (21:00)
[2025-01-29] MEDS: TAMSULOSIN 0.4 MG CAP PO SCH (21:00)
[2025-01-29] MEDS: SIMVASTATIN 10 MG TAB PO SCH (21:00)
[2025-01-29] MEDS ORDERED: FUROSEMIDE 40MG/4ML VIAL IV SCH (21:00)
[2025-01-29] MEDS: SENNA 8.6 MG TAB (SENOKOT) PO SCH (21:00)
[2025-01-29] MEDS: MORPHINE SULFATE TAB IMM. REL. 15 MG PO SCH (21:00)
[2025-01-29] MEDS: PANTOPRAZOLE 40MG VIAL IV SCH (21:32)
[2025-01-29] MEDS: LATANOPROST 0.005% OPHTH SOLN 2.5 ML OU SCH (21:33)
[2025-01-29 21:54] LABS: ABG BASE EXCESS 4.9 (-2.0-2.0); ABG HCO3 30.2 MMOL/L (22.0-26.0); ABG O2 SATURATION 98.5 % (95.0-99.0); ABG PARTIAL PRESSURE O2 128.4 mmHg (75.0-100.0); ABG STANDARD HCO3 28.9 MMOL/L. (22.0-26.0); ABG TOTAL CO2 31.6 MMOL/L (23.0-31.0); ABG pH (ARTERIAL) 7.416 UNITS (7.350-7.450)
[2025-01-30] VITALS (15 sets, daily range): BP systolic 140–162; BP diastolic 65–99; TEMP 98.1–98.9; O2SAT 93–100
[2025-01-30] MEDS: MORPHINE 2 MG/ML 1ML VIAL IV ONE ×2 (00:39→03:14)
[2025-01-30 01:22] LABS: APPEARANCE, URINE CLEAR (CLEAR); BACTERIA, URINE AUTO NEGATIVE (NEGATIVE); BILIRUBIN, URINE AUTO NEGATIVE (NEGATIVE); BLOOD, URINE BLOOD NEGATIVE (NEGATIVE); COLOR, URINE YELLOW (YELLOW); GLUCOSE, URINE (UA) AUTO NEGATIVE (NEGATIVE); KETONE, URINE AUTO NEGATIVE (NEGATIVE); LEUKOCYTE ESTERASE, URINE AUTO NEGATIVE (NEGATIVE); NITRITE, URINE AUTO NEGATIVE (NEGATIVE); PROTEIN, URINE AUTO 2+ mg/dL (NEGATIVE); RBC, URINE AUTO 1 /HPF (0-3); SPECIFIC GRAVITY URINE AUTO 1.026 (1.002-1.035); SQUAMOUS EPITHELIAL CELL UR AU 0 /HPF (0-6); UROBILINOGEN, URINE AUTO 0.2 mg/dL (0.0-2.0); WBC, URINE AUTO 5 /HPF (0-3)
[2025-01-30] MEDS: diphenhydrAMINE 50MG/ML VIAL IV ONE (03:14)
[2025-01-30 05:54] LABS: HEMATOCRIT 33.4 % (42.0-52.0); MEAN CORPUSCULAR HEMOGLOBIN 30.5 pg (27.0-33.0); MEAN CORPUSCULAR HGB CONC 30.2 g/dl (32.0-36.5); MEAN CORPUSCULAR VOLUME 100.9 fl (80.0-96.0); PLATELET COUNT, AUTOMATED 310 10^3/uL (150-450); RED BLOOD COUNT 3.31 10^6/uL (4.30-6.10)
[2025-01-30 05:56] LABS: HEMOGLOBIN 10.1 g/dl (13.5-17.5)
[2025-01-30 06:13] LABS: PROCALCITONIN 4.1 ng/ml
[2025-01-30 06:15] LABS: ALBUMIN 2.5 G/DL (3.2-5.2); BILIRUBIN,TOTAL 0.6 MG/DL (0.3-1.2); CALCIUM LEVEL 8.6 MG/DL (8.3-10.6); CREATININE FOR GFR 1.53 MG/DL (0.70-1.30); GLOMERULAR FILTRATION RATE 44.8 (>35); MAGNESIUM LEVEL 2.5 MG/DL (1.8-2.4); POTASSIUM SERUM 5.9 MMOL/L (3.5-5.1); TOTAL PROTEIN 6.2 G/DL (5.7-8.2)
[2025-01-30] MEDS: DEXTROSE 50% 50ML SYRINGE IV STA (06:57)
[2025-01-30] MEDS: HumuLIN R (REGULAR) INSULIN (NovoLIN R) **100U/ML** PER UNIT IV STA (06:58)
[2025-01-30] MEDS ORDERED: SOD POLYSTYRENE SULFONATE SUSP 15GM 60ML UD PO ONE (07:00)
[2025-01-30] MEDS: CALCIUM GLUCONATE 1,000 MG in DEXTROSE 5% (D5W) MINI-BAG PLU 100 ML IV ONE (07:54)
[2025-01-30] MEDS: predniSONE 20 MG TAB PO SCH (07:58)
[2025-01-30] MEDS: AZITHROMYCIN 250MG TABLET PO SCH (08:00)
[2025-01-30] MEDS: SOD POLYSTYRENE SULFONATE SUSP 30GM 120ML ENEMA PR ONE (08:00)
[2025-01-30] MEDS ORDERED: LanTUS (INSULIN GLARGINE INJ) 1 UNITS/0.01 ML SC SCH (09:00)
[2025-01-30] MEDS: FUROSEMIDE 40MG/4ML VIAL IV SCH (09:18)
[2025-01-30] MEDS: PATIROMER SORBITEX CALCIUM 8.4 GM POWDER PACKET (VELTASSA) PO SCH (14:35)
[2025-01-30] MEDS: INSULIN LISPRO (NovoLOG) PER UNIT SC SCH (21:51)
[2025-01-31] VITALS (9 sets, daily range): BP systolic 132–159; BP diastolic 60–79; TEMP 97.7–98.7; O2SAT 93–100
[2025-01-31 08:01] LABS: HEMATOCRIT 31.2 % (42.0-52.0); HEMOGLOBIN 9.6 g/dl (13.5-17.5); MEAN CORPUSCULAR HEMOGLOBIN 30.8 pg (27.0-33.0); MEAN CORPUSCULAR HGB CONC 30.8 g/dl (32.0-36.5); PLATELET COUNT, AUTOMATED 239 10^3/uL (150-450); RED BLOOD COUNT 3.12 10^6/uL (4.30-6.10); WHITE BLOOD COUNT 8.6 10^3/uL (4.0-10.0)
[2025-01-31 08:19] LABS: CK-MB VALUE MASS 1.2 NG/ML (<3.6)
[2025-01-31 08:20] LABS: MB/CK RELATIVE INDEX 3.07 (< OR =4)
[2025-01-31 08:21] LABS: ALBUMIN 2.3 G/DL (3.2-5.2); BILIRUBIN,TOTAL 0.5 MG/DL (0.3-1.2); CALCIUM LEVEL 8.7 MG/DL (8.3-10.6); CREATININE FOR GFR 1.47 MG/DL (0.70-1.30); POTASSIUM SERUM 5.1 MMOL/L (3.5-5.1)
[2025-01-31] MEDS: INSULIN LISPRO (NovoLOG) PER UNIT SC SCH (08:30)
[2025-01-31] MEDS: rifAMPin 150MG CAPSULE PO SCH (08:32)
[2025-01-31 13:30] LABS: PROCALCITONIN 2.62 ng/ml
[2025-01-31] MEDS: METOPROLOL TART 12.5 MG PER 1/2 TAB PO SCH (20:50)
[2025-01-31] MEDS: HEPARIN SOD (PORCINE) 5000UNITS/ML 1ML VIAL/SYRINGE SQ SCH (20:51)
[2025-02-01] MEDS ORDERED: PERMETHRIN 5% CREAM 60 GM TOP SCH
[2025-02-01] MEDS: ACETAMINOPHEN 325 MG TAB PO PRN (00:05)
[2025-02-01 03:10] VITALS: BP 135/63; TEMP 98.1; O2SAT 95
[2025-02-01 06:11] LABS: HEMATOCRIT 28.9 % (42.0-52.0); HEMOGLOBIN 8.7 g/dl (13.5-17.5); MEAN CORPUSCULAR HEMOGLOBIN 30.1 pg (27.0-33.0); MEAN CORPUSCULAR HGB CONC 30.1 g/dl (32.0-36.5); PLATELET COUNT, AUTOMATED 236 10^3/uL (150-450); RED BLOOD COUNT 2.89 10^6/uL (4.30-6.10)
[2025-02-01 06:34] LABS: ALKALINE PHOSPHATASE 91 U/L (40-129); ALT/SGPT < 9 U/L (7.0-40); AST/SGOT 12 U/L (<34); BILIRUBIN,TOTAL 0.4 MG/DL (0.3-1.2); BLOOD UREA NITROGEN 21 MG/DL (9-23); CALCIUM LEVEL 8.3 MG/DL (8.3-10.6); CARBON DIOXIDE LEVEL 32 MMOL/L (20-31); CHLORIDE LEVEL 100 MMOL/L (98-107); GLOMERULAR FILTRATION RATE 45.9 (>35); GLUCOSE, FASTING 153 MG/DL (74-106); POTASSIUM SERUM 4.9 MMOL/L (3.5-5.1); SODIUM LEVEL 139 MMOL/L (136-145); TOTAL PROTEIN 5.5 G/DL (5.7-8.2)
[2025-02-01 07:45] VITALS: BP 129/60; TEMP 98.1; O2SAT 90
[2025-02-01 08:02] LABS: CK-MB VALUE MASS < 1.0 NG/ML (<3.6)
[2025-02-01 08:03] LABS: CPK CREATINE PHOSPHOKINASE 28 U/L (46-171); MB/CK RELATIVE INDEX 3.57 (< OR =4)
[2025-02-01] MEDS: predniSONE 10MG TAB PO SCH (08:24)
[2025-02-01 08:25] VITALS: BP 129/60
[2025-02-01] MEDS: **SEND HOME SECOND DOSE OF PERMETHRIN** MISC XX SCH (09:00)
[2025-02-01] MEDS: LanTUS (INSULIN GLARGINE INJ) 1 UNITS/0.01 ML SC SCH (09:41)
[2025-02-01 12:00] VITALS: BP 145/63; TEMP 98.2; O2SAT 99
[2025-02-01] MEDS ORDERED: METO1TAB87 PO (12:59)
[2025-02-01] MEDS ORDERED: AMOX875T2 PO (13:00)
[2025-02-01] MEDS: PERMETHRIN 5% CREAM 60 GM TOP ONE (13:07)
== END 2025-02-01 16:00 | disposition home or self-care (01) | DRG 871 ==
LOC: M ED 06:27 → M ED INP 10:12 → M PCU 11:45
PROVIDERS: ADMIT Student in an Organized Health Care Education/Training Program; ATTEND Internal Medicine
PROC: B246ZZZ Ultrasonography of Right and Left Heart (ICD-10-PCS; principal; 2025-01-29)
DX: A41.9 Sepsis, unspecified organism (principal); J69.0 Pneumonitis due to inhalation of food and vomit; J96.21 Acute and chronic respiratory failure with hypoxia; I50.33 Acute on chronic diastolic (congestive) heart failure; J84.116 Cryptogenic organizing pneumonia; I13.0 Hypertensive heart and chronic kidney disease with heart failure and stage 1 through stage 4 chronic kidney disease, or unspecified chronic kidney disease; I24.89 Other forms of acute ischemic heart disease; N17.9 Acute kidney failure, unspecified; C91.10 Chronic lymphocytic leukemia of B-cell type not having achieved remission; R64 Cachexia; I25.10 Atherosclerotic heart disease of native coronary artery without angina pectoris; N18.30 Chronic kidney disease, stage 3 unspecified; E11.22 Type 2 diabetes mellitus with diabetic chronic kidney disease; R13.10 Dysphagia, unspecified; E78.5 Hyperlipidemia, unspecified; E11.51 Type 2 diabetes mellitus with diabetic peripheral angiopathy without gangrene; K59.00 Constipation, unspecified; Z99.81 Dependence on supplemental oxygen; Z96.651 Presence of right artificial knee joint; Z90.49 Acquired absence of other specified parts of digestive tract; Z89.422 Acquired absence of other left toe(s); Z95.5 Presence of coronary angioplasty implant and graft; Z98.41 Cataract extraction status, right eye; Z98.42 Cataract extraction status, left eye; Z79.82 Long term (current) use of aspirin; Z79.4 Long term (current) use of insulin; Z79.891 Long term (current) use of opiate analgesic

== ENCOUNTER 2025-02-04 10:14 | Inpatient (IN) | payer MEDICARE ==
[~2025-02-04] VITALS: Ht 175.3 cm; Wt 80.0 kg
[~2025-02-04 10:14] MED LIST changes: -FLOM0.4C39 PO; +METO1TAB87 PO; +SENN-121 PO; +TAMS-18 PO
[2025-02-04 10:55] LABS: BASO # 0.1 10^3/uL (0.0-0.2); EOS # 0.9 10^3/uL (0.0-0.5); EOS % 11.7 % (0.0-3.0); HEMATOCRIT 35.4 % (42.0-52.0); HEMOGLOBIN 10.6 g/dl (13.5-17.5); LYMPH % 12.2 % (24.0-44.0); MEAN CORPUSCULAR HEMOGLOBIN 30.3 pg (27.0-33.0); MEAN CORPUSCULAR HGB CONC 29.9 g/dl (32.0-36.5); MEAN CORPUSCULAR VOLUME 101.1 fl (80.0-96.0); MONO # 0.9 10^3/uL (0.0-0.8); MONO % 11.9 % (2.0-8.0); NEUTROPHILS # 4.9 10^3/uL (1.5-8.5); NEUTROPHILS % 62.8 % (36.0-66.0); PLATELET COUNT, AUTOMATED 324 10^3/uL (150-450); WHITE BLOOD COUNT 7.8 10^3/uL (4.0-10.0)
[2025-02-04] MEDS: methylPREDNISolone 125MG 2ML VIAL IV ONE (11:09)
[2025-02-04] MEDS: IPRATROPIUM 0.5MG/ALBUTEROL 2.5MG INH SOL UD 3ML NEB ONE (11:16)
[2025-02-04] MEDS: ALBUTEROL SULFATE 2.5MG/0.5ML INH CONCENTRATE NEB SOLN INH ONE (11:16)
[2025-02-04 11:17] LABS: ABG BASE EXCESS 4.8 (-2.0-2.0); ABG HCO3 30.8 MMOL/L (22.0-26.0); ABG O2 SATURATION 97.9 % (95.0-99.0); ABG PARTIAL PRESSURE CO2 52.1 mmHg (35.0-45.0); ABG PARTIAL PRESSURE O2 100.8 mmHg (75.0-100.0); ABG STANDARD HCO3 28.8 MMOL/L. (22.0-26.0); ABG TOTAL CO2 32.4 MMOL/L (23.0-31.0); ABG pH (ARTERIAL) 7.389 UNITS (7.350-7.450)
[2025-02-04 11:21] LABS: CK-MB VALUE MASS 1.3 NG/ML (<3.6)
[2025-02-04 11:23] LABS: ALBUMIN 2.5 G/DL (3.2-5.2); BILIRUBIN,DIRECT 0.1 MG/DL (<0.4); BILIRUBIN,TOTAL 0.3 MG/DL (0.3-1.2); CALCIUM LEVEL 8.9 MG/DL (8.3-10.6); CREATININE FOR GFR 1.29 MG/DL (0.70-1.30); MAGNESIUM LEVEL 2.3 MG/DL (1.8-2.4); POTASSIUM SERUM 5.8 MMOL/L (3.5-5.1); TOTAL PROTEIN 6.6 G/DL (5.7-8.2)
[2025-02-04 11:25] LABS: THYROID STIMULATING HORMONE 2.132 uIU/ML (0.55-4.78)
[2025-02-04 11:27] LABS: MB/CK RELATIVE INDEX 3.61 (< OR =4)
[2025-02-04] MEDS ORDERED: ISOVUE-370 76% 100ML VIAL As Ordered ONE (11:39)
[2025-02-04] MEDS: DEXTROSE 50% 50ML SYRINGE IV ONE (12:08)
[2025-02-04] MEDS: SODIUM BICARBONATE 8.4% INJ 50ML SYRINGE IV ONE (12:08)
[2025-02-04] MEDS: HumuLIN R (REGULAR) INSULIN (NovoLIN R) **100U/ML** PER UNIT IV ONE (12:08)
[2025-02-04] MEDS: CALCIUM GLUCONATE 1,000MG/10ML VIAL (100MG/ML) IV ONE (12:08)
[2025-02-04 12:24] LABS: CK-MB VALUE MASS 1.3 NG/ML (<3.6)
[2025-02-04 12:27] LABS: MB/CK RELATIVE INDEX 3.33 (< OR =4)
[2025-02-04] MEDS: FUROSEMIDE 40MG/4ML VIAL IV ONE (12:34)
[2025-02-04 13:02] LABS: PROCALCITONIN 0.4 ng/ml
[2025-02-04] MEDS: PIPERACILLIN/TAZOBACTAM SOD 3.375 GM in DEXTROSE 5% (D5W) ADV/MINI-BAG 50 ML IV ONE (13:43)
[2025-02-04 14:06] LABS: CALCIUM LEVEL 9.2 MG/DL (8.3-10.6); CREATININE FOR GFR 1.24 MG/DL (0.70-1.30); GLOMERULAR FILTRATION RATE 57.7 (>35); POTASSIUM SERUM 4.9 MMOL/L (3.5-5.1)
[2025-02-04] MEDS ORDERED: GLUCAGON INJ 1MG VIAL SC PRN (14:15)
[2025-02-04 15:17] VITALS: BP 163/69; TEMP 97; O2SAT 95
[2025-02-04] MEDS ORDERED: METO25TA4 PO (15:26)
[2025-02-04] MEDS ORDERED: AMOX875T2 PO (15:26)
[2025-02-04] MEDS ORDERED: HOME MED LIST COMPLETE! XX SCH (15:30)
[2025-02-04 16:09] LABS: INR 1.22; PARTIAL THROMBOPLASTIN TIME 31.1 SECONDS (24.8-34.2); PROTHROMBIN TIME 15.7 SECONDS (12.5-14.5)
[2025-02-04] MEDS: predniSONE 10MG TAB PO SCH (16:56)
[2025-02-04] MEDS: ENOXAPARIN 40MG/0.4ML SYRINGE (J1650 PER 10MG) SC SCH (16:57)
[2025-02-04] MEDS: FUROSEMIDE 20MG/2ML VIAL IV SCH (16:57)
[2025-02-04] MEDS: LanTUS (INSULIN GLARGINE INJ) 1 UNITS/0.01 ML SC SCH (16:58)
[2025-02-04] MEDS: INSULIN LISPRO (NovoLOG) PER UNIT SC SCH ×2 (16:59→21:00)
[2025-02-04] MEDS: LATANOPROST 0.005% OPHTH SOLN 2.5 ML OU SCH (20:35)
[2025-02-04] MEDS: TIMOLOL MALEATE 0.5% OPHTH SOLN 5 ML OU SCH (20:35)
[2025-02-04] MEDS: SIMBRINZA OPTHALMIC OU SCH (20:35)
[2025-02-04] MEDS: GABAPENTIN 300 MG CAP PO SCH (20:36)
[2025-02-04] MEDS: TAMSULOSIN 0.4 MG CAP PO SCH (20:36)
[2025-02-04] MEDS: AUGMENTIN 875 MG TAB PO SCH (20:36)
[2025-02-04] MEDS: PANTOPRAZOLE 40MG TAB (PROTONIX) PO SCH (20:37)
[2025-02-04] MEDS: SIMVASTATIN 10 MG TAB PO SCH (20:37)
[2025-02-04] MEDS: DOCUSATE SODIUM 100MG CAPSULE PO SCH (20:37)
[2025-02-04 20:40] VITALS: BP 160/68; TEMP 97.5; O2SAT 97
[2025-02-04] MEDS: MORPHINE SULFATE TAB IMM. REL. 30 MG PO SCH (20:40)
[2025-02-04] MEDS: METOPROLOL TART 12.5 MG PER 1/2 TAB PO SCH (20:40)
[2025-02-04] MEDS: **hydrALAZINE** 10 MG TAB PO SCH (20:41)
[2025-02-04 21:04] VITALS: O2SAT 94
[2025-02-04] MEDS: ANEXSIA, NORCO 7.5MG/325MG TABLET(HYDROCODONE/APAP) PO ONE (22:58)
[2025-02-05 03:57] VITALS: BP 149/63; TEMP 97.5; O2SAT 95
[2025-02-05 04:00] VITALS: O2SAT 93
[2025-02-05 06:24] LABS: HEMATOCRIT 34.2 % (42.0-52.0); HEMOGLOBIN 10.5 g/dl (13.5-17.5); MEAN CORPUSCULAR HEMOGLOBIN 30.1 pg (27.0-33.0); MEAN CORPUSCULAR HGB CONC 30.7 g/dl (32.0-36.5); PLATELET COUNT, AUTOMATED 319 10^3/uL (150-450); RED BLOOD COUNT 3.49 10^6/uL (4.30-6.10); WHITE BLOOD COUNT 8.3 10^3/uL (4.0-10.0)
[2025-02-05 06:48] LABS: ALBUMIN 2.3 G/DL (3.2-5.2); BILIRUBIN,TOTAL 0.3 MG/DL (0.3-1.2); CALCIUM LEVEL 8.4 MG/DL (8.3-10.6); CREATININE FOR GFR 1.29 MG/DL (0.70-1.30)
[2025-02-05] MEDS: ASPIRIN 81MG ENTERIC TABLET PO SCH (08:26)
[2025-02-05] MEDS: AZITHROMYCIN 250MG TABLET PO SCH (08:26)
[2025-02-05] MEDS: ETHAMBUTOL 400MG TAB PO SCH (08:26)
[2025-02-05] MEDS: FERROUS SULFATE 325MG TAB PO SCH (08:27)
[2025-02-05] MEDS: MAGNESIUM OXIDE 400MG TAB (MAG-OX) PO SCH (08:27)
[2025-02-05] MEDS: TORSEMIDE 10 MG TABLET PO SCH (08:27)
[2025-02-05] MEDS: FINASTERIDE 5MG TAB PO SCH (08:27)
[2025-02-05] MEDS: rifAMPin 150MG CAPSULE PO SCH (08:28)
[2025-02-05] MEDS: FUROSEMIDE 20MG/2ML VIAL IV SCH (08:35)
[2025-02-05] MEDS: MIRALAX *UNIT DOSE* 17GM PACKET PO SCH (08:36)
[2025-02-05] MEDS: ONDANSETRON 4MG 2ML VIAL IV PRN (10:45)
[2025-02-05 12:00] VITALS: BP 135/60; TEMP 97.5; O2SAT 94
[2025-02-05] MEDS: MOM 30ML SUSPENSION UDC PO SCH (17:28)
[2025-02-05] MEDS: SUCRALFATE SUSP 1GM/10ML UD PO SCH (17:28)
[2025-02-05 20:00] VITALS: BP 142/82; TEMP 98.2; O2SAT 97
[2025-02-05] MEDS: DOCUSATE SODIUM 100MG CAPSULE PO SCH (20:11)
[2025-02-06 04:00] VITALS: BP 131/53; TEMP 97.5; O2SAT 90
[2025-02-06 06:05] LABS: HEMATOCRIT 34.1 % (42.0-52.0); HEMOGLOBIN 10.4 g/dl (13.5-17.5); MEAN CORPUSCULAR HEMOGLOBIN 30.4 pg (27.0-33.0); MEAN CORPUSCULAR HGB CONC 30.5 g/dl (32.0-36.5); MEAN CORPUSCULAR VOLUME 99.7 fl (80.0-96.0); PLATELET COUNT, AUTOMATED 307 10^3/uL (150-450); RED BLOOD COUNT 3.42 10^6/uL (4.30-6.10); WHITE BLOOD COUNT 7.2 10^3/uL (4.0-10.0)
[2025-02-06 06:35] LABS: ALBUMIN 2.3 G/DL (3.2-5.2); ALKALINE PHOSPHATASE 108 U/L (40-129); ALT/SGPT < 9 U/L (7.0-40); AST/SGOT 9 U/L (<34); BILIRUBIN,TOTAL 0.3 MG/DL (0.3-1.2); BLOOD UREA NITROGEN 27 MG/DL (9-23); CALCIUM LEVEL 8.5 MG/DL (8.3-10.6); CARBON DIOXIDE LEVEL 34 MMOL/L (20-31); CHLORIDE LEVEL 96 MMOL/L (98-107); CREATININE FOR GFR 1.31 MG/DL (0.70-1.30); GLUCOSE, FASTING 153 MG/DL (74-106); POTASSIUM SERUM 5.2 MMOL/L (3.5-5.1); SODIUM LEVEL 138 MMOL/L (136-145)
[2025-02-06] MEDS: PATIROMER SORBITEX CALCIUM 8.4 GM POWDER PACKET (VELTASSA) PO ONE (08:21)
[2025-02-06 12:00] VITALS: BP 152/60; TEMP 97.2; O2SAT 95
[2025-02-06 20:52] VITALS: BP 152/58; TEMP 97.2; O2SAT 97
[2025-02-07 04:44] VITALS: BP 135/51; TEMP 97.5; O2SAT 94
[2025-02-07 05:54] LABS: HEMATOCRIT 33.9 % (42.0-52.0); HEMOGLOBIN 10.1 g/dl (13.5-17.5); MEAN CORPUSCULAR HEMOGLOBIN 29.9 pg (27.0-33.0); MEAN CORPUSCULAR HGB CONC 29.8 g/dl (32.0-36.5); MEAN CORPUSCULAR VOLUME 100.3 fl (80.0-96.0); PLATELET COUNT, AUTOMATED 361 10^3/uL (150-450); RED BLOOD COUNT 3.38 10^6/uL (4.30-6.10)
[2025-02-07 06:17] LABS: ALBUMIN 2.4 G/DL (3.2-5.2); ALKALINE PHOSPHATASE 104 U/L (40-129); ALT/SGPT < 9 U/L (7.0-40); AST/SGOT 9 U/L (<34); BILIRUBIN,TOTAL 0.3 MG/DL (0.3-1.2); BLOOD UREA NITROGEN 26 MG/DL (9-23); CALCIUM LEVEL 8.6 MG/DL (8.3-10.6); CARBON DIOXIDE LEVEL 38 MMOL/L (20-31); CHLORIDE LEVEL 94 MMOL/L (98-107); CREATININE FOR GFR 1.34 MG/DL (0.70-1.30); GLOMERULAR FILTRATION RATE 52.6 (>35); GLUCOSE, FASTING 164 MG/DL (74-106); POTASSIUM SERUM 5.1 MMOL/L (3.5-5.1); SODIUM LEVEL 136 MMOL/L (136-145); TOTAL PROTEIN 6.2 G/DL (5.7-8.2)
[2025-02-07] MEDS: FUROSEMIDE 100MG/10ML VIAL IV SCH (17:04)
[2025-02-07 20:06] VITALS: BP 157/58; TEMP 97.3; O2SAT 93
[2025-02-08 04:33] VITALS: BP 119/48; TEMP 97.3; O2SAT 99
[2025-02-08 05:54] LABS: HEMOGLOBIN 9.4 g/dl (13.5-17.5); MEAN CORPUSCULAR HEMOGLOBIN 30.4 pg (27.0-33.0); MEAN CORPUSCULAR HGB CONC 30.3 g/dl (32.0-36.5); MEAN CORPUSCULAR VOLUME 100.3 fl (80.0-96.0); PLATELET COUNT, AUTOMATED 337 10^3/uL (150-450); RED BLOOD COUNT 3.09 10^6/uL (4.30-6.10); WHITE BLOOD COUNT 5.7 10^3/uL (4.0-10.0)
[2025-02-08 06:26] LABS: ALBUMIN 2.2 G/DL (3.2-5.2); ALKALINE PHOSPHATASE 91 U/L (40-129); ALT/SGPT < 9 U/L (7.0-40); AST/SGOT 8 U/L (<34); BILIRUBIN,TOTAL 0.2 MG/DL (0.3-1.2); BLOOD UREA NITROGEN 29 MG/DL (9-23); CALCIUM LEVEL 8.2 MG/DL (8.3-10.6); CARBON DIOXIDE LEVEL 38 MMOL/L (20-31); CHLORIDE LEVEL 94 MMOL/L (98-107); CREATININE FOR GFR 1.44 MG/DL (0.70-1.30); GLOMERULAR FILTRATION RATE 48.2 (>35); GLUCOSE, FASTING 199 MG/DL (74-106); POTASSIUM SERUM 5.1 MMOL/L (3.5-5.1); SODIUM LEVEL 134 MMOL/L (136-145); TOTAL PROTEIN 5.6 G/DL (5.7-8.2)
[2025-02-08 12:00] VITALS: BP 116/49; TEMP 97.5; O2SAT 94
[2025-02-08] MEDS: metOLazone 2.5 MG TAB PO ONE (12:33)
[2025-02-08 20:00] VITALS: BP 156/67; TEMP 97.5; O2SAT 99
[2025-02-08] MEDS: DOCUSATE SODIUM 100MG CAPSULE PO SCH (20:33)
[2025-02-09] MEDS: ACETAMINOPHEN 325 MG TAB PO PRN (01:28)
[2025-02-09 04:30] VITALS: BP 127/51; TEMP 97.7; O2SAT 96
[2025-02-09 05:50] LABS: HEMATOCRIT 29.9 % (42.0-52.0); HEMOGLOBIN 8.8 g/dl (13.5-17.5); MEAN CORPUSCULAR HEMOGLOBIN 29.6 pg (27.0-33.0); MEAN CORPUSCULAR HGB CONC 29.4 g/dl (32.0-36.5); MEAN CORPUSCULAR VOLUME 100.7 fl (80.0-96.0); PLATELET COUNT, AUTOMATED 321 10^3/uL (150-450); RED BLOOD COUNT 2.97 10^6/uL (4.30-6.10); WHITE BLOOD COUNT 5.6 10^3/uL (4.0-10.0)
[2025-02-09 06:25] LABS: IRON (FE) 36 UG/DL (65-175); PERCENT SATURATION 20.7 % (19.7-50.0); TOTAL IRON BINDING CAPACITY 174 UG/DL (250-425)
[2025-02-09 06:31] LABS: ALBUMIN 2.2 G/DL (3.2-5.2); ALKALINE PHOSPHATASE 91 U/L (40-129); ALT/SGPT 11 U/L (7.0-40); AST/SGOT 13 U/L (<34); BILIRUBIN,TOTAL 0.2 MG/DL (0.3-1.2); BLOOD UREA NITROGEN 29 MG/DL (9-23); CARBON DIOXIDE LEVEL > 40.0 MMOL/L (20-31); CHLORIDE LEVEL 91 MMOL/L (98-107); CREATININE FOR GFR 1.41 MG/DL (0.70-1.30); FERRITIN 307.1 NG/ML (10.5-307.3); FOLATE 11.4 NG/ML (>5.4); GLOMERULAR FILTRATION RATE 49.5 (>35); GLUCOSE, FASTING 143 MG/DL (74-106); POTASSIUM SERUM 5.4 MMOL/L (3.5-5.1); SODIUM LEVEL 134 MMOL/L (136-145); TOTAL PROTEIN 5.6 G/DL (5.7-8.2); VITAMIN B12 LEVEL 518 PG/ML (211-911)
[2025-02-09] MEDS: LACTULOSE 20GM/30ML SYRUP UDC PO ONE (12:29)
[2025-02-09] MEDS: SENOKOT S TAB PO PRN (12:30)
[2025-02-09 12:35] VITALS: BP 139/55; TEMP 97.5; O2SAT 99
[2025-02-09] MEDS: FERRIC CARBOXYMALTOSE INJ 750 MG, VIAL MATE ADAPTER 1 EACH in NS 100 ML IV ONE (14:58)
[2025-02-09 22:00] VITALS: BP 189/66; TEMP 97.7; O2SAT 96
[2025-02-10 02:45] LABS: HEMATOCRIT 33.7 % (42.0-52.0); HEMOGLOBIN 10.2 g/dl (13.5-17.5); MEAN CORPUSCULAR HEMOGLOBIN 30.4 pg (27.0-33.0); MEAN CORPUSCULAR HGB CONC 30.3 g/dl (32.0-36.5); MEAN CORPUSCULAR VOLUME 100.6 fl (80.0-96.0); PLATELET COUNT, AUTOMATED 370 10^3/uL (150-450); RED BLOOD COUNT 3.35 10^6/uL (4.30-6.10); WHITE BLOOD COUNT 6.1 10^3/uL (4.0-10.0)
[2025-02-10 03:24] LABS: ALBUMIN 2.5 G/DL (3.2-5.2); BILIRUBIN,TOTAL 0.2 MG/DL (0.3-1.2); CALCIUM LEVEL 8.5 MG/DL (8.3-10.6); CREATININE FOR GFR 1.34 MG/DL (0.70-1.30); GLOMERULAR FILTRATION RATE 52.6 (>35); MAGNESIUM LEVEL 3.1 MG/DL (1.8-2.4); POTASSIUM SERUM 4.4 MMOL/L (3.5-5.1); TOTAL PROTEIN 6.3 G/DL (5.7-8.2)
[2025-02-10 04:00] VITALS: BP 180/68; TEMP 97.4; O2SAT 97
[2025-02-10 04:34] LABS: VENOUS BASE EXCESS 10.9 (-2.0-2.0); VENOUS HCO3 38.1 MMOL/L (23.0-27.0); VENOUS O2 SATURATION 99.1 % (60.0-80.0); VENOUS PARTIAL PRESSURE O2 177.5 mmHg (30.0-50.0); VENOUS PH 7.379 UNITS (7.330-7.430); VENOUS STANDARD HCO3 34.7 MMOL/L; VENOUS TOTAL CO2 40.1 MMOL/L (24.0-28.0)
[2025-02-10] MEDS: MIRALAX *UNIT DOSE* 17GM PACKET PO SCH (09:54)
[2025-02-10 10:00] VITALS: BP 167/62; O2SAT 96
[2025-02-10 11:22] LABS: C REACTIVE PROTEIN QUANTITATIV 3.06 MG/DL (<1.0)
[2025-02-10 11:29] LABS: PROCALCITONIN 0.13 ng/ml
[2025-02-10 12:00] VITALS: BP 150/54; TEMP 97.3; O2SAT 99
[2025-02-10 15:18] LABS: KETONE, URINE AUTO RFX NEGATIVE (NEGATIVE); NITRITE, URINE AUTO RFX NEGATIVE (NEGATIVE); RBC, URINE AUTO RFX 0 /HPF (0-3); SQUAM EPITHELIAL CELL UR AURFX 0 /HPF (0-6)
[2025-02-10 15:20] LABS: LEUKOCYTE ESTERASE UR AUTO RFX 3+ (NEGATIVE); WBC, URINE AUTO RFX 54 /HPF (0-3)
[2025-02-10] MEDS: cefTRIAXone SOD 1 GM in DEXTROSE 5% (D5W) ADV/MINI-BAG 50 ML IV SCH (17:17)
[2025-02-10 20:29] VITALS: BP 157/62; TEMP 97.3; O2SAT 96
[2025-02-10] MEDS: MORPHINE SULFATE TAB IMM. REL. 15 MG PO SCH (21:05)
[2025-02-11 05:58] LABS: VENOUS BASE EXCESS 6.4 (-2.0-2.0); VENOUS HCO3 32.6 MMOL/L (23.0-27.0); VENOUS O2 SATURATION 99.5 % (60.0-80.0); VENOUS PARTIAL PRESSURE CO2 55.2 mmHg (38.0-50.0); VENOUS PARTIAL PRESSURE O2 181.3 mmHg (30.0-50.0); VENOUS PH 7.389 UNITS (7.330-7.430); VENOUS STANDARD HCO3 30.3 MMOL/L; VENOUS TOTAL CO2 34.3 MMOL/L (24.0-28.0)
[2025-02-11 06:13] VITALS: BP 153/64; TEMP 97.3
[2025-02-11 06:15] LABS: BASO # 0.1 10^3/uL (0.0-0.2); BASO % 1.6 % (0.0-1.0); EOS % 16.6 % (0.0-3.0); HEMATOCRIT 30.5 % (42.0-52.0); HEMOGLOBIN 9.3 g/dl (13.5-17.5); LYMPH # 1.3 10^3/uL (1.5-5.0); LYMPH % 22.3 % (24.0-44.0); MEAN CORPUSCULAR HEMOGLOBIN 30.1 pg (27.0-33.0); MEAN CORPUSCULAR HGB CONC 30.5 g/dl (32.0-36.5); MEAN CORPUSCULAR VOLUME 98.7 fl (80.0-96.0); MONO # 0.7 10^3/uL (0.0-0.8); MONO % 12.7 % (2.0-8.0); NEUTROPHILS # 2.7 10^3/uL (1.5-8.5); NEUTROPHILS % 46.3 % (36.0-66.0); PLATELET COUNT, AUTOMATED 346 10^3/uL (150-450); RED BLOOD COUNT 3.09 10^6/uL (4.30-6.10); WHITE BLOOD COUNT 5.7 10^3/uL (4.0-10.0)
[2025-02-11 06:34] LABS: BLOOD UREA NITROGEN 26 MG/DL (9-23); CALCIUM LEVEL 8.5 MG/DL (8.3-10.6); CARBON DIOXIDE LEVEL 37 MMOL/L (20-31); CHLORIDE LEVEL 92 MMOL/L (98-107); CREATININE FOR GFR 1.33 MG/DL (0.70-1.30); GLUCOSE, FASTING 207 MG/DL (74-106); MAGNESIUM LEVEL 2.8 MG/DL (1.8-2.4); POTASSIUM SERUM 4.9 MMOL/L (3.5-5.1); SODIUM LEVEL 133 MMOL/L (136-145)
[2025-02-11 11:01] LABS: LIPASE 12 U/L (12-53)
[2025-02-11 11:05] LABS: ALBUMIN 2.3 G/DL (3.2-5.2); ALKALINE PHOSPHATASE 99 U/L (40-129); ALT/SGPT < 9 U/L (7.0-40); AST/SGOT 9 U/L (<34); BILIRUBIN,DIRECT 0.1 MG/DL (<0.4); BILIRUBIN,TOTAL 0.2 MG/DL (0.3-1.2); TOTAL PROTEIN 5.9 G/DL (5.7-8.2)
[2025-02-11 11:42] VITALS: BP 116/55; TEMP 97.5; O2SAT 99
[2025-02-11] MEDS: MORPHINE SULFATE TAB IMM. REL. 15 MG PO PRN (14:22)
[2025-02-11 15:27] VITALS: BP 149/66; TEMP 97.5; O2SAT 100
[2025-02-11] MEDS: MAALOX 30 ML SUSP *UDC PO PRN (15:51)
[2025-02-11] MEDS: HYOSCYAMINE SULFATE 0.125 MG SUBL TABLET PO ONE (16:54)
[2025-02-11] MEDS: LIDOCAINE VISCOUS 2% SOLN 15ML UDC PO ONE (16:54)
[2025-02-11] MEDS: FUROSEMIDE 40MG/4ML VIAL IV SCH (16:54)
[2025-02-11 16:57] LABS: CK-MB VALUE MASS 1.7 NG/ML (<3.6)
[2025-02-11 18:00] LABS: CK-MB VALUE MASS 1.4 NG/ML (<3.6); MB/CK RELATIVE INDEX 4.11 (< OR =4)
[2025-02-11 19:58] VITALS: BP 138/55; TEMP 97.9; O2SAT 90
[2025-02-11] MEDS: GABAPENTIN 300 MG CAP PO SCH (21:37)
[2025-02-11] MEDS ORDERED: MORPHINE 2 MG/ML 1ML VIAL IV PRN (21:55)
[2025-02-11] MEDS ORDERED: MORPHINE 4 MG/ML 1ML VIAL IV PRN (21:55)
[2025-02-11] MEDS ORDERED: NALOXONE INJ 0.4MG/1ML VIAL IV PRN (21:55)
[2025-02-11] MEDS: MORPHINE 2 MG/ML 1ML VIAL IV PRN (22:18)
[2025-02-12] MEDS: DICYCLOMINE 10 MG CAP PO PRN (05:52)
[2025-02-12 05:54] VITALS: BP 140/54; TEMP 97.7; O2SAT 92
[2025-02-12 06:10] LABS: BASO # 0.1 10^3/uL (0.0-0.2); BASO % 1.6 % (0.0-1.0); EOS # 0.7 10^3/uL (0.0-0.5); EOS % 11.9 % (0.0-3.0); HEMATOCRIT 33.1 % (42.0-52.0); HEMOGLOBIN 10.2 g/dl (13.5-17.5); LYMPH # 1.1 10^3/uL (1.5-5.0); LYMPH % 17.6 % (24.0-44.0); MEAN CORPUSCULAR HEMOGLOBIN 29.8 pg (27.0-33.0); MEAN CORPUSCULAR HGB CONC 30.8 g/dl (32.0-36.5); MEAN CORPUSCULAR VOLUME 96.8 fl (80.0-96.0); MONO # 0.9 10^3/uL (0.0-0.8); MONO % 14.4 % (2.0-8.0); NEUTROPHILS # 3.4 10^3/uL (1.5-8.5); PLATELET COUNT, AUTOMATED 379 10^3/uL (150-450); RED BLOOD COUNT 3.42 10^6/uL (4.30-6.10); WHITE BLOOD COUNT 6.2 10^3/uL (4.0-10.0)
[2025-02-12 06:41] LABS: C REACTIVE PROTEIN QUANTITATIV 2.14 MG/DL (<1.0); CALCIUM LEVEL 8.9 MG/DL (8.3-10.6); CREATININE FOR GFR 1.24 MG/DL (0.70-1.30); GLOMERULAR FILTRATION RATE 57.7 (>35); MAGNESIUM LEVEL 2.8 MG/DL (1.8-2.4); POTASSIUM SERUM 4.5 MMOL/L (3.5-5.1)
[2025-02-12 12:05] VITALS: BP 150/60; TEMP 97.3; O2SAT 98
[2025-02-12] MEDS: SENOKOT S TAB PO SCH (14:18)
[2025-02-12] MEDS ORDERED: FLEET ENEMA PR ONE (15:15)
[2025-02-12] MEDS: BISACODYL 10MG SUPP PR ONE (15:48)
[2025-02-12] MEDS: FLEET ENEMA PR ONE (18:00)
[2025-02-12] MEDS: GABAPENTIN 300 MG CAP PO SCH (20:51)
[2025-02-12 22:00] VITALS: BP 172/72; TEMP 96.9; O2SAT 94
[2025-02-12] MEDS: SIMETHICONE 80MG CHEW TAB PO PRN (23:04)
[2025-02-13] MEDS: RAMELTEON 8 MG TAB (ROZEREM) PO PRN (02:02)
[2025-02-13 05:20] VITALS: BP 158/71; TEMP 97.3; O2SAT 99
[2025-02-13] MEDS: FLEET ENEMA PR SCH (05:31)
[2025-02-13 06:05] LABS: BASO # 0.1 10^3/uL (0.0-0.2); EOS # 0.6 10^3/uL (0.0-0.5); EOS % 8.6 % (0.0-3.0); HEMATOCRIT 31.8 % (42.0-52.0); HEMOGLOBIN 9.9 g/dl (13.5-17.5); LYMPH # 1.3 10^3/uL (1.5-5.0); LYMPH % 19.5 % (24.0-44.0); MEAN CORPUSCULAR HEMOGLOBIN 30.5 pg (27.0-33.0); MEAN CORPUSCULAR HGB CONC 31.1 g/dl (32.0-36.5); MEAN CORPUSCULAR VOLUME 97.8 fl (80.0-96.0); MONO # 0.9 10^3/uL (0.0-0.8); MONO % 13.8 % (2.0-8.0); NEUTROPHILS # 3.6 10^3/uL (1.5-8.5); NEUTROPHILS % 55.6 % (36.0-66.0); PLATELET COUNT, AUTOMATED 369 10^3/uL (150-450); RED BLOOD COUNT 3.25 10^6/uL (4.30-6.10); WHITE BLOOD COUNT 6.4 10^3/uL (4.0-10.0)
[2025-02-13 06:24] LABS: C REACTIVE PROTEIN QUANTITATIV 1.86 MG/DL (<1.0)
[2025-02-13 06:25] LABS: CALCIUM LEVEL 8.3 MG/DL (8.3-10.6); CREATININE FOR GFR 1.26 MG/DL (0.70-1.30); GLOMERULAR FILTRATION RATE 56.6 (>35); MAGNESIUM LEVEL 2.7 MG/DL (1.8-2.4); POTASSIUM SERUM 4.5 MMOL/L (3.5-5.1)
[2025-02-13] MEDS ORDERED: BISACODYL 10MG SUPP PR PRN (07:20)
[2025-02-13] MEDS ORDERED: FLEET ENEMA PR PRN (07:20)
[2025-02-13] MEDS: LACTULOSE 20GM/30ML SYRUP UDC PO SCH (09:00)
[2025-02-13] MEDS ORDERED: BISACODYL 10MG SUPP PR SCH (09:00)
[2025-02-13 09:03] VITALS: BP 127/55
[2025-02-13 12:00] VITALS: BP 135/58; TEMP 97.7; O2SAT 100
[2025-02-13] MEDS: GLUCOSE 4 GM CHEW PO PRN (15:36)
[2025-02-13 15:50] VITALS: BP 122/76; TEMP 96.6; O2SAT 100
[2025-02-13] MEDS: DEXTROSE 50% 50ML SYRINGE IV PRN (16:04)
[2025-02-13 20:00] VITALS: BP 133/72; TEMP 97.3; O2SAT 96
[2025-02-14] MEDS: MORPHINE SULFATE TAB IMM. REL. 15 MG PO PRN (02:08)
[2025-02-14 02:19] LABS: BASO # 0.1 10^3/uL (0.0-0.2); BASO % 1.1 % (0.0-1.0); EOS # 0.5 10^3/uL (0.0-0.5); EOS % 5.7 % (0.0-3.0); HEMATOCRIT 31.3 % (42.0-52.0); HEMOGLOBIN 9.8 g/dl (13.5-17.5); LYMPH # 0.8 10^3/uL (1.5-5.0); MEAN CORPUSCULAR HEMOGLOBIN 30.3 pg (27.0-33.0); MEAN CORPUSCULAR HGB CONC 31.3 g/dl (32.0-36.5); MEAN CORPUSCULAR VOLUME 96.9 fl (80.0-96.0); MONO # 1.1 10^3/uL (0.0-0.8); MONO % 11.9 % (2.0-8.0); NEUTROPHILS # 6.5 10^3/uL (1.5-8.5); NEUTROPHILS % 71.9 % (36.0-66.0); PLATELET COUNT, AUTOMATED 365 10^3/uL (150-450); RED BLOOD COUNT 3.23 10^6/uL (4.30-6.10); WHITE BLOOD COUNT 9.1 10^3/uL (4.0-10.0)
[2025-02-14 02:41] LABS: CK-MB VALUE MASS < 1.0 NG/ML (<3.6)
[2025-02-14 02:43] LABS: ALBUMIN 2.4 G/DL (3.2-5.2); BILIRUBIN,TOTAL 0.2 MG/DL (0.3-1.2); CALCIUM LEVEL 7.9 MG/DL (8.3-10.6); CPK CREATINE PHOSPHOKINASE 24 U/L (46-171); CREATININE FOR GFR 1.25 MG/DL (0.70-1.30); GLOMERULAR FILTRATION RATE 57.1 (>35); MAGNESIUM LEVEL 2.3 MG/DL (1.8-2.4); MB/CK RELATIVE INDEX 4.16 (< OR =4); POTASSIUM SERUM 4.1 MMOL/L (3.5-5.1); TOTAL PROTEIN 5.7 G/DL (5.7-8.2)
[2025-02-14 04:39] LABS: CK-MB VALUE MASS < 1.0 NG/ML (<3.6)
[2025-02-14 04:40] LABS: CPK CREATINE PHOSPHOKINASE 21 U/L (46-171); MB/CK RELATIVE INDEX 4.76 (< OR =4)
[2025-02-14 04:46] VITALS: BP 126/50; TEMP 97.9; O2SAT 98
[2025-02-14] MEDS: MORPHINE 2 MG/ML 1ML VIAL IV ONE (05:20)
[2025-02-14 06:20] LABS: BASO # 0.1 10^3/uL (0.0-0.2); BASO % 0.9 % (0.0-1.0); EOS # 0.6 10^3/uL (0.0-0.5); EOS % 5.5 % (0.0-3.0); HEMATOCRIT 31.1 % (42.0-52.0); HEMOGLOBIN 9.8 g/dl (13.5-17.5); LYMPH # 1.1 10^3/uL (1.5-5.0); LYMPH % 10.7 % (24.0-44.0); MEAN CORPUSCULAR HEMOGLOBIN 30.3 pg (27.0-33.0); MEAN CORPUSCULAR HGB CONC 31.5 g/dl (32.0-36.5); MEAN CORPUSCULAR VOLUME 96.3 fl (80.0-96.0); MONO # 1.1 10^3/uL (0.0-0.8); MONO % 10.8 % (2.0-8.0); NEUTROPHILS # 7.6 10^3/uL (1.5-8.5); NEUTROPHILS % 71.8 % (36.0-66.0); PLATELET COUNT, AUTOMATED 370 10^3/uL (150-450); RED BLOOD COUNT 3.23 10^6/uL (4.30-6.10); WHITE BLOOD COUNT 10.6 10^3/uL (4.0-10.0)
[2025-02-14 06:45] LABS: C REACTIVE PROTEIN QUANTITATIV 1.51 MG/DL (<1.0); CALCIUM LEVEL 7.9 MG/DL (8.3-10.6); CK-MB VALUE MASS < 1.0 NG/ML (<3.6); CREATININE FOR GFR 1.25 MG/DL (0.70-1.30); GLOMERULAR FILTRATION RATE 57.1 (>35); MAGNESIUM LEVEL 2.4 MG/DL (1.8-2.4); POTASSIUM SERUM 4.1 MMOL/L (3.5-5.1)
[2025-02-14 06:46] LABS: CPK CREATINE PHOSPHOKINASE 18 U/L (46-171); MB/CK RELATIVE INDEX 5.55 (< OR =4)
[2025-02-14] MEDS ORDERED: E-Z-PAQUE 96% w/w SUSP 176GM BTL As Ordered ONE (07:49)
[2025-02-14] MEDS ORDERED: E-Z-GAS II EFFERVESCENT PACKET (SODIUM BICARB./CITRIC ACID/SIMETHICONE) As Ordered ONE (07:49)
[2025-02-14] MEDS ORDERED: E-Z-HD 98% w/w 340GM SUSP BTL As Ordered ONE (07:49)
[2025-02-14 07:50] VITALS: BP 128/51; TEMP 97.5; O2SAT 98
[2025-02-14] MEDS: FUROSEMIDE 80 MG TAB PO SCH (11:20)
[2025-02-14 12:00] VITALS: BP 144/57; TEMP 97.9; O2SAT 97
[2025-02-14] MEDS ORDERED: LACT20EL PO (14:41)
[2025-02-14] MEDS ORDERED: SUCR1ORA20 PO (14:41)
[2025-02-14] MEDS ORDERED: FURO80TA2 PO (14:41)
[2025-02-14 16:00] VITALS: BP 112/68
== END 2025-02-14 19:11 | disposition home or self-care (01) | DRG 291 ==
LOC: M ED 10:14 → EDBD 10:14 → M ED INP 14:05 → M MSPAV 15:01
PROVIDERS: ADMIT Internal Medicine; ATTEND Internal Medicine
DX: I13.0 Hypertensive heart and chronic kidney disease with heart failure and stage 1 through stage 4 chronic kidney disease, or unspecified chronic kidney disease (principal); I50.23 Acute on chronic systolic (congestive) heart failure; J96.21 Acute and chronic respiratory failure with hypoxia; J69.0 Pneumonitis due to inhalation of food and vomit; J18.9 Pneumonia, unspecified organism; G93.41 Metabolic encephalopathy; J84.116 Cryptogenic organizing pneumonia; I24.89 Other forms of acute ischemic heart disease; A31.0 Pulmonary mycobacterial infection; J44.0 Chronic obstructive pulmonary disease with (acute) lower respiratory infection; E87.3 Alkalosis; N18.30 Chronic kidney disease, stage 3 unspecified; R13.13 Dysphagia, pharyngeal phase; E83.42 Hypomagnesemia; N40.1 Benign prostatic hyperplasia with lower urinary tract symptoms; D50.9 Iron deficiency anemia, unspecified; G89.29 Other chronic pain; K59.00 Constipation, unspecified; K21.9 Gastro-esophageal reflux disease without esophagitis; E87.5 Hyperkalemia; E11.22 Type 2 diabetes mellitus with diabetic chronic kidney disease; G31.84 Mild cognitive impairment of uncertain or unknown etiology; E11.40 Type 2 diabetes mellitus with diabetic neuropathy, unspecified; E11.51 Type 2 diabetes mellitus with diabetic peripheral angiopathy without gangrene; E78.5 Hyperlipidemia, unspecified; R25.1 Tremor, unspecified; H40.9 Unspecified glaucoma; R33.9 Retention of urine, unspecified; R00.1 Bradycardia, unspecified; K57.90 Diverticulosis of intestine, part unspecified, without perforation or abscess without bleeding; R54 Age-related physical debility; I25.2 Old myocardial infarction; I25.10 Atherosclerotic heart disease of native coronary artery without angina pectoris; I44.7 Left bundle-branch block, unspecified; R10.30 Lower abdominal pain, unspecified; Z99.81 Dependence on supplemental oxygen; Z79.82 Long term (current) use of aspirin; Z79.4 Long term (current) use of insulin; Z89.422 Acquired absence of other left toe(s); Z79.899 Other long term (current) drug therapy; Z96.651 Presence of right artificial knee joint; Z95.5 Presence of coronary angioplasty implant and graft; Z98.41 Cataract extraction status, right eye; Z98.42 Cataract extraction status, left eye

== ENCOUNTER → 2025-02-28 | Outpatient (REF) | payer MEDICARE ==
[~2025-02-28] MED LIST changes: +FURO80TA2 PO; +METO25TA4 PO; +SUCR1ORA20 PO
== END ==
LOC: M LAB REF 17:01
PROVIDERS: ATTEND Physician Assistant
DX: N18.9 Chronic kidney disease, unspecified (principal)

== ENCOUNTER → 2025-04-26 | Outpatient (REF) | payer MEDICARE ==
[~2025-04-26] MED LIST changes: +D3 H10002 PO; +GABA-1172 PO; +LACT10SO94 PO; +PEG31POW PO; +SENN-186 PO; -TIMO0.5S39 OU; +TIMO5DRO9 OU
[2025-04-26 17:21] LABS: CALCIUM LEVEL 8.7 MG/DL (8.3-10.6); CARBON DIOXIDE LEVEL 34.0 MMOL/L (20-31); CHLORIDE LEVEL 96.0 MMOL/L (98-107); CREATININE FOR GFR 1.85 MG/DL (0.70-1.30); GLOMERULAR FILTRATION RATE 35.7 (>35); PHOSPHORUS LEVEL 5.1 MG/DL (2.4-5.1); POTASSIUM SERUM 4.8 MMOL/L (3.5-5.1); SODIUM LEVEL 139.0 MMOL/L (136-145)
== END ==
LOC: M LAB REF 15:26
PROVIDERS: ATTEND Internal Medicine Nephrology
DX: N18.32 Chronic kidney disease, stage 3b (principal)

== ENCOUNTER 2025-05-02 10:21 | Inpatient (IN) | payer MEDICARE ==
[~2025-05-02] VITALS: Ht 175.3 cm; Wt 75.6 kg
[~2025-05-02 10:21] MED LIST changes: -D3 H10002 PO; -GABA-1172 PO
[2025-05-02 11:38] LABS: BASO # 0.1 10^3/uL (0.0-0.2); BASO % 0.5 % (0.0-1.0); EOS # 0.7 10^3/uL (0.0-0.5); EOS % 3.9 % (0.0-3.0); LYMPH # 0.7 10^3/uL (1.5-5.0); LYMPH % 3.7 % (24.0-44.0); MONO # 1.0 10^3/uL (0.0-0.8); MONO % 5.5 % (2.0-8.0); NEUTROPHILS # 15.2 10^3/uL (1.5-8.5); NEUTROPHILS % 85.6 % (36.0-66.0); PLATELET COUNT, AUTOMATED 307 10^3/uL (150-450)
[2025-05-02] MEDS: ACETAMINOPHEN *IV* 1,000 MG in IV 1 EA IV ONE (11:39)
[2025-05-02] MEDS: LIDOCAINE 2% 5 ML JELLY UROJET TOP ONE (11:39)
[2025-05-02 11:40] LABS: C REACTIVE PROTEIN QUANTITATIV 6.80 MG/DL (<1.0)
[2025-05-02 11:46] LABS: INR 1.27
[2025-05-02 11:53] LABS: ALT/SGPT 15 U/L (7.0-40); AST/SGOT 24 U/L (<34); CALCIUM LEVEL 10.2 MG/DL (8.3-10.6); CARBON DIOXIDE LEVEL > 40.0 MMOL/L (20-31); CHLORIDE LEVEL 93 MMOL/L (98-107); CREATININE FOR GFR 1.88 MG/DL (0.70-1.30); GLOMERULAR FILTRATION RATE 35.0 (>35); POTASSIUM SERUM 4.9 MMOL/L (3.5-5.1); SODIUM LEVEL 141 MMOL/L (136-145)
[2025-05-02 11:56] LABS: ABG BASE EXCESS 8.5 (-2.0-2.0); ABG HCO3 34.4 MMOL/L (22.0-26.0); ABG O2 SATURATION 94.8 % (95.0-99.0); ABG PARTIAL PRESSURE CO2 53.2 mmHg (35.0-45.0); ABG PARTIAL PRESSURE O2 74.3 mmHg (75.0-100.0); ABG STANDARD HCO3 32.2 MMOL/L. (22.0-26.0); ABG TOTAL CO2 36.0 MMOL/L (23.0-31.0); ABG pH (ARTERIAL) 7.428 UNITS (7.350-7.450)
[2025-05-02 12:20] LABS: APPEARANCE, URINE HAZY (CLEAR); BACTERIA, URINE AUTO 1+ (NEGATIVE); BILIRUBIN, URINE AUTO NEGATIVE (NEGATIVE); BLOOD, URINE BLOOD NEGATIVE (NEGATIVE); GLUCOSE, URINE (UA) AUTO NEGATIVE (NEGATIVE); KETONE, URINE AUTO NEGATIVE (NEGATIVE); LEUKOCYTE ESTERASE, URINE AUTO 3+ (NEGATIVE); MUCUS, URINE SMALL (NEGATIVE); NITRITE, URINE AUTO NEGATIVE (NEGATIVE); PROTEIN, URINE AUTO 2+ mg/dL (NEGATIVE); RBC, URINE AUTO 8 /HPF (0-3); SPECIFIC GRAVITY URINE AUTO 1.011 (1.002-1.035); SQUAMOUS EPITHELIAL CELL UR AU 0 /HPF (0-6); UROBILINOGEN, URINE AUTO 0.2 mg/dL (0.0-2.0); WBC, URINE AUTO TNTC /HPF (0-3)
[2025-05-02] MEDS: NS 0.9% IV ONE (13:00)
[2025-05-02] MEDS: [UNRECOGNIZED DRUG - OTHER] IV ONE (13:00)
[2025-05-02] MEDS ORDERED: GABA-1172 PO (13:28)
[2025-05-02] MEDS ORDERED: D3 H10002 PO (13:28)
[2025-05-02] MEDS ORDERED: MIRA3350 PO (13:28)
[2025-05-02] MEDS ORDERED: HOME MED LIST COMPLETE! XX SCH (13:30)
[2025-05-02] MEDS: PIPERACILLIN/TAZOBACTAM SOD 4.5 GM in DEXTROSE 5% (D5W) ADV/MINI-BAG 50 ML IV ONE (13:35)
[2025-05-02] MEDS: INSULIN LISPRO (NovoLOG) PER UNIT SC SCH (17:30)
[2025-05-02] MEDS ORDERED: GLUCAGON INJ 1 MG VIAL SC PRN (18:50)
[2025-05-02] MEDS ORDERED: DEXTROSE 50% 50 ML SYRINGE IV PRN (18:50)
[2025-05-02] MEDS ORDERED: GLUCOSE 4 GM CHEW PO PRN (18:50)
[2025-05-02] MEDS: HEPARIN SOD 5000 UNITS/ML 1 ML VIAL/SYRINGE SQ SCH (22:11)
[2025-05-02] MEDS: TAMSULOSIN 0.4 MG CAP PO SCH (22:13)
[2025-05-02] MEDS: PANTOPRAZOLE 40MG TAB PO SCH (22:13)
[2025-05-02] MEDS: DOCUSATE SODIUM 100 MG CAPSULE PO SCH (22:14)
[2025-05-02] MEDS: GABAPENTIN 300 MG CAP PO SCH (22:14)
[2025-05-02] MEDS: SENNA 8.6 MG TAB PO SCH (22:14)
[2025-05-02] MEDS: SIMVASTATIN 10 MG TAB PO SCH (22:15)
[2025-05-02] MEDS: PIPERACILLIN/TAZOBACTAM SOD 3.375 GM in DEXTROSE 5% (D5W) ADV/MINI-BAG 50 ML IV SCH (23:57)
[2025-05-03] MEDS: MORPHINE SULFATE TAB IMM. REL. 30 MG PO SCH (00:01)
[2025-05-03] MEDS: LATANOPROST 0.005% OPHTH SOLN 2.5 ML OU SCH (00:01)
[2025-05-03 05:07] VITALS: BP 111/36; TEMP 97.5; O2SAT 100
[2025-05-03] MEDS: ACETAMINOPHEN 325 MG TAB PO PRN (06:55)
[2025-05-03] MEDS: LanTUS (INSULIN GLARGINE INJ) 1 UNITS/0.01 ML SC SCH (09:00)
[2025-05-03] MEDS: MIRALAX *UNIT DOSE* 17 GM PACKET PO SCH (09:50)
[2025-05-03] MEDS: ASPIRIN 81 MG ENTERIC TABLET PO SCH (09:51)
[2025-05-03] MEDS: ETHAMBUTOL 400 MG TAB PO SCH (09:52)
[2025-05-03] MEDS: AZITHROMYCIN 250 MG TABLET PO SCH (09:53)
[2025-05-03] MEDS: FINASTERIDE 5 MG TAB PO SCH (09:54)
[2025-05-03 10:38] LABS: BASO # 0.1 10^3/uL (0.0-0.2); BASO % 0.6 % (0.0-1.0); EOS # 0.9 10^3/uL (0.0-0.5); EOS % 4.8 % (0.0-3.0); LYMPH # 1.0 10^3/uL (1.5-5.0); LYMPH % 5.5 % (24.0-44.0); MONO # 1.3 10^3/uL (0.0-0.8); MONO % 7.1 % (2.0-8.0); NEUTROPHILS # 15.3 10^3/uL (1.5-8.5); NEUTROPHILS % 81.6 % (36.0-66.0); PLATELET COUNT, AUTOMATED 252 10^3/uL (150-450)
[2025-05-03 11:14] LABS: CALCIUM LEVEL 9.1 MG/DL (8.3-10.6); CARBON DIOXIDE LEVEL 38.0 MMOL/L (20-31); CHLORIDE LEVEL 95.0 MMOL/L (98-107); CREATININE FOR GFR 2.01 MG/DL (0.70-1.30); GLOMERULAR FILTRATION RATE 32.3 (>35); POTASSIUM SERUM 4.9 MMOL/L (3.5-5.1); SODIUM LEVEL 142.0 MMOL/L (136-145)
[2025-05-03 12:00] VITALS: BP 124/45; TEMP 97.3; O2SAT 96
[2025-05-03] MEDS: BISACODYL 10 MG SUPP PR PRN (12:48)
[2025-05-03 22:47] VITALS: BP 132/55; TEMP 97.7; O2SAT 95
[2025-05-04 02:36] LABS: BASO # 0.1 10^3/uL (0.0-0.2); BASO % 0.8 % (0.0-1.0); EOS # 1.1 10^3/uL (0.0-0.5); EOS % 9.5 % (0.0-3.0); LYMPH # 0.7 10^3/uL (1.5-5.0); LYMPH % 5.8 % (24.0-44.0); MONO # 1.2 10^3/uL (0.0-0.8); MONO % 10.1 % (2.0-8.0); NEUTROPHILS # 8.5 10^3/uL (1.5-8.5); NEUTROPHILS % 73.4 % (36.0-66.0); PLATELET COUNT, AUTOMATED 212 10^3/uL (150-450)
[2025-05-04] MEDS: ACETAMINOPHEN *IV* 1,000 MG in IV 1 EA IV ONE (02:36)
[2025-05-04] MEDS ORDERED: SODIUM CHLORIDE 0.9% NASAL GEL 15GM (AYR) PRN (02:45)
[2025-05-04 03:00] LABS: ALT/SGPT 13.0 U/L (7.0-40); AST/SGOT 18.0 U/L (<34); CALCIUM LEVEL 8.7 MG/DL (8.3-10.6); CARBON DIOXIDE LEVEL 36.0 MMOL/L (20-31); CHLORIDE LEVEL 98.0 MMOL/L (98-107); CREATININE FOR GFR 1.85 MG/DL (0.70-1.30); GLOMERULAR FILTRATION RATE 35.7 (>35); MAGNESIUM LEVEL 2.9 MG/DL (1.8-2.4); POTASSIUM SERUM 4.7 MMOL/L (3.5-5.1); SODIUM LEVEL 141.0 MMOL/L (136-145)
[2025-05-04 04:00] VITALS: BP 109/44; TEMP 97.5; O2SAT 95
[2025-05-04 12:00] VITALS: BP 122/45; TEMP 98.1; O2SAT 97
[2025-05-04] MEDS: TORSEMIDE 10 MG TABLET PO SCH (14:16)
[2025-05-04 20:31] VITALS: BP 151/60; TEMP 97.7; O2SAT 100
[2025-05-05 06:06] LABS: BASO # 0.1 10^3/uL (0.0-0.2); BASO % 0.8 % (0.0-1.0); EOS # 1.2 10^3/uL (0.0-0.5); EOS % 15.9 % (0.0-3.0); LYMPH # 1.2 10^3/uL (1.5-5.0); LYMPH % 16.6 % (24.0-44.0); MONO # 1.0 10^3/uL (0.0-0.8); MONO % 13.2 % (2.0-8.0); NEUTROPHILS # 3.9 10^3/uL (1.5-8.5); NEUTROPHILS % 53.2 % (36.0-66.0); PLATELET COUNT, AUTOMATED 222 10^3/uL (150-450)
[2025-05-05 06:11] LABS: CALCIUM LEVEL 8.3 MG/DL (8.3-10.6); CARBON DIOXIDE LEVEL 35.0 MMOL/L (20-31); CHLORIDE LEVEL 98.0 MMOL/L (98-107); CREATININE FOR GFR 1.81 MG/DL (0.70-1.30); GLOMERULAR FILTRATION RATE 36.6 (>35); POTASSIUM SERUM 4.8 MMOL/L (3.5-5.1); SODIUM LEVEL 141.0 MMOL/L (136-145)
[2025-05-05 12:00] VITALS: BP 147/59; TEMP 98.6; O2SAT 100
[2025-05-05] MEDS: SIMETHICONE 80MG CHEW TAB PO SCH (17:25)
[2025-05-05] MEDS: METOCLOPRAMIDE 5 MG TAB PO SCH (17:25)
[2025-05-05 20:00] VITALS: BP 148/58; TEMP 97.7; O2SAT 91
[2025-05-06 04:07] VITALS: BP 145/59; TEMP 97.9; O2SAT 94
[2025-05-06 05:23] LABS: BASO # 0.1 10^3/uL (0.0-0.2); BASO % 1.0 % (0.0-1.0); EOS # 1.1 10^3/uL (0.0-0.5); EOS % 13.8 % (0.0-3.0); LYMPH # 1.3 10^3/uL (1.5-5.0); LYMPH % 17.6 % (24.0-44.0); MONO # 1.1 10^3/uL (0.0-0.8); MONO % 14.0 % (2.0-8.0); NEUTROPHILS # 4.1 10^3/uL (1.5-8.5); NEUTROPHILS % 53.2 % (36.0-66.0); PLATELET COUNT, AUTOMATED 238 10^3/uL (150-450)
[2025-05-06 05:43] LABS: CALCIUM LEVEL 8.1 MG/DL (8.3-10.6); CARBON DIOXIDE LEVEL 35.0 MMOL/L (20-31); CHLORIDE LEVEL 97.0 MMOL/L (98-107); CREATININE FOR GFR 1.75 MG/DL (0.70-1.30); GLOMERULAR FILTRATION RATE 38.2 (>35); POTASSIUM SERUM 4.4 MMOL/L (3.5-5.1); SODIUM LEVEL 140.0 MMOL/L (136-145)
[2025-05-06] MEDS: BRINZOLAMIDE 1% OPHTH SUSP 10 ML OU SCH (09:00)
[2025-05-06] MEDS: BRIMONIDINE 0.15% OPHTH SOLN 5 ML OU SCH (09:00)
[2025-05-06] MEDS: TIMOLOL MALEATE 0.5% OPHTH SOLN 5 ML OU SCH (09:11)
[2025-05-06 12:00] VITALS: BP 149/59; TEMP 97.7; O2SAT 99
[2025-05-06] MEDS: HumuLIN R (REGULAR) INSULIN (NovoLIN R) **100 U/ML** PER UNIT SC SCH (12:26)
[2025-05-06] MEDS: HumuLIN N INSULIN (NovoLIN N) PER UNIT SC SCH (18:20)
[2025-05-06 20:38] VITALS: BP 149/61; TEMP 97.7; O2SAT 99
[2025-05-07 04:02] VITALS: BP 130/54; TEMP 97.8; O2SAT 100
[2025-05-07 05:40] LABS: BASO # 0.1 10^3/uL (0.0-0.2); BASO % 0.9 % (0.0-1.0); EOS # 1.3 10^3/uL (0.0-0.5); EOS % 14.0 % (0.0-3.0); LYMPH # 1.5 10^3/uL (1.5-5.0); LYMPH % 16.9 % (24.0-44.0); MONO # 1.3 10^3/uL (0.0-0.8); MONO % 14.1 % (2.0-8.0); NEUTROPHILS # 4.8 10^3/uL (1.5-8.5); NEUTROPHILS % 53.4 % (36.0-66.0); PLATELET COUNT, AUTOMATED 251 10^3/uL (150-450)
[2025-05-07 06:07] LABS: CALCIUM LEVEL 8.1 MG/DL (8.3-10.6); CARBON DIOXIDE LEVEL 34.0 MMOL/L (20-31); CHLORIDE LEVEL 98.0 MMOL/L (98-107); CREATININE FOR GFR 1.54 MG/DL (0.70-1.30); GLOMERULAR FILTRATION RATE 44.5 (>35); POTASSIUM SERUM 4.4 MMOL/L (3.5-5.1); SODIUM LEVEL 140.0 MMOL/L (136-145)
[2025-05-07 09:45] VITALS: BP 134/58
[2025-05-07] MEDS ORDERED: TORS20TA2 PO (11:14)
[2025-05-07] MEDS ORDERED: TORSEMIDE 20 MG TAB PO SCH (17:00)
== END 2025-05-07 13:06 | disposition home health service (06) | DRG 871 ==
LOC: M ED 10:21 → EDBD 10:21 → M ED INP 14:20 → M MSPAV 05-03 04:43
PROVIDERS: ADMIT Internal Medicine Nephrology; ATTEND Internal Medicine Nephrology
DX: A41.9 Sepsis, unspecified organism (principal); J69.0 Pneumonitis due to inhalation of food and vomit; G93.41 Metabolic encephalopathy; J84.116 Cryptogenic organizing pneumonia; J96.11 Chronic respiratory failure with hypoxia; I50.42 Chronic combined systolic (congestive) and diastolic (congestive) heart failure; N17.9 Acute kidney failure, unspecified; I13.0 Hypertensive heart and chronic kidney disease with heart failure and stage 1 through stage 4 chronic kidney disease, or unspecified chronic kidney disease; N39.0 Urinary tract infection, site not specified; B44.9 Aspergillosis, unspecified; A31.0 Pulmonary mycobacterial infection; N18.30 Chronic kidney disease, stage 3 unspecified; J44.9 Chronic obstructive pulmonary disease, unspecified; E11.22 Type 2 diabetes mellitus with diabetic chronic kidney disease; I25.10 Atherosclerotic heart disease of native coronary artery without angina pectoris; E11.51 Type 2 diabetes mellitus with diabetic peripheral angiopathy without gangrene; Z79.82 Long term (current) use of aspirin; I35.8 Other nonrheumatic aortic valve disorders; R13.10 Dysphagia, unspecified; K21.9 Gastro-esophageal reflux disease without esophagitis; K22.89 Other specified disease of esophagus; N40.0 Benign prostatic hyperplasia without lower urinary tract symptoms; E83.42 Hypomagnesemia; D50.9 Iron deficiency anemia, unspecified; G89.29 Other chronic pain; K59.09 Other constipation; H40.9 Unspecified glaucoma; R04.0 Epistaxis; K57.10 Diverticulosis of small intestine without perforation or abscess without bleeding; R10.9 Unspecified abdominal pain; I70.0 Atherosclerosis of aorta; J84.10 Pulmonary fibrosis, unspecified; Z96.651 Presence of right artificial knee joint; Z99.81 Dependence on supplemental oxygen; Z95.5 Presence of coronary angioplasty implant and graft; Z89.422 Acquired absence of other left toe(s); Z98.41 Cataract extraction status, right eye; Z98.42 Cataract extraction status, left eye; Z79.4 Long term (current) use of insulin; Z79.899 Other long term (current) drug therapy

== ENCOUNTER 2025-05-18 14:42 | Inpatient (IN) | payer MEDICARE ==
[~2025-05-18] VITALS: Ht 175.3 cm; Wt 84.2 kg
[~2025-05-18 14:42] MED LIST changes: +D3 H10002 PO; +GABA-1172 PO; +SENN-225 PO; -SENO8.6T5 PO
[2025-05-18] MEDS: IPRATROPIUM 0.5 MG/ALBUTEROL 2.5 MG INH SOL UD 3 ML NEB PRN (16:05)
[2025-05-18 16:35] LABS: ABG BASE EXCESS 7.8 (-2.0-2.0); ABG HCO3 34.3 MMOL/L (22.0-26.0); ABG O2 SATURATION 96.6 % (95.0-99.0); ABG PARTIAL PRESSURE CO2 57.8 mmHg (35.0-45.0); ABG PARTIAL PRESSURE O2 87.1 mmHg (75.0-100.0); ABG STANDARD HCO3 31.6 MMOL/L. (22.0-26.0); ABG TOTAL CO2 36.1 MMOL/L (23.0-31.0); ABG pH (ARTERIAL) 7.391 UNITS (7.350-7.450)
[2025-05-18 16:59] LABS: BASO # 0.2 10^3/uL (0.0-0.2); BASO % 1.4 % (0.0-1.0); EOS # 0.9 10^3/uL (0.0-0.5); EOS % 7.8 % (0.0-3.0); LYMPH # 0.8 10^3/uL (1.5-5.0); LYMPH % 7.3 % (24.0-44.0); MONO # 1.3 10^3/uL (0.0-0.8); MONO % 11.4 % (2.0-8.0); NEUTROPHILS # 7.8 10^3/uL (1.5-8.5); NEUTROPHILS % 71.1 % (36.0-66.0); PLATELET COUNT, AUTOMATED 456 10^3/uL (150-450)
[2025-05-18 17:23] LABS: INR 1.21
[2025-05-18 18:31] LABS: CK-MB VALUE MASS 2.6 NG/ML (<3.6)
[2025-05-18] MEDS ORDERED: FERR325T3 PO (18:31)
[2025-05-18] MEDS ORDERED: MORP-137 PO (18:31)
[2025-05-18] MEDS ORDERED: TIMO5DRO5 OU (18:32)
[2025-05-18] MEDS ORDERED: HOME MED LIST COMPLETE! XX SCH (18:35)
[2025-05-18] MEDS: PIPERACILLIN/TAZOBACTAM SOD 4.5 GM in DEXTROSE 5% (D5W) ADV/MINI-BAG 50 ML IV ONE (18:39)
[2025-05-18 18:44] LABS: ALT/SGPT 11.0 U/L (7.0-40); AST/SGOT 22.0 U/L (<34); CALCIUM LEVEL 8.2 MG/DL (8.3-10.6); CARBON DIOXIDE LEVEL 35.0 MMOL/L (20-31); CHLORIDE LEVEL 96.0 MMOL/L (98-107); CPK CREATINE PHOSPHOKINASE 47.0 U/L (46-171); CREATININE FOR GFR 1.53 MG/DL (0.70-1.30); GLOMERULAR FILTRATION RATE 44.8 (>35); MB/CK RELATIVE INDEX 5.53 (< OR =4); POTASSIUM SERUM 6.6 MMOL/L (3.5-5.1); SODIUM LEVEL 137.0 MMOL/L (136-145)
[2025-05-18 20:11] LABS: CK-MB VALUE MASS 2.1 NG/ML (<3.6); CPK CREATINE PHOSPHOKINASE 40.0 U/L (46-171); MB/CK RELATIVE INDEX 5.25 (< OR =4); POTASSIUM SERUM 6.3 MMOL/L (3.5-5.1)
[2025-05-18] MEDS ORDERED: GABAPENTIN 300 MG CAP PO PRN (20:40)
[2025-05-18] MEDS ORDERED: GLUCAGON INJ 1 MG VIAL SC PRN (20:40)
[2025-05-18] MEDS ORDERED: GLUCOSE 4 GM CHEW PO PRN (20:40)
[2025-05-18] MEDS: PATIROMER SORBITEX CALCIUM 8.4GM POWDER PACKET PO ONE (20:45)
[2025-05-18] MEDS: CALCIUM GLUCONATE 1,000 MG in DEXTROSE 5% (D5W) MINI-BAG PLU 100 ML IV ONE (20:47)
[2025-05-18] MEDS: DEXTROSE 50% 50 ML SYRINGE IV STA (20:48)
[2025-05-18] MEDS: FUROSEMIDE 100 MG/10 ML VIAL IV ONE (20:53)
[2025-05-18] MEDS: HumuLIN R (REGULAR) INSULIN (NovoLIN R) **100 U/ML** PER UNIT IV ONE (20:55)
[2025-05-18] MEDS: DOCUSATE SODIUM 100 MG CAPSULE PO SCH (21:00)
[2025-05-18] MEDS: SIMVASTATIN 10 MG TAB PO SCH (22:01)
[2025-05-18] MEDS: GABAPENTIN 300 MG CAP PO SCH (22:01)
[2025-05-18] MEDS: SUCRALFATE SUSP 1GM/10ML UD PO SCH (22:01)
[2025-05-18] MEDS: SENNA 8.6 MG TAB PO SCH (22:01)
[2025-05-18] MEDS: PANTOPRAZOLE 40MG TAB PO SCH (22:01)
[2025-05-18] MEDS: TAMSULOSIN 0.4 MG CAP PO SCH (22:02)
[2025-05-18] MEDS: **hydrALAZINE** 10 MG TAB PO SCH (22:02)
[2025-05-18 22:30] LABS: CALCIUM LEVEL 9.1 MG/DL (8.3-10.6); CARBON DIOXIDE LEVEL 32.0 MMOL/L (20-31); CHLORIDE LEVEL 94.0 MMOL/L (98-107); CREATININE FOR GFR 1.55 MG/DL (0.70-1.30); GLOMERULAR FILTRATION RATE 44.1 (>35); POTASSIUM SERUM 5.8 MMOL/L (3.5-5.1); SODIUM LEVEL 136.0 MMOL/L (136-145)
[2025-05-18] MEDS ORDERED: IPRATROPIUM 0.5 MG/ALBUTEROL 2.5 MG INH SOL UD 3 ML NEB PRN (23:20)
[2025-05-18] MEDS: MORPHINE SULFATE TAB IMM. REL. 30 MG PO SCH (23:46)
[2025-05-18] MEDS: HumuLIN N INSULIN (NovoLIN N) PER UNIT SC SCH (23:53)
[2025-05-18] MEDS: INSULIN LISPRO (NovoLOG) PER UNIT SC SCH (23:54)
[2025-05-19] MEDS: PIPERACILLIN/TAZOBACTAM SOD 3.375 GM in DEXTROSE 5% (D5W) ADV/MINI-BAG 50 ML IV SCH
[2025-05-19] MEDS ORDERED: HumuLIN R (REGULAR) INSULIN (NovoLIN R) **100 U/ML** PER UNIT IV STA (06:48)
[2025-05-19] MEDS ORDERED: DEXTROSE 50% 50 ML SYRINGE IV STA (06:48)
[2025-05-19 07:27] LABS: BASO # 0.1 10^3/uL (0.0-0.2); BASO % 1.1 % (0.0-1.0); EOS # 0.3 10^3/uL (0.0-0.5); EOS % 3.3 % (0.0-3.0); LYMPH # 1.3 10^3/uL (1.5-5.0); LYMPH % 15.9 % (24.0-44.0); MONO # 1.0 10^3/uL (0.0-0.8); MONO % 11.9 % (2.0-8.0); NEUTROPHILS # 5.4 10^3/uL (1.5-8.5); NEUTROPHILS % 67.4 % (36.0-66.0); PLATELET COUNT, AUTOMATED 357 10^3/uL (150-450)
[2025-05-19 07:52] LABS: CALCIUM LEVEL 8.3 MG/DL (8.3-10.6); CARBON DIOXIDE LEVEL 37.0 MMOL/L (20-31); CHLORIDE LEVEL 94.0 MMOL/L (98-107); CREATININE FOR GFR 1.7 MG/DL (0.70-1.30); GLOMERULAR FILTRATION RATE 39.5 (>35); POTASSIUM SERUM 5.6 MMOL/L (3.5-5.1); SODIUM LEVEL 137.0 MMOL/L (136-145)
[2025-05-19] MEDS: ALBUTEROL SULFATE 2.5 MG/0.5 ML INH CONCENTRATE NEB SOLN NEB SCH ×2 (08:09→11:35)
[2025-05-19] MEDS: ETHAMBUTOL 400 MG TAB PO SCH (09:00)
[2025-05-19] MEDS: TIMOLOL MALEATE 0.25% OPHTH SOLN 5 ML OU SCH (09:00)
[2025-05-19] MEDS: MIRALAX *UNIT DOSE* 17 GM PACKET PO SCH (09:06)
[2025-05-19] MEDS: MAGNESIUM OXIDE 400 MG TAB PO SCH (09:07)
[2025-05-19] MEDS: ASPIRIN 81 MG ENTERIC TABLET PO SCH (09:07)
[2025-05-19] MEDS: AZITHROMYCIN 250 MG TABLET PO SCH (09:07)
[2025-05-19] MEDS: FINASTERIDE 5 MG TAB PO SCH (09:07)
[2025-05-19] MEDS: FERROUS SULFATE 325 MG TAB PO SCH (09:07)
[2025-05-19] MEDS: INSULIN LISPRO (NovoLOG) PER UNIT SC SCH (09:10)
[2025-05-19] MEDS: TORSEMIDE 20 MG TAB PO SCH (09:10)
[2025-05-19] MEDS: ENOXAPARIN 40 MG/0.4 ML SYRINGE (J1650 PER 10MG) SC SCH (09:23)
[2025-05-19] MEDS ORDERED: BISACODYL 10 MG SUPP PR PRN (11:35)
[2025-05-19] MEDS: BISACODYL 10 MG SUPP PR ONE (11:35)
[2025-05-19] MEDS: PATIROMER SORBITEX CALCIUM 8.4GM POWDER PACKET PO SCH (12:35)
[2025-05-19] MEDS: DEXTROSE 50% 50 ML SYRINGE IV STA (12:36)
[2025-05-19] MEDS: HumuLIN R (REGULAR) INSULIN (NovoLIN R) **100 U/ML** PER UNIT IV STA (12:37)
[2025-05-19 14:56] LABS: CALCIUM LEVEL 8.7 MG/DL (8.3-10.6); CARBON DIOXIDE LEVEL 36.0 MMOL/L (20-31); CHLORIDE LEVEL 93.0 MMOL/L (98-107); CREATININE FOR GFR 1.74 MG/DL (0.70-1.30); GLOMERULAR FILTRATION RATE 38.4 (>35); POTASSIUM SERUM 5.3 MMOL/L (3.5-5.1); SODIUM LEVEL 137.0 MMOL/L (136-145)
[2025-05-19 15:21] VITALS: BP 139/73; TEMP 97.3; O2SAT 92
[2025-05-19 19:28] LABS: CALCIUM LEVEL 8.9 MG/DL (8.3-10.6); CARBON DIOXIDE LEVEL 37.0 MMOL/L (20-31); CHLORIDE LEVEL 93.0 MMOL/L (98-107); CREATININE FOR GFR 1.7 MG/DL (0.70-1.30); GLOMERULAR FILTRATION RATE 39.5 (>35); POTASSIUM SERUM 5.3 MMOL/L (3.5-5.1); SODIUM LEVEL 137.0 MMOL/L (136-145)
[2025-05-19 20:06] VITALS: BP 142/72; TEMP 97.5; O2SAT 97
[2025-05-19] MEDS: SENNOSIDES/DOCUSATE SODIUM 8.6 MG/50MG TAB PO SCH (21:49)
[2025-05-19 22:00] VITALS: BP 142/72; TEMP 97.5; O2SAT 97
[2025-05-19] MEDS: LATANOPROST 0.005% OPHTH SOLN 2.5 ML OU SCH (22:17)
[2025-05-19 23:09] LABS: CALCIUM LEVEL 8.9 MG/DL (8.3-10.6); CARBON DIOXIDE LEVEL 35.0 MMOL/L (20-31); CHLORIDE LEVEL 91.0 MMOL/L (98-107); CREATININE FOR GFR 1.64 MG/DL (0.70-1.30); GLOMERULAR FILTRATION RATE 41.3 (>35); POTASSIUM SERUM 6.0 MMOL/L (3.5-5.1); SODIUM LEVEL 133.0 MMOL/L (136-145)
[2025-05-20] MEDS: DEXTROSE 50% 50 ML SYRINGE IV ONE (00:17)
[2025-05-20] MEDS: HumuLIN R (REGULAR) INSULIN (NovoLIN R) **100 U/ML** PER UNIT IV ONE (00:18)
[2025-05-20] MEDS: DEXTROSE 50% 50 ML SYRINGE IV PRN (01:48)
[2025-05-20 04:00] VITALS: BP 143/66; TEMP 97.5; O2SAT 95
[2025-05-20 04:29] VITALS: BP 143/66; TEMP 97.5; O2SAT 95
[2025-05-20 06:14] LABS: CALCIUM LEVEL 8.4 MG/DL (8.3-10.6); CARBON DIOXIDE LEVEL 37.0 MMOL/L (20-31); CHLORIDE LEVEL 92.0 MMOL/L (98-107); CREATININE FOR GFR 1.66 MG/DL (0.70-1.30); GLOMERULAR FILTRATION RATE 40.7 (>35); MAGNESIUM LEVEL 2.6 MG/DL (1.8-2.4); POTASSIUM SERUM 5.6 MMOL/L (3.5-5.1); SODIUM LEVEL 135.0 MMOL/L (136-145)
[2025-05-20] MEDS: ALBUTEROL SULFATE 2.5 MG/0.5 ML INH CONCENTRATE NEB SOLN NEB SCH (08:08)
[2025-05-20] MEDS: DEXTROSE 50% 50 ML SYRINGE IV STA (08:15)
[2025-05-20] MEDS: predniSONE 20 MG TAB PO SCH (08:17)
[2025-05-20] MEDS: BISACODYL 10 MG SUPP PR SCH (08:23)
[2025-05-20] MEDS: HumuLIN R (REGULAR) INSULIN (NovoLIN R) **100 U/ML** PER UNIT IV STA (08:30)
[2025-05-20 12:00] VITALS: BP 134/59; TEMP 97.7; O2SAT 91
[2025-05-20 12:46] LABS: CALCIUM LEVEL 8.6 MG/DL (8.3-10.6); CARBON DIOXIDE LEVEL 34.0 MMOL/L (20-31); CHLORIDE LEVEL 91.0 MMOL/L (98-107); CREATININE FOR GFR 1.63 MG/DL (0.70-1.30); GLOMERULAR FILTRATION RATE 41.6 (>35); POTASSIUM SERUM 5.4 MMOL/L (3.5-5.1); SODIUM LEVEL 135.0 MMOL/L (136-145)
[2025-05-20] MEDS ORDERED: PERCOCET 5MG/325MG TAB PO PRN (14:30)
[2025-05-20 20:03] VITALS: BP 163/72; TEMP 97.3; O2SAT 99
[2025-05-20] MEDS: PERCOCET 5MG/325MG TAB PO PRN (22:17)
[2025-05-21] MEDS: CALCIUM CARBONATE 500 MG CHEW U/D PO PRN (04:01)
[2025-05-21 04:07] VITALS: BP_SYST 149; BP_DIAS 60; BP_DIAS 69; TEMP 97.5; O2SAT 97
[2025-05-21 10:31] LABS: CALCIUM LEVEL 9.6 MG/DL (8.3-10.6); CARBON DIOXIDE LEVEL 35.0 MMOL/L (20-31); CHLORIDE LEVEL 92.0 MMOL/L (98-107); CREATININE FOR GFR 1.6 MG/DL (0.70-1.30); GLOMERULAR FILTRATION RATE 42.5 (>35); MAGNESIUM LEVEL 2.7 MG/DL (1.8-2.4); POTASSIUM SERUM 5.3 MMOL/L (3.5-5.1); SODIUM LEVEL 134.0 MMOL/L (136-145)
[2025-05-21 12:00] VITALS: BP 154/67; TEMP 97.9; O2SAT 98
[2025-05-21 19:25] VITALS: BP 151/90; TEMP 98.1; O2SAT 94
[2025-05-22 04:00] VITALS: BP 155/66; TEMP 97.7; O2SAT 98
[2025-05-22 06:48] LABS: CALCIUM LEVEL 9.9 MG/DL (8.3-10.6); CARBON DIOXIDE LEVEL 37.0 MMOL/L (20-31); CHLORIDE LEVEL 91.0 MMOL/L (98-107); CREATININE FOR GFR 1.53 MG/DL (0.70-1.30); GLOMERULAR FILTRATION RATE 44.8 (>35); MAGNESIUM LEVEL 2.4 MG/DL (1.8-2.4); POTASSIUM SERUM 5.3 MMOL/L (3.5-5.1); SODIUM LEVEL 134.0 MMOL/L (136-145)
[2025-05-22 12:00] VITALS: BP 154/64; TEMP 97.5; O2SAT 99
[2025-05-22 20:40] VITALS: BP 183/70; TEMP 97.5; O2SAT 97
[2025-05-23 02:58] LABS: BASO # 0.1 10^3/uL (0.0-0.2); BASO % 1.6 % (0.0-1.0); EOS # 1.3 10^3/uL (0.0-0.5); EOS % 15.4 % (0.0-3.0); LYMPH # 1.2 10^3/uL (1.5-5.0); LYMPH % 14.0 % (24.0-44.0); MONO # 1.0 10^3/uL (0.0-0.8); MONO % 11.9 % (2.0-8.0); NEUTROPHILS # 4.8 10^3/uL (1.5-8.5); NEUTROPHILS % 56.7 % (36.0-66.0); PLATELET COUNT, AUTOMATED 389 10^3/uL (150-450)
[2025-05-23 03:25] LABS: ALT/SGPT < 9 U/L (7.0-40); AST/SGOT 10 U/L (<34); CALCIUM LEVEL 9.9 MG/DL (8.3-10.6); CARBON DIOXIDE LEVEL 37 MMOL/L (20-31); CHLORIDE LEVEL 90 MMOL/L (98-107); CREATININE FOR GFR 1.44 MG/DL (0.70-1.30); GLOMERULAR FILTRATION RATE 48.2 (>35); MAGNESIUM LEVEL 2.1 MG/DL (1.8-2.4); POTASSIUM SERUM 5.3 MMOL/L (3.5-5.1); SODIUM LEVEL 134 MMOL/L (136-145)
[2025-05-23 03:29] VITALS: BP 144/64; TEMP 97.3; O2SAT 98
[2025-05-23 06:15] VITALS: BP 129/72; TEMP 97.7; O2SAT 100
[2025-05-23 07:03] LABS: INR 1.3
[2025-05-23 07:19] LABS: CALCIUM LEVEL 9.8 MG/DL (8.3-10.6); CARBON DIOXIDE LEVEL 35.0 MMOL/L (20-31); CHLORIDE LEVEL 90.0 MMOL/L (98-107); CREATININE FOR GFR 1.47 MG/DL (0.70-1.30); GLOMERULAR FILTRATION RATE 47.0 (>35); MAGNESIUM LEVEL 2.0 MG/DL (1.8-2.4); POTASSIUM SERUM 5.4 MMOL/L (3.5-5.1); SODIUM LEVEL 134.0 MMOL/L (136-145)
[2025-05-23] MEDS: HumuLIN R (REGULAR) INSULIN (NovoLIN R) **100 U/ML** PER UNIT IV STA (08:08)
[2025-05-23] MEDS: DEXTROSE 50% 50 ML SYRINGE IV STA (08:08)
[2025-05-23 09:08] LABS: CALCIUM LEVEL 9.1 MG/DL (8.3-10.6); CARBON DIOXIDE LEVEL 38.0 MMOL/L (20-31); CHLORIDE LEVEL 91.0 MMOL/L (98-107); CREATININE FOR GFR 1.44 MG/DL (0.70-1.30); GLOMERULAR FILTRATION RATE 48.2 (>35); POTASSIUM SERUM 4.9 MMOL/L (3.5-5.1); SODIUM LEVEL 134.0 MMOL/L (136-145)
[2025-05-23] MEDS: ALBUTEROL SULFATE 2.5 MG/0.5 ML INH CONCENTRATE NEB SOLN NEB SCH (09:17)
[2025-05-23 11:44] VITALS: BP 148/57; TEMP 98.4; O2SAT 99
[2025-05-23] MEDS ORDERED: VELT1POW PO (12:14)
[2025-05-23] MEDS ORDERED: [UNRECOGNIZED DRUG - CODE] NARES (12:15)
[2025-05-23] MEDS ORDERED: PRED20TA PO (12:25)
[2025-05-23 16:43] VITALS: BP 157/72
== END 2025-05-23 17:13 | disposition home health service (06) | DRG 197 ==
LOC: M ED 14:42 → M ED INP 20:40 → M MSPAV 05-19 14:58
PROVIDERS: ADMIT Internal Medicine; ATTEND Student in an Organized Health Care Education/Training Program
DX: J84.9 Interstitial pulmonary disease, unspecified (principal); J96.11 Chronic respiratory failure with hypoxia; I50.42 Chronic combined systolic (congestive) and diastolic (congestive) heart failure; I13.0 Hypertensive heart and chronic kidney disease with heart failure and stage 1 through stage 4 chronic kidney disease, or unspecified chronic kidney disease; J44.9 Chronic obstructive pulmonary disease, unspecified; N18.32 Chronic kidney disease, stage 3b; E11.22 Type 2 diabetes mellitus with diabetic chronic kidney disease; I25.10 Atherosclerotic heart disease of native coronary artery without angina pectoris; E11.51 Type 2 diabetes mellitus with diabetic peripheral angiopathy without gangrene; N40.0 Benign prostatic hyperplasia without lower urinary tract symptoms; H40.9 Unspecified glaucoma; R06.89 Other abnormalities of breathing; R04.0 Epistaxis; K21.9 Gastro-esophageal reflux disease without esophagitis; E87.5 Hyperkalemia; Z95.5 Presence of coronary angioplasty implant and graft; Z99.81 Dependence on supplemental oxygen; Z96.651 Presence of right artificial knee joint; Z90.49 Acquired absence of other specified parts of digestive tract; Z89.422 Acquired absence of other left toe(s); K59.09 Other constipation; Z79.82 Long term (current) use of aspirin; Z79.4 Long term (current) use of insulin; Z79.899 Other long term (current) drug therapy

== ENCOUNTER 2025-05-28 12:42 | Inpatient (IN) | payer MEDICARE ==
[~2025-05-28] VITALS: Ht 175.3 cm; Wt 79.1 kg
[~2025-05-28 12:42] MED LIST changes: +MORP-137 PO; +TIMO5DRO5 OU; +[UNRECOGNIZED DRUG - CODE] NARES
[2025-05-28 13:20] VITALS: O2SAT 93
[2025-05-28 13:22] LABS: BASO # 0.1 10^3/uL (0.0-0.2); BASO % 0.5 % (0.0-1.0); EOS # 0.9 10^3/uL (0.0-0.5); EOS % 4.0 % (0.0-3.0); LYMPH # 0.4 10^3/uL (1.5-5.0); LYMPH % 1.6 % (24.0-44.0); MONO # 1.4 10^3/uL (0.0-0.8); MONO % 6.0 % (2.0-8.0); NEUTROPHILS # 20.2 10^3/uL (1.5-8.5); NEUTROPHILS % 87.3 % (36.0-66.0); PLATELET COUNT, AUTOMATED 391 10^3/uL (150-450)
[2025-05-28 13:25] LABS: ABG BASE EXCESS 12.5 (-2.0-2.0); ABG HCO3 38.7 MMOL/L (22.0-26.0); ABG O2 SATURATION 93.1 % (95.0-99.0); ABG PARTIAL PRESSURE CO2 58.8 mmHg (35.0-45.0); ABG PARTIAL PRESSURE O2 65.3 mmHg (75.0-100.0); ABG STANDARD HCO3 36.1 MMOL/L. (22.0-26.0); ABG TOTAL CO2 40.5 MMOL/L (23.0-31.0); ABG pH (ARTERIAL) 7.436 UNITS (7.350-7.450)
[2025-05-28 14:00] LABS: CK-MB VALUE MASS 1.7 NG/ML (<3.6)
[2025-05-28 14:01] LABS: CPK CREATINE PHOSPHOKINASE 26 U/L (46-171); MB/CK RELATIVE INDEX 6.53 (< OR =4)
[2025-05-28 14:04] LABS: THYROXINE (T4) 8.3 UG/DL (4.5-10.9)
[2025-05-28 14:10] LABS: ALT/SGPT 19 U/L (7.0-40); AST/SGOT 48 U/L (<34); CALCIUM LEVEL 9.7 MG/DL (8.3-10.6); CARBON DIOXIDE LEVEL > 40.0 MMOL/L (20-31); CHLORIDE LEVEL 95 MMOL/L (98-107); CREATININE FOR GFR 1.81 MG/DL (0.70-1.30); GLOMERULAR FILTRATION RATE 36.6 (>35); POTASSIUM SERUM 5.3 MMOL/L (3.5-5.1); SODIUM LEVEL 143 MMOL/L (136-145)
[2025-05-28 14:31] LABS: KETONE, URINE AUTO RFX NEGATIVE (NEGATIVE); NITRITE, URINE AUTO RFX NEGATIVE (NEGATIVE); RBC, URINE AUTO RFX 28 /HPF (0-3); SQUAM EPITHELIAL CELL UR AURFX 0 /HPF (0-6)
[2025-05-28 14:32] LABS: LEUKOCYTE ESTERASE UR AUTO RFX 3+ (NEGATIVE); WBC, URINE AUTO RFX TNTC /HPF (0-3)
[2025-05-28] MEDS: ACETAMINOPHEN *IV* 1,000 MG in IV 1 EA IV ONE (14:41)
[2025-05-28 14:50] LABS: CK-MB VALUE MASS 1.6 NG/ML (<3.6)
[2025-05-28 14:52] LABS: CPK CREATINE PHOSPHOKINASE 23.0 U/L (46-171); MB/CK RELATIVE INDEX 6.95 (< OR =4)
[2025-05-28] MEDS: cefTRIAXone SOD 2 GM in DEXTROSE 5% (D5W) ADV/MINI-BAG 50 ML IV ONE (15:40)
[2025-05-28] MEDS: NS (Normal Saline) 0.9% 1,000 ML IV SCH ×2 (15:40→17:10)
[2025-05-28] MEDS ORDERED: NS (Normal Saline) 0.9% 1,000 ML IV SCH (15:50)
[2025-05-28] MEDS: IBUPROFEN 600 MG TAB PO ONE (16:02)
[2025-05-28] MEDS ORDERED: TORS20TA2 PO (16:22)
[2025-05-28] MEDS ORDERED: HOME MED LIST COMPLETE! XX SCH (16:25)
[2025-05-28] MEDS ORDERED: MOM 30 ML SUSPENSION UDC PO PRN (16:55)
[2025-05-28] MEDS ORDERED: GABAPENTIN 300 MG CAP PO PRN (17:05)
[2025-05-28] MEDS ORDERED: GLUCAGON INJ 1 MG VIAL SC PRN (17:10)
[2025-05-28] MEDS ORDERED: DEXTROSE 50% 50 ML SYRINGE IV PRN (17:10)
[2025-05-28] MEDS ORDERED: GLUCOSE 4 GM CHEW PO PRN (17:10)
[2025-05-28] MEDS: AZITHROMYCIN INJ 500 MG, VIAL MATE ADAPTER 1 EACH in NS 250 ML IV ONE (17:12)
[2025-05-28] MEDS: ALBUTEROL SULFATE 2.5 MG/0.5 ML INH CONCENTRATE NEB SOLN NEB SCH (17:57)
[2025-05-28] MEDS ORDERED: ALBUTEROL SULFATE 2.5 MG/0.5 ML INH CONCENTRATE NEB SOLN NEB SCH (18:00)
[2025-05-28] MEDS: PATIROMER SORBITEX CALCIUM 8.4GM POWDER PACKET PO ONE (18:17)
[2025-05-28] MEDS: INSULIN LISPRO (NovoLOG) PER UNIT SC SCH ×2 (18:18→21:00)
[2025-05-28] MEDS: ACETAMINOPHEN 325 MG TAB PO PRN (19:43)
[2025-05-28] MEDS: PIPERACILLIN/TAZOBACTAM SOD 3.375 GM in DEXTROSE 5% (D5W) ADV/MINI-BAG 50 ML IV SCH (19:43)
[2025-05-28 21:00] VITALS: BP 87/50
[2025-05-28] MEDS: MORPHINE SULFATE TAB IMM. REL. 30 MG PO SCH (21:00)
[2025-05-28] MEDS: **hydrALAZINE** 10 MG TAB PO SCH (21:00)
[2025-05-28] MEDS: DOCUSATE SODIUM 100 MG CAPSULE PO SCH (21:35)
[2025-05-28] MEDS: TAMSULOSIN 0.4 MG CAP PO SCH (21:35)
[2025-05-28] MEDS: SUCRALFATE SUSP 1GM/10ML UD PO SCH (21:35)
[2025-05-28] MEDS: SIMVASTATIN 10 MG TAB PO SCH (21:37)
[2025-05-28] MEDS: GABAPENTIN 300 MG CAP PO SCH (21:37)
[2025-05-28] MEDS: PANTOPRAZOLE 40MG TAB PO SCH (21:37)
[2025-05-28] MEDS: SENNOSIDES/DOCUSATE SODIUM 8.6 MG/50MG TAB PO SCH (21:37)
[2025-05-28] MEDS: HEPARIN SOD 5000 UNITS/ML 1 ML VIAL/SYRINGE SC SCH (21:38)
[2025-05-28] MEDS: TIMOLOL MALEATE 0.25% OPHTH SOLN 5 ML OU SCH (21:39)
[2025-05-28] MEDS: LATANOPROST 0.005% OPHTH SOLN 2.5 ML OU SCH (21:39)
[2025-05-28 22:58] VITALS: BP 131/60; TEMP 96.8
[2025-05-29] MEDS: MAALOX 30 ML SUSP *UDC PO PRN (03:13)
[2025-05-29 03:51] VITALS: BP 135/74; TEMP 97.9; O2SAT 95
[2025-05-29 04:43] VITALS: BP 97/54
[2025-05-29 06:12] LABS: BASO # 0.1 10^3/uL (0.0-0.2); BASO % 0.4 % (0.0-1.0); EOS # 0.9 10^3/uL (0.0-0.5); EOS % 3.8 % (0.0-3.0); LYMPH # 1.0 10^3/uL (1.5-5.0); LYMPH % 4.1 % (24.0-44.0); MONO # 1.6 10^3/uL (0.0-0.8); MONO % 6.4 % (2.0-8.0); NEUTROPHILS # 20.8 10^3/uL (1.5-8.5); NEUTROPHILS % 84.7 % (36.0-66.0); PLATELET COUNT, AUTOMATED 311 10^3/uL (150-450)
[2025-05-29 08:03] LABS: CALCIUM LEVEL 8.7 MG/DL (8.3-10.6); CARBON DIOXIDE LEVEL 37.0 MMOL/L (20-31); CHLORIDE LEVEL 95.0 MMOL/L (98-107); CREATININE FOR GFR 2.16 MG/DL (0.70-1.30); GLOMERULAR FILTRATION RATE 29.6 (>35); MAGNESIUM LEVEL 2.6 MG/DL (1.8-2.4); POTASSIUM SERUM 5.5 MMOL/L (3.5-5.1); SODIUM LEVEL 139.0 MMOL/L (136-145)
[2025-05-29 08:20] VITALS: BP 112/52; TEMP 97.4; O2SAT 93
[2025-05-29] MEDS ORDERED: HEPARIN SOD 5000 UNITS/ML 1 ML VIAL/SYRINGE IV PRN (09:35)
[2025-05-29] MEDS: MIRALAX *UNIT DOSE* 17 GM PACKET PO SCH (09:59)
[2025-05-29] MEDS: ETHAMBUTOL 400 MG TAB PO SCH (10:02)
[2025-05-29] MEDS: DEXTROSE 50% 50 ML SYRINGE IV STA (10:02)
[2025-05-29] MEDS: HumuLIN R (REGULAR) INSULIN (NovoLIN R) **100 U/ML** PER UNIT IV STA (10:02)
[2025-05-29] MEDS: FINASTERIDE 5 MG TAB PO SCH (10:03)
[2025-05-29] MEDS: ASPIRIN 81 MG ENTERIC TABLET PO SCH (10:03)
[2025-05-29] MEDS: AZITHROMYCIN 250 MG TABLET PO SCH (10:04)
[2025-05-29] MEDS: FERROUS SULFATE 325 MG TAB PO SCH (10:04)
[2025-05-29 10:11] VITALS: BP 104/54
[2025-05-29] MEDS: HEPARIN DRIP 25,000 UNITS in IV 1 EA IV SCH (11:23)
[2025-05-29 12:36] VITALS: BP 140/63; TEMP 97.3; O2SAT 93
[2025-05-29] MEDS: ALBUTEROL SULFATE 2.5 MG/0.5 ML INH CONCENTRATE NEB SOLN NEB SCH (12:40)
[2025-05-29 12:45] LABS: CALCIUM LEVEL 8.5 MG/DL (8.3-10.6); CARBON DIOXIDE LEVEL 34.0 MMOL/L (20-31); CHLORIDE LEVEL 93.0 MMOL/L (98-107); CREATININE FOR GFR 2.31 MG/DL (0.70-1.30); GLOMERULAR FILTRATION RATE 27.3 (>35); POTASSIUM SERUM 5.0 MMOL/L (3.5-5.1); SODIUM LEVEL 137.0 MMOL/L (136-145)
[2025-05-29] MEDS: PATIROMER SORBITEX CALCIUM 8.4GM POWDER PACKET PO SCH (13:27)
[2025-05-29] MEDS ORDERED: ATORVASTATIN 20 MG TAB PO SCH (21:00)
== END 2025-05-29 16:39 | disposition short-term general hospital (02) | DRG 177 ==
LOC: M ED 12:42 → EDBD 12:42 → M ED INP 16:54 → M PCU 22:45
PROVIDERS: ADMIT Student in an Organized Health Care Education/Training Program; ATTEND Student in an Organized Health Care Education/Training Program
PROC: B246ZZZ Ultrasonography of Right and Left Heart (ICD-10-PCS; principal; 2025-05-29)
DX: J69.0 Pneumonitis due to inhalation of food and vomit (principal); I50.23 Acute on chronic systolic (congestive) heart failure; I21.4 Non-ST elevation (NSTEMI) myocardial infarction; J96.11 Chronic respiratory failure with hypoxia; N17.9 Acute kidney failure, unspecified; I13.0 Hypertensive heart and chronic kidney disease with heart failure and stage 1 through stage 4 chronic kidney disease, or unspecified chronic kidney disease; E11.22 Type 2 diabetes mellitus with diabetic chronic kidney disease; J44.9 Chronic obstructive pulmonary disease, unspecified; R13.19 Other dysphagia; I25.10 Atherosclerotic heart disease of native coronary artery without angina pectoris; N18.30 Chronic kidney disease, stage 3 unspecified; K21.9 Gastro-esophageal reflux disease without esophagitis; H40.9 Unspecified glaucoma; E87.5 Hyperkalemia; E78.5 Hyperlipidemia, unspecified; Z99.81 Dependence on supplemental oxygen; Z79.82 Long term (current) use of aspirin; Z79.4 Long term (current) use of insulin; Z79.899 Other long term (current) drug therapy